=== PATIENT | female | born 1990 | race Two or more races ===

== ENCOUNTER → 2020-08-26 10:11 | Outpatient (BNVA) | payer OTHER, SELFPAY | PROVIDERS: PCP Internal Medicine; Referring Provider Internal Medicine; Visit Provider Advanced Practice Midwife | DX: Z39.2 Encounter for routine postpartum follow-up (principal); Z86.32 Personal history of gestational diabetes; Z72.51 High risk heterosexual behavior; G56.01 Carpal tunnel syndrome, right upper limb; M54.32 Sciatica, left side; Z23 Encounter for immunization | CPT/HCPCS: 99212 ==

== ENCOUNTER 2020-09-15 09:13 | Outpatient (REF) | payer OTHER, SELFPAY | END 2020-09-15 09:14 | disposition home or self-care (01) | LOC: HO.LAB 09:13 | PROVIDERS: PCP Internal Medicine; Visit Provider Internal Medicine | DX: Z20.828 Contact with and (suspected) exposure to other viral communicable diseases (principal) | CPT/HCPCS: U0003 ==

== ENCOUNTER → 2021-05-05 13:05 | Outpatient (BNVA) | payer OTHER, SELFPAY | PROVIDERS: PCP Internal Medicine; Visit Provider Obstetrics & Gynecology | DX: Z32.01 Encounter for pregnancy test, result positive (principal); Z78.9 Other specified health status | CPT/HCPCS: 99212 ==

== ENCOUNTER 2021-05-06 15:24 | Emergency (ER) | payer OTHER, SELFPAY ==
[2021-05-06 15:40] VITALS: BP 133/62; PULSE 91; RESP 16; O2SAT 100; BMI 45.8
[2021-05-06 16:38] LABS: Urine Pregnancy POSITIVE (NEGATIVE)
[2021-05-06 16:38] LABS: Appearance Urine CLEAR; Color Urine YELLOW; Glucose Urine UA NEG (NEG); Leukocyte Esterase Urine NEG (NEG); Nitrite Urine NEG (NEG); Specific Gravity - Urine 1.015 (1.005-1.025); Urine Blood NEG (NEG); Urine Ketones NEG (NEG); Urine Protein NEG (NEG-TRACE)
[2021-05-06 16:39] LABS: UPreg QC Valid YES
--- NOTE | 2021-05-06 16:41 | ED_ITS ---
HPI - Back Pain/Injury General Chief Complaint: Back Pain/Injury Stated Complaint: back pain Time Seen by Provider: 05/06/21 16:11 Source: patient Mode of arrival: ambulatory Limitations: no limitations History of Present Illness HPI Narrative: 30 y/o female with history of obesity, chronic low back pain who is currently ?5-6 weeks presents with acute on chronic non-traumatic lower back pain. She reports the pain is in a band along her lower back. Worse with walking and movement. No radiation of pain. No numbness, weakness or incontinence. She was seen by her [employer] DEVELOPER yesterday, told to take Tylenol for the back pain but she has not taken any today. She comes in today with continued pain. MD elicited complaint: back pain Pertinent past history: prior back pain Onset (ago): week(s) Timing: constant Severity: similar to previous episodes Similar Symptoms Previously: Yes Quality: aching Location: right lower back and left lower back Radiation: none Exacerbating factors: movement Relieving factors: none Context: unknown Associated symptoms: increased urinary frequency Work related injury: No Related Data Previous Rx's Medication Instructions Recorded desogestrel-e.estradiol 0.15 1 tab PO DAILY #84 tab 08/26/20 mg-0.02 mg(21)/e.estrad 0.01 mg(5) tablet vitamin with calcium 1 tab PO daily 30 Days #30 tab 05/05/21 no.72-iron 27 mg-folic acid 1 mg tablet lidocaine [Lidoderm] 1 patch TOPICAL DAILY #15 ea 05/06/21 Allergies Allergy/AdvReac Type Severity Reaction Status Date / Time No Known Allergies Allergy Verified 05/05/21 13:16 [No Known Allergies*] Review of Systems Review of Systems: Constitutional: No Fever, No Chills Cardiovascular: No Chest Pain, No SOB, No Orthopnea, No Edema Respiratory: No Cough, No Sputum Gastrointestinal: No Nausea, No Vomiting, No Diarrhea, No abdominal Pain Genitourinary: No Dysuria, + Urinary Frequency, No Hematuria Musculoskeletal: + joint pain, + Myalgias Skin: No Skin Lesions, No rash Neuro: No Weakness, No Numbness, No Dizziness, No Headache Psych: No Anxiety/Panic, No Depression Heme/Lymph: No Bruising, No Lymphadenopathy PMFSH Past Medical History Attestation statement: The following information was validated with the patient. Medical History Gestational diabetes History of chicken pox Miscarriage Obesity Scalp cyst Surgical History History of tonsillectomy Family History Family History Father High cholesterol CVD (cardiovascular disease) Mother HTN (hypertension) Maternal Grandmother Chronic mental illness ETOHism Maternal Aunt Asthma Paternal Aunt Diabetes mellitus Social History Social History Alcohol intake: never Advance Directives: No Advance Directives Information Provided: Yes Patient : Yes Sexual orientation: Straight/Heterosexual Gender identity: female Physical Exam Vital Signs: Vital Signs: Last Vital Signs Pulse 91 05/06/21 15:40 Resp 16 05/06/21 15:40 BP 133/62 05/06/21 15:40 Pulse Ox 100 05/06/21 15:40 Body Mass Index 45.8 Appearance: Alert. Oriented X3. No acute distress. HEENT: normal inspection CVS: Normal heart rate and rhythm. Pulses normal. Respiratory: No respiratory distress. Skin: Skin warm and dry. Normal skin color. Normal skin turgor. No rashes. Back: soft tissue tenderness of low lumbar area bilaterally with palpable spasm. no spinal tenderness Extremities: atraumatic, no edema Neuro: Oriented X 3. No motor deficit. No sensory deficit. Course Course Course Narrative: 30 y/o female presenting with acute on chronic low back pain. No injury. Urinary frequency but no dysuria. Will check UA to r/o infection and hematuria. We discussed limited treatment options given she is . Reevaluation(s) Reevaluation #1: UA negative. Stable for d/c with Tylenol and Lidoderm and [employer] follow up. MDM - Back Pain/Injury Lab Data Labs: Lab Results 05/06/21 05/06/21 Range/Units 16:22 16:24 Urine Color YELLOW Urine Appearance CLEAR Urine pH 7.0 (5.0-8.0) Ur Specific [place] 1.015 (1.005-1.025) Urine Protein NEG (NEG-TRACE) MG/DL Urine Glucose (UA) NEG (NEG) MG/DL Urine Ketones NEG (NEG) MG/DL Urine Blood NEG (NEG) Urine Nitrite NEG (NEG) Ur Leukocyte Esterase NEG (NEG) Urine Test POSITIVE H (NEGATIVE) Critical Care Time Critical Care Time Critical Care Time: No Discharge Plan Discharge Clinical Impression: Strain of lumbar region Qualifiers: Encounter type: initial encounter Qualified Code(s): S39.012A - Strain of muscle, fascia and tendon of lower back, initial encounter Patient Disposition: Home, Self-Care Instructions: Low Back Strain (ED), Lower Back Exercises (ED) Additional Instructions: Your urine test is negative for infection. Unfortunately there are limited treatments for back pain given you are . Recommend Tylenol 650-975 mg every 6 hours for pain. Use prescribed topical pain patches as needed for pain. No bending, lifting or twisting. Use ice several times per day for 20 minutes at a time for the next 48 hours and then change to heat. Follow up with your Primary Care Doctor & [employer] DEVELOPER this week. If your pain worsens, if you develop new numbness, tingling, weakness, loss of function or incontinence call 911 or come back to the ER right away for evaluation. Prescriptions: New lidocaine [Lidoderm] 5 % adhesive patch,medicated 1 patch topical DAILY Qty: 15 RF: 0 No Action desog-e.estradiol/e.estradiol [Mirlibratte (28)] 0.15-0.02 mgx21 /0.01 mg x 5 tablet 1 tab PO DAILY Qty: 84 RF: 3 Vitamin Plus Low Iron 27 mg iron- 1 mg tablet 1 tab PO daily 30 Days Qty: 30 RF: 11
[2021-05-06] MEDS: Lidocaine 4 % Patch ADH..PATCH 2 PATCH TRANSDERMA (16:53)
[2021-05-06] MEDS: Acetaminophen 325 MG TABLET 975 MG PO (16:53)
[2021-05-06] MEDS: Lidocaine 4 % Patch ADH..PATCH 1 PATCH TRANSDERMA (17:01)
--- NOTE | 2021-05-06 17:14 | PC.NURSE ---
RN ONLY APPLIED 2 OF THE 3 PATCHES TO PTS BACK
== END 2021-05-06 17:17 | disposition home or self-care (01) ==
PROVIDERS: Physician Assistant; Emergency Provider Emergency Medicine; PCP Internal Medicine
DX: O9A.211 Injury, poisoning and certain other consequences of external causes complicating pregnancy, first trimester (principal); S39.012A Strain of muscle, fascia and tendon of lower back, initial encounter; Z3A.00 Weeks of gestation of pregnancy not specified; X58.XXXA Exposure to other specified factors, initial encounter; Y93.9 Activity, unspecified; Y92.9 Unspecified place or not applicable; Y99.9 Unspecified external cause status
CPT/HCPCS: 81003; 81025; 99283; 99284

== ENCOUNTER 2021-05-08 14:34 | Outpatient (REF) | payer OTHER, SELFPAY ==
--- NOTE | ~2021-05-08 | US_ITS ---
EXAMINATION: OBSTETRICAL ULTRASOUND, FIRST TRIMESTER HISTORY: 30-year-old with the unknown LMP LMP: Approximately 03/22/2021 COMPARISON: None in this TECHNIQUE: Real time transabdominal imaging with color and M-mode Doppler. FINDINGS: In intrauterine, irregularly shaped gestational sac with a mean sac diameter of the 9.5 mm corresponding to 5 weeks 4 days is noted. No embryonic pole or heart motion was noted. Both maternal ovaries are seen and appear normal. GESTATIONAL AGE: 1. GA from LMP: N/A wks 2. GA from AUA: 5 4 wks ESTIMATED DATE OF DELIVERY: 1. BUDDY from LMP: N/A 2. BUDDY from AUA: 01/04/2022 US/US OB <= 14 weeks fetus IMPRESSION: 1. An empty intrauterine gestational sac 2. No embryonic pole 3. Normal ovaries 4. No free fluid Discussion: I informed the patient that the today's examination can be consistent with very early gestation. She denies vaginal bleeding or pelvic pain. Consider serial beta hCG and/or follow-up ultrasound in approximately one week. Thank you very much for this referral. This note was generated with a voice recognition program. Please excuse any errors which may have been overlooked during my review of this note. Sometimes these errors may affect the content or meaning of a given sentence.
--- NOTE | ~2021-05-08 | US_ITS ---
EXAMINATION: OBSTETRICAL ULTRASOUND, FIRST TRIMESTER HISTORY: 30-year-old with the unknown LMP LMP: Approximately 03/22/2021 COMPARISON: None in this TECHNIQUE: Real time transabdominal imaging with color and M-mode Doppler. FINDINGS: In intrauterine, irregularly shaped gestational sac with a mean sac diameter of the 9.5 mm corresponding to 5 weeks 4 days is noted. No embryonic pole or heart motion was noted. Both maternal ovaries are seen and appear normal. GESTATIONAL AGE: 1. GA from LMP: N/A wks 2. GA from AUA: 5 4 wks ESTIMATED DATE OF DELIVERY: 1. BUDDY from LMP: N/A 2. BUDDY from AUA: 01/04/2022 US/US OB transvaginal IMPRESSION: 1. An empty intrauterine gestational sac 2. No embryonic pole 3. Normal ovaries 4. No free fluid Discussion: I informed the patient that the today's examination can be consistent with very early gestation. She denies vaginal bleeding or pelvic pain. Consider serial beta hCG and/or follow-up ultrasound in approximately one week. Thank you very much for this referral. This note was generated with a voice recognition program. Please excuse any errors which may have been overlooked during my review of this note. Sometimes these errors may affect the content or meaning of a given sentence.
== END 2021-05-08 14:35 | disposition home or self-care (01) ==
LOC: HO.US 14:34
PROVIDERS: Visit Provider Obstetrics & Gynecology
DX: Z36.87 Encounter for antenatal screening for uncertain dates (principal); Z78.9 Other specified health status
CPT/HCPCS: 76801; 76817

== ENCOUNTER 2021-05-29 14:05 | Outpatient (REF) | payer OTHER, SELFPAY ==
--- NOTE | ~2021-05-29 | US_ITS ---
EXAMINATION: OBSTETRICAL ULTRASOUND, FIRST TRIMESTER HISTORY: 30-year-old at the 8.4 weeks of gestation Viability LMP: N/A COMPARISON: 05/08/2021 TECHNIQUE: Real time transabdominal imaging with color and M-mode Doppler. FINDINGS: A single, live IUP CRL of 19.2 mm c/w 8.4wks is noted. Heart Rate: 172 beats per minute. Both maternal ovaries are seen and appear normal. GESTATIONAL AGE: 1. GA from LMP: 8.4 wks 2. GA from AUA: 8.4 wks ESTIMATED DATE OF DELIVERY: 1. BUDDY from LMP: 01/04/2022 2. BUDDY from AUA: 01/04/2022 US/US OB <= 14 weeks fetus IMPRESSION: 1. A single live IUP 2. Normal ovaries 3. Best BUDDY 01/04/2022 Thank you very much for this referral. This note was generated with a voice recognition program. Please excuse any errors which may have been overlooked during my review of this note. Sometimes these errors may affect the content or meaning of a given sentence.
== END 2021-05-29 14:06 | disposition home or self-care (01) ==
LOC: HO.US 14:05
PROVIDERS: Visit Provider Obstetrics & Gynecology
DX: O36.80X0 Pregnancy with inconclusive fetal viability, not applicable or unspecified (principal)
CPT/HCPCS: 76801

== ENCOUNTER → 2021-06-10 09:51 | Outpatient (BNVA) | payer OTHER, SELFPAY | PROVIDERS: PCP Internal Medicine; Visit Provider Obstetrics & Gynecology | DX: Z34.91 Encounter for supervision of normal pregnancy, unspecified, first trimester (principal); Z3A.10 10 weeks gestation of pregnancy | CPT/HCPCS: 99212 ==

== ENCOUNTER 2021-06-19 10:35 | Outpatient (REF) | payer OTHER, SELFPAY ==
--- NOTE | ~2021-06-19 | US_ITS ---
EXAMINATION: OBSTETRICAL ULTRASOUND, FIRST TRIMESTER HISTORY: 30-year-old at 11.4 weeks of gestation NT screening COMPARISON: 05/29/2021 TECHNIQUE: Real time transabdominal imaging with color and M-mode Doppler. FINDINGS: A single, live IUP CRL of 52.8 mm c/w 12.0wks is noted. Heart Rate: 144 beats per minute. Normal yolk sac seen. NT was 1.2.mm. NB Present The embryo appears sonographically wnl for this GA. Both maternal ovaries are seen and appear normal. GESTATIONAL AGE: 1. Established GA: 11.4 wks 2. GA from AUA: 12.0 wks ESTIMATED DATE OF DELIVERY: 1. Established BUDDY: 01/04/2022 2. BUDDY from AUA: 01/01/2022 US/US OB 1T nuc measure IMPRESSION: 1. A single live IUP 2. Size equals dates 3. NT of 1.2 mm MFM Consultation: I reviewed the ultrasound findings along with significance of NT measurement. The NT of less than 3mm is generally reassuring. However, the sensitivity for T21 detection is only 60%. I reviewed the availability of serum aneuploidy screening which includes cell-free DNA and placental protein based tests. I discussed the sensitivity, false-positive rate, and other limitations associated with each test. I also reviewed the availability of invasive diagnostic tests that are associated small but definite risk of miscarriage. We also reviewed the differences between screening tests and diagnostic tests. After our discussion, she opted for the First trimester screening that is based on cell-free DNA or non-invasive testing (NIPT). The result will be faxed to your office in approximately 7 days. A follow up at 18 weeks for survey has been scheduled. Thank you very much for this referral. Total time 30 minutes. The time spent was devoted to counseling the patient about the disease and diagnosis, coordinating care including reviewing her records, pertinent lab data and studies, as well as discussing diagnostic evaluation and workup, plan therapeutic interventions and future disposition of care. This includes any additional research needed to obtain further information in formulating the plan of care of this patient. This note was generated with a voice recognition program. Please excuse any errors which may have been overlooked during my review of this note. Sometimes these errors may affect the content or meaning of a given sentence.
== END 2021-06-19 10:36 | disposition home or self-care (01) ==
LOC: HO.US 10:35
PROVIDERS: Visit Provider Obstetrics & Gynecology
DX: Z36.82 Encounter for antenatal screening for nuchal translucency (principal)
CPT/HCPCS: 76813

== ENCOUNTER 2021-06-25 11:25 | Outpatient (REF) | payer OTHER, SELFPAY ==
[2021-06-25 13:14] LABS: Hematocrit 34.6 % (37-47); Hemoglobin 10.9 g/dl (12.0-16.0); Mean Corpuscular HGB Conc 31.5 g/dl (31.0-35.0); Mean Corpuscular Hemoglobin 24.3 pg (27.0-33.0); Mean Corpuscular Volume 77.2 fL (80-98); Mean Platelet Volume 11.1 fL (9.4-12.3); Platelet Count 226 X10*3/uL (160-400); Red Blood Count 4.48 X10*6/uL (4.20-5.50); Red Cell Distribution Width 16.2 % (11.0-16.0); White Blood Count 7.6 X10*3/uL (4.8-10.8)
[2021-06-25 13:28] LABS: Glucose 1 Hour PP 50gm Dose 148 mg/dL (60-140)
[2021-06-25 14:06] LABS: Fentanyl, urine Not Detected (Not Detect)
[2021-06-25 14:25] LABS: Amphetamine Screen Urine Not Detected (Not Detect); Barbiturates, Urine Not Detected (Not Detect); Benzodiazepines Screen Urine Not Detected (Not Detect); Cannabinoid Screen Urine Not Detected (Not Detect); Cocaine Screen Urine Not Detected (Not Detect); Opiate Screen Urine Not Detected (Not Detect); Phencyclidine Screen Urine Not Detected (Not Detect)
[2021-06-26 04:31] LABS: HBsAGNum1 0.19 S/CO (0.00-0.99); HIV AB/AG Nonreactive (Nonreactive); HIV Num 1 0.05 S/CO (0.00-0.99); Hepatitis B Surface Antigen Negative (Negative); ~HepC Num1 0.15 S/CO (0.00-0.79); ~Hepatitis C Antibody Nonreactive (Nonreactive)
[2021-06-27 01:22] LABS: Rubella IgG Antibody 1.17 Index
[2021-06-27 08:29] LABS: Syphilis Screen Nonreactive (Nonreactive)
== END 2021-06-25 11:26 | disposition home or self-care (01) ==
LOC: HO.LAB 11:25
PROVIDERS: PCP Internal Medicine; Visit Provider Obstetrics & Gynecology
DX: Z34.90 Encounter for supervision of normal pregnancy, unspecified, unspecified trimester (principal)
CPT/HCPCS: 80307; 85027; 86762; 86780; 86787; 86803; 86850; 86900; 86901; 87086; 87340; 87389

== ENCOUNTER 2021-07-23 10:50 | Outpatient (REF) | payer OTHER, SELFPAY ==
[2021-07-24 02:56] LABS: CT PCR NOT DETECTED (Not Detect.); NG PCR NOT DETECTED (Not Detect.)
[2021-07-24 11:29] LABS: BV Int Neg Control Negative (Negative); BV Int Pos Control Positive (Positive)
== END 2021-07-23 10:51 | disposition home or self-care (01) ==
LOC: HO.LAB 10:50
PROVIDERS: PCP Internal Medicine; Visit Provider Advanced Practice Midwife
DX: O09.299 Supervision of pregnancy with other poor reproductive or obstetric history, unspecified trimester (principal); O99.810 Abnormal glucose complicating pregnancy; O99.212 Obesity complicating pregnancy, second trimester; E66.01 Morbid (severe) obesity due to excess calories; Z3A.16 16 weeks gestation of pregnancy; Z68.41 Body mass index [BMI] 40.0-44.9, adult; Z86.32 Personal history of gestational diabetes
CPT/HCPCS: 81003; 87480; 87491; 87510; 87591; 87660; 99212

== ENCOUNTER 2021-08-14 13:28 | Outpatient (REF) | payer OTHER, SELFPAY ==
--- NOTE | ~2021-08-14 | US_ITS ---
EXAMINATION: US OBSTETRICAL CLINICAL INFORMATION: A 31-year-old at the 19.4 weeks of gestation Suspected anomaly High BMI COMPARISON: 06/19/2021 TECHNIQUE: Real-time transabdominal ultrasound was performed using C1-5 megahertz transducer. FINDINGS: A single, active, fetus is seen in vertex presentation. The placenta is anterior without previa, and the amniotic fluid volume is wnl. MEASUREMENTS: 1. Biparietal Diameter: 4.6 cm; 19.6 wks 2. Occipital Frontal Diameter: 5.9 cm 3. Head Circumference: 16.95 cm; 19.5 wks 4. Abdominal Circumference: 15.1 cm; 20.3 wks 5. Femur Length: 3.23 cm; 20.1 wks 6. Humerus Length: 3.2 cm; 20.5 wks 7. Tibia Length: 2.6 cm; 19.3 wks 8. Ulna Length: 2.9 cm; 20.6 wks 9. Lateral ventricle: 0.8 cm 10. Cerebellum: 1.91 cm; 19.5 wks 11. Cisterna Magna: 0.4 cm 12. Nuchal Fold: 3.83 mm 13. Heart Rate: 143 beats per minute Rt ovary: normal Lt ovary: normal Cervical length 4.6 cm on T/A. GESTATIONAL AGE: 1. Established GA: 19.4 wks 2. GA from [facility]: 20.1 wks ESTIMATED DATE OF DELIVERY: 1. Established BUDDY: The 01/04/2022 2. BUDDY from [facility]: 12/31/2021 ANATOMY: The view of RVOT was suboptimal due to position and maternal body habitus. The visualized anatomy includes but not limited to: 1. Cranium: Normal 2. Intracranial anatomy: cavum septum pellucidi, lateral ventricles, choroid plexus, cerebellum, posterior fossa, third and fourth ventricles. 3. face: orbits, lip/palate, profile, nasal bone 4. Heart: four-chamber view of the heart, ventricular septum, foramen ovale, pulmonary vein, left and right outflow tracts, three-vessel view, 3 vessel trachea view, aortic and ductal arches, situs.. 5. Diaphragm: Normal 6. Abdominal wall: Normal 7. Cord Insertion: Normal 8. Spine: Cervical, thoracic, lumbar, sacral. 9. Stomach: Normal size and shape 10. Right Kidney: Normal 11. Left Kidney: Normal 12. 3 vessel cord: Normal 13. Upper extremity: Open hands, fifth digit. 14. Lower extremity: Tibia, fibula, bilateral feet. 15. Bladder: Normal 16. Genitalia: Female, patient aware US/US OB /maternal detail IMPRESSION: 1. Single, living, intrauterine with appropriate biometry. 2. Suboptimal views of RVOT. Remainder of the survey was within normal limits. DISCUSSION: I reviewed today's ultrasound findings. We discussed the limitations of ultrasound in diagnosing aneuploidy and other congenital abnormalities. I reviewed the differences between screening test and diagnostic test. Amniocentesis was discussed and declined. She was informed that the baseline incidence of congenital abnormalities is approximately 3-5%. Not all these conditions are diagnosable in utero. RECOMMENDATIONS: 1. A follow-up has been scheduled in 3 weeks. Thank you for allowing me to participate in her care. Total time 30 minutes. The time spent was devoted to counseling the patient about the disease and diagnosis, coordinating care including reviewing her records, pertinent lab data and studies, as well as discussing diagnostic evaluation and workup, plan therapeutic interventions and future disposition of care. This includes any additional research needed to obtain further information in formulating the plan of care of this patient. This note was generated with a voice recognition program. Please excuse any errors which may have been overlooked during my review of this note. Sometimes these errors may affect the content or meaning of a given sentence.
== END 2021-08-14 13:29 | disposition home or self-care (01) ==
LOC: HO.US 13:28
PROVIDERS: PCP Internal Medicine; Visit Provider Advanced Practice Midwife
DX: Z36.3 Encounter for antenatal screening for malformations (principal)
CPT/HCPCS: 76811

== ENCOUNTER → 2021-08-20 10:53 | Outpatient (BNVA) | payer OTHER, SELFPAY | PROVIDERS: PCP Internal Medicine; Visit Provider Advanced Practice Midwife | DX: O24.419 Gestational diabetes mellitus in pregnancy, unspecified control (principal); O99.212 Obesity complicating pregnancy, second trimester; E66.01 Morbid (severe) obesity due to excess calories; Z3A.20 20 weeks gestation of pregnancy; Z86.32 Personal history of gestational diabetes | CPT/HCPCS: 81003; 99212 ==

== ENCOUNTER 2021-09-04 13:54 | Outpatient (REF) | payer OTHER, SELFPAY ==
--- NOTE | ~2021-09-04 | US_ITS ---
EXAMINATION: OBSTETRICAL ULTRASOUND, Follow up HISTORY: 31-year-old at the 22.4 weeks of gestation High BMI GDM Complete the survey COMPARISON: 08/14/2021 TECHNIQUE: Real time transabdominal imaging with color and M-mode Doppler. PRESENTATION: Vertex PLACENTA LOCATION: Anterior without previa AMNIOTIC FLUID: Normal MEASUREMENTS: 1. Biparietal Diameter: 5.7 cm; 23.3 wks 2. Head Circumference: 20.4 cm; 22.4 wks 3. Abdominal Circumference: 18.7 cm; 23.4 wks 4. Femur Length: 4.0 cm; 22.6 wks 5. Heart Rate: 146 beats per minute WEIGHT: Estimated weight is 568 grams (1 lbs 4 oz) -- 72 %. Normal views of lateral cerebral ventricle, profile, nose/lips, 4ch view, LVOT, RVOT, gender. GESTATIONAL AGE: 1. Established GA: 22.4 wks 2. GA from AUA: 23.1 wks ESTIMATED DATE OF DELIVERY: 1. Established BUDDY: 01/04/2022 2. BUDDY from AUA: 12/31/2021 US/US OB follow up IMPRESSION: 1. A single fetus with appropriate interval growth. 2. Previously limited views of the anatomy were seen as listed above. No abnormalities were noted in visualized anatomy. 3. This completes the survey. She is currently on GDM diet. Reports that her fasting values range from 101-105. Has not been keeping track of her postprandial glucose values. We discussed the clinical consequences of suboptimally controlled maternal blood sugar. These include the macrosomia as well as hypoglycemia. Suggest a follow-up in 4 weeks (not scheduled). I reviewed the limitations of ultrasound in diagnosing aneuploidy and other congenital abnormalities. She was informed that the baseline instance of congenital abnormalities and defects in the general population is approximately 3-5%. Not all these conditions are diagnosable in utero. Thank you very much for this referral. Total time 30 minutes. The time spent was devoted to counseling the patient about the disease and diagnosis, coordinating care including reviewing her records, pertinent lab data and studies, as well as discussing diagnostic evaluation and workup, plan therapeutic interventions and future disposition of care. This includes any additional research needed to obtain further information in formulating the plan of care of this patient. This note was generated with a voice recognition program. Please excuse any errors which may have been overlooked during my review of this note. Sometimes these errors may affect the content or meaning of a given sentence.
== END 2021-09-04 13:55 | disposition home or self-care (01) ==
LOC: HO.US 13:54
PROVIDERS: Visit Provider Advanced Practice Midwife
DX: O24.419 Gestational diabetes mellitus in pregnancy, unspecified control (principal)
CPT/HCPCS: 76816

== ENCOUNTER → 2021-09-08 12:36 | Outpatient (BNVA) | payer OTHER, SELFPAY | PROVIDERS: PCP Internal Medicine; Visit Provider Obstetrics & Gynecology | DX: O24.415 Gestational diabetes mellitus in pregnancy, controlled by oral hypoglycemic drugs (principal); O40.2XX0 Polyhydramnios, second trimester, not applicable or unspecified; O09.292 Supervision of pregnancy with other poor reproductive or obstetric history, second trimester; Z3A.23 23 weeks gestation of pregnancy; Z79.84 Long term (current) use of oral hypoglycemic drugs | CPT/HCPCS: 99212 ==

== ENCOUNTER 2021-09-10 09:41 | Outpatient (REF) | payer OTHER, SELFPAY ==
--- NOTE | 2021-09-10 09:44 | EMG_ITS ---
Right median and ulnar motor and sensory studies were performed. Right radial sensory studies were performed and paraspinal muscles were tested. IMPRESSION: [id number] right median neuropathy across carpal tunnel. MD JAYLEEN Mullins/GIOVANNI / [id number]
== END 2021-09-10 09:42 | disposition home or self-care (01) ==
LOC: HO.NEURO 09:41
PROVIDERS: Visit Provider Internal Medicine
DX: R20.0 Anesthesia of skin (principal); R20.2 Paresthesia of skin
CPT/HCPCS: 95886; 95909

== ENCOUNTER → 2021-09-16 13:08 | Outpatient (BNVA) | payer OTHER, SELFPAY | PROVIDERS: Visit Provider Obstetrics & Gynecology | DX: O24.415 Gestational diabetes mellitus in pregnancy, controlled by oral hypoglycemic drugs (principal); Z3A.24 24 weeks gestation of pregnancy | CPT/HCPCS: 99212 ==

== ENCOUNTER → 2021-10-01 12:43 | Outpatient (BNVA) | payer OTHER, SELFPAY | PROVIDERS: Visit Provider Obstetrics & Gynecology | DX: O24.415 Gestational diabetes mellitus in pregnancy, controlled by oral hypoglycemic drugs (principal); Z3A.26 26 weeks gestation of pregnancy | CPT/HCPCS: 99212 ==

== ENCOUNTER 2022-01-28 17:49 | Emergency (ER) | payer OTHER, SELFPAY ==
--- NOTE | ~2022-01-28 | US_ITS ---
EXAMINATION: US ABDOMEN LIMITED CLINICAL INFORMATION: Question gallstones with nausea vomiting and right upper quadrant pain. COMPARISON: None TECHNIQUE: Real-time imaging of the gallbladder only was performed. FINDINGS: GALLBLADDER: Numerous gallstones are present in the gallbladder. The patient was tender over the gallbladder (positive Khan's sign). The gallbladder wall measured 3 mm in thickness. No pericholecystic fluid was seen. No fluid was noted in the gallbladder wall. COMMON BILE DUCT: Normal in caliber measuring 0.4 cm in diameter. US/US abdomen limited IMPRESSION: Cholelithiasis with a positive Khan's sign. No pericholecystic fluid collections or grossly abnormal wall thickening. The common bile duct was normal in caliber.
[2022-01-28 17:52] VITALS: BP 134/112; PULSE 115; RESP 19; TEMP 36.9; O2SAT 98; BMI 42.5
--- NOTE | 2022-01-28 18:17 | ECG_ITS ---
Test Reason : ABD PAIN Blood Pressure : / mmHG Vent. Rate : 083 BPM Atrial Rate : 083 BPM P-R Int : 172 ms QRS Dur : 102 ms QT Int : 366 ms P-R-T Axes : 043 050 030 degrees QTc Int : 430 ms Sinus rhythm with marked sinus arrhythmia Incomplete right bundle branch block Borderline ECG No previous ECGs available Referred By: Es Powell Electronically Signed By:PRASHANT THOMASON
--- NOTE | 2022-01-28 18:19 | ED_ITS ---
HPI - Abdominal Pain General Chief Complaint: Abdominal Pain Stated Complaint: severe abd pain, difficulty breathing Time Seen by Provider: 01/28/22 18:12 Source: patient Mode of arrival: ambulatory Limitations: no limitations History of Present Illness HPI narrative: 31yo female with pmh of obesity here with complaints of upper abdominal pain, nausea and vomiting for the last 1 hour. Patient had intermittent episodes the last few weeks. Patient reports pain radiates up the chest. There is no shortness of breath, cough, fever, urinary symptoms, diarrhea or constipation. Related Data Previous Rx's Medication Instructions Recorded ferrous sulfate 324 mg (65 mg 324 mg PO BID #60 tab 07/23/21 iron) tablet,delayed release vitamin with calcium 1 tab PO DAILY #90 tab 07/23/21 no.72-iron 27 mg-folic acid 1 mg tablet ( Vitamins Plus Low Iron) blood sugar diagnostic (FreeStyle #150 ea 08/20/21 Lite Strips) blood-glucose meter (FreeStyle #1 ea 08/20/21 [place] Lite) lancets 28 gauge (FreeStyle #100 ea 08/20/21 Lancets) metformin 500 mg tablet 500 mg PO DAILY #60 tab 09/08/21 Allergies Allergy/AdvReac Type Severity Reaction Status Date / Time No Known Allergies Allergy Verified 08/20/21 11:00 [No Known Allergies*] Review of Systems Review of Systems Yes all other systems are reviewed and are negative Constitutional: Reports no additional constitutional complaints, Denies body ache(s), Denies chills, Denies fever(s), Denies headache(s) and Denies weakness Eyes: Reports no additional eye complaints and Denies change in vision Reports system reviewed and no additional complaints, except as documented, Denies dizziness, Denies headache(s), Denies nasal congestion, Denies nasal discharge and Denies neck pain Cardiovascular: Reports no additional cardiovascular complaints, Reports chest pain, Denies leg edema and Denies dyspnea Respiratory: Reports no additional respiratory complaints, Denies cough and Denies dyspnea Gastrointestinal: Reports no additional gastrointestinal complaints, Reports abdominal pain, Denies diarrhea, Reports nausea and Reports vomiting Genitourinary: Reports no additional female genitourinary complaints and Denies urinary incontinence Musculoskeletal: Reports no additional musculoskeletal complaints, Denies back pain, Denies arthralgias, Denies joint swelling, Denies neck pain, Denies numbness and Denies tingling Skin/Breast: Reports system reviewed and no additional complaints, except as docu and Denies rash Reports system reviewed and no additional complaints, except as documented, Denies dizziness, Denies headache(s), Denies numbness, Denies tingling and Denies weakness PMFSH Past Medical History Attestation statement: The following information was validated with the patient. Source: old records reviewed and nursing notes reviewed Medical History Gestational diabetes History of chicken pox Miscarriage Numbness and tingling in right hand Obesity Scalp cyst Surgical History History of tonsillectomy Family History Family History Father High cholesterol CVD (cardiovascular disease) Mother HTN (hypertension) Maternal Grandmother Chronic mental illness ETOHism Maternal Aunt Asthma Paternal Aunt Diabetes mellitus Social History Social History Household Members: Children Housing: Apartment Alcohol intake: former Patient Tobacco Use Status: Never used Tobacco e-Cigarette/Vaping Use: Never Used Second Hand Smoke Exposure: No Special jony needs: No Agree to transfusion: Yes Advance Directives: No Advance Directives Information Provided: No Patient : No service: No Current occupational status: employed Sexual orientation: Straight/Heterosexual Gender identity: Female Physical Exam ED Vital Signs: Vital Signs - 24 hr 01/28/22 17:52 Temperature 98.5 F Pulse Rate 115 H Respiratory Rate 19 Blood Pressure 134/112 H Pulse Oximetry 98 BMI result Body Mass Index 42.5 Const Other: +in pain, crying General: alert Orientation/consciousness: patient oriented x3 Limitations: no limitations HENMT Head: Yes normal to inspection Ears: hearing grossly normal bilaterally General nose exam: Normal external nose present Face and sinus: Yes normal facial exam Mouth: Normal oral and palatal mucosa present Throat: Yes posterior oropharynx normal, Yes tonsils normal and Yes uvula midline Eyes General: appearance normal, both eyes and all related structures Pupils: Equal, round and reactive pupils present Neck Neck: Yes normal visual inspection, Yes full ROM, Yes no lymphadenopathy and Yes no meningeal signs Chest Chest palpation & inspection: normal inspection of the chest Resp Effort & Inspection: normal respiratory effort Auscultation: clear to auscultation bilaterally Cardio Rate: regular rate Rhythm: regular rhythm Peripheral pulses: Peripheral pulses 2+ throughout GI Inspection: Yes normal to inspection Palpation (GI): Soft to palpation and Tenderness to palpation present (GI) (epigastric ) General: Yes no CVA tenderness Back/Spine/Pelvis Back: no CVA tenderness Skin General skin exam: no rashes or lesions noted Neuro General: patient oriented x3, moves all extremities and no meningeal signs Cranial nerves: Yes Equal, round and reactive pupils present Extrem General: Yes normal to inspection, Yes no pedal edema and Yes no calf tenderness Course Course Course Narrative: 31 yo female here with upper AP, vomiting. Will check labs, EKG, UA, abdominal US 1999-ultrasound shows gallstones with no evidence of acute cholecystitis. Patient is feeling improved after receiving 1 dose of morphine. Her labs are unremarkable. Her LFTs are all normal. Her repeat abdominal exam shows no pain. She is tolerating liquids with no additional vomiting episodes. I discussed with her that we can discharge her home. She should follow a low-fat diet and follow-up with surgery for elective cholecystectomy if she wishes. Reviewed worrisome signs and symptoms of when to return to the emergency depar tment. Comfortable discharge home. MDM - Abdominal Pain MDM Narrative Medical decision making narrative: Gastritis, GERD, ACS, cholecystitis Medical Records Attestation: I reviewed the patient's medical records. Lab Data Attestation: I reviewed the patient's lab results. Result diagrams: 01/28/22 18:44 01/28/22 18:44 Labs: Lab Results 01/28/22 01/28/22 01/28/22 Range/Units 18:44 18:44 18:44 WBC 9.0 (4.8-10.8) X10*3/uL RBC 4.87 (4.20-5.50) X10*6/uL Hgb 10.9 L (12.0-16.0) g/dl Hct 36.0 L (37.0-47.0) % MCV 73.9 L (80.0-98.0) fL MCH 22.4 L (27.0-33.0) pg MCHC 30.3 L (31.0-35.0) g/dl RDW 18.0 H (11.0-16.0) % Plt Count 308 (160-400) X10*3/uL MPV 10.2 (9.4-12.3) fL Immature Gran % (Auto) 0.7 H (0.0-0.4) % Neut % (Auto) 52.0 (45-73) % Lymph % (Auto) 37.0 (20-40) % [place] % (Auto) 7.8 (2-11) % Eos % (Auto) 2.2 (0-4) % Baso % (Auto) 0.3 (0-2) % Lymph # (Auto) 3.3 (1.2-4.9) X10*3/uL [place] # (Auto) 0.7 (0.1-1.2) X10*3/uL Eos # (Auto) 0.2 (0.0-0.4) X10*3/uL Baso # (Auto) 0.0 (0.0-0.2) X10*3/uL Abs Immat Gran (auto) 0.06 H (0.00-0.03) X10*3/uL Absolute Neuts (auto) 4.7 (2.0-8.3) x10*3/uL Absolute Nucleated RBC 0.000 (0.0-0.012) X10*3/uL Nucleated RBC % (auto) 0.0 (0.0-0.2) /100WBC Sodium 141 (135-145) mmol/L Potassium 3.8 (3.3-5.1) mmol/L Chloride 107 (96-108) mmol/L Carbon Dioxide 24 (22-29) mmol/L Anion Gap 14 (12-20) BUN 10 (9-16) mg/dL Creatinine 0.67 (0.5-1.4) mg/dL Estim Creat Clear Calc 146.6 Estimated GFR > 60 Random Glucose 91 (60-115) mg/dL Calcium 9.4 (8.4-10.2) mg/dL Total Bilirubin 0.6 (0.0-1.0) mg/dL Direct Bilirubin 0.3 (0.0-0.5) mg/dL AST 24 (5-31) U/L ALT 26 (0-31) U/L Alkaline Phosphatase 109 (39-117) U/L Troponin I High Sens < 3.5 (<3.5-17.0) ng/L Total Protein 7.3 (6.5-8.0) g/dL Albumin 4.2 (3.5-5.0) g/dL Urine Color Urine Appearance Urine pH (5.0-8.0) Ur Specific [place] (1.005-1.025) Urine Protein (NEG-TRACE) MG/DL Urine Glucose (UA) (NEG) MG/DL Urine Ketones (NEG) MG/DL Urine Blood (NEG) Urine Nitrite (NEG) Ur Leukocyte Esterase (NEG) Urine RBC (0) /HPF Urine WBC (0-4) /HPF Ur Squamous Epith Cells /LPF Urine Bacteria /LPF Urine Test (NEGATIVE) 01/28/22 01/28/22 Range/Units 20:21 20:21 WBC (4.8-10.8) X10*3/uL RBC (4.20-5.50) X10*6/uL Hgb (12.0-16.0) g/dl Hct (37.0-47.0) % MCV (80.0-98.0) fL MCH (27.0-33.0) pg MCHC (31.0-35.0) g/dl RDW (11.0-16.0) % Plt Count (160-400) X10*3/uL MPV (9.4-12.3) fL Immature Gran % (Auto) (0.0-0.4) % Neut % (Auto) (45-73) % Lymph % (Auto) (20-40) % [place] % (Auto) (2-11) % Eos % (Auto) (0-4) % Baso % (Auto) (0-2) % Lymph # (Auto) (1.2-4.9) X10*3/uL [place] # (Auto) (0.1-1.2) X10*3/uL Eos # (Auto) (0.0-0.4) X10*3/uL Baso # (Auto) (0.0-0.2) X10*3/uL Abs Immat Gran (auto) (0.00-0.03) X10*3/uL Absolute Neuts (auto) (2.0-8.3) x10*3/uL Absolute Nucleated RBC (0.0-0.012) X10*3/uL Nucleated RBC % (auto) (0.0-0.2) /100WBC Sodium (135-145) mmol/L Potassium (3.3-5.1) mmol/L Chloride (96-108) mmol/L Carbon Dioxide (22-29) mmol/L Anion Gap (12-20) BUN (9-16) mg/dL Creatinine (0.5-1.4) mg/dL Estim Creat Clear Calc Estimated GFR Random Glucose (60-115) mg/dL Calcium (8.4-10.2) mg/dL Total Bilirubin (0.0-1.0) mg/dL Direct Bilirubin (0.0-0.5) mg/dL AST (5-31) U/L ALT (0-31) U/L Alkaline Phosphatase (39-117) U/L Troponin I High Sens (<3.5-17.0) ng/L Total Protein (6.5-8.0) g/dL Albumin (3.5-5.0) g/dL Urine Color YELLOW Urine Appearance CLEAR Urine pH 6.5 (5.0-8.0) Ur Specific [place] <= 1.005 (1.005-1.025) Urine Protein NEG (NEG-TRACE) MG/DL Urine Glucose (UA) NEG (NEG) MG/DL Urine Ketones NEG (NEG) MG/DL Urine Blood NEG (NEG) Urine Nitrite NEG (NEG) Ur Leukocyte Esterase TRACE H (NEG) Urine RBC 0-2 (0) /HPF Urine WBC 0-2 (0-4) /HPF Ur Squamous Epith Cells TRACE /LPF Urine Bacteria TRACE /LPF Urine Test NEGATIVE (NEGATIVE) Imaging Data US - abdomen: Attestation: I personally reviewed and interpreted this imaging study as follows: Radiologist's impression: [address] [address] Ultrasound Report Signed Patient: Cynthia Mac MR#: [id number] : 1990 Acct:[id number] Age/Sex: 31 / F ADM Date: 01/28/22 Loc: .ED Attending Dr: Ordering Physician: Es Powell NP Date of Service: 01/28/22 Procedure(s): US abdomen limited Accession Number(s): [id number] cc: Es Powell NP~ EXAMINATION: US ABDOMEN LIMITED CLINICAL INFORMATION: Question gallstones with nausea vomiting and right upper quadrant pain. COMPARISON: None TECHNIQUE: Real-time imaging of the gallbladder only was performed. FINDINGS: GALLBLADDER: Numerous gallstones are present in the gallbladder. The patient was tender over the gallbladder (positive Khan's sign). The gallbladder wall measured 3 mm in thickness. No pericholecystic fluid was seen. No fluid was noted in the gallbladder wall. COMMON BILE DUCT: Normal in caliber measuring 0.4 cm in diameter. US/US abdomen limited IMPRESSION: Cholelithiasis with a positive Khan's sign. No pericholecystic fluid collections or grossly abnormal wall thickening. The common bile duct was normal in caliber. ECG Data Attestation: I personally reviewed and interpreted this ECG as follows: ECG interpretation date: 01/28/22 ECG interpretation time: 18:24 Interpretation: Sinus rhythm with sinus arrhythmia, rate of 83, normal [place], normal QRS Discharge Plan Discharge Clinical Impression: Gallstones Patient Disposition: Home, Self-Care Instructions: Gallstones (ED) Additional Instructions: Very low-fat diet Prescriptions: No Action Vitamin Plus Low Iron 27 mg iron- 1 mg tablet 1 tab PO DAILY Qty: 90 5RF ferrous sulfate 324 mg (65 mg iron) tablet,delayed release (DR/EC) 324 mg PO BID Qty: 60 5RF (DME) FreeStyle Lite Strips Strip See Rx Instructions .ROUTE .MEDSUPPLY Qty: 150 6RF Rx Instructions: four times a day (DME) lancets [FreeStyle Lancets] 28 gauge misc See Rx Instructions .ROUTE .MEDSUPPLY Qty: 100 6RF Rx Instructions: four times as day (DME) blood-glucose meter [FreeStyle [place] Lite] Kit See Rx Instructions .ROUTE .MEDSUPPLY Qty: 1 0RF Rx Instructions: four times a day metformin 500 mg tablet 500 mg PO DAILY Qty: 60 0RF Rx Instructions: Take 1 tablet daily at bedtime after dinner Referrals: Rigo Varela MD [Physician] - 2 days Interventions: ED Discharge Assessment Last Done: 01/28/22 20:50 Discharge Date/Time: 01/28/22 20:51
[2022-01-28] MEDS: Morphine Sulfate 4 MG/ML CARTRIDGE IVPUSH (18:48)
[2022-01-28] MEDS: ondansetron HCL 4 MG/2 ML VIAL IVPUSH (18:48)
[2022-01-28] MEDS: 0.9 % Sodium Chloride 1,000 ML 999 ML IV (18:48)
[2022-01-28 18:49] LABS: MANUAL DIFF FLAG NO
[2022-01-28 18:50] LABS: Basophils Percent Auto 0.3 % (0-2); Eosinophils Absolute Auto 0.2 X10*3/uL (0.0-0.4); Eosinophils Percent Auto 2.2 % (0-4); Hemoglobin 10.9 g/dl (12.0-16.0); Imm Gran Abs Auto 0.06 X10*3/uL (0.00-0.03); Imm Gran Pct Auto 0.7 % (0.0-0.4); Lymphocytes Absolute Auto 3.3 X10*3/uL (1.2-4.9); Mean Corpuscular HGB Conc 30.3 g/dl (31.0-35.0); Mean Corpuscular Hemoglobin 22.4 pg (27.0-33.0); Mean Corpuscular Volume 73.9 fL (80.0-98.0); Mean Platelet Volume 10.2 fL (9.4-12.3); Monocytes Absolute Auto 0.7 X10*3/uL (0.1-1.2); Monocytes Percent Auto 7.8 % (2-11); Neutrophils Absolute Auto 4.7 x10*3/uL (2.0-8.3); Platelet Count 308 X10*3/uL (160-400); Red Blood Count 4.87 X10*6/uL (4.20-5.50)
[2022-01-28 19:04] LABS: Alanine Aminotransferase 26 U/L (0-31); Albumin Level 4.2 g/dL (3.5-5.0); Alkaline Phosphatase 109 U/L (39-117); Anion Gap 14 (12-20); Aspartate Amino Transferase 24 U/L (5-31); Bilirubin Direct 0.3 mg/dL (0.0-0.5); Bilirubin Total 0.6 mg/dL (0.0-1.0); Blood Urea Nitrogen 10 mg/dL (9-16); Calcium 9.4 mg/dL (8.4-10.2); Carbon Dioxide 24 mmol/L (22-29); Chloride 107 mmol/L (96-108); Creatinine Clr Calc Pharmacy 146.6; Estimated Glomerular Filt Rate > 60; Glucose Random 91 mg/dL (60-115); Potassium 3.8 mmol/L (3.3-5.1); Sodium 141 mmol/L (135-145); Total Protein 7.3 g/dL (6.5-8.0)
[2022-01-28 19:10] LABS: Troponin-I High Sensitivity < 3.5 ng/L (<3.5-17.0)
[2022-01-28 20:29] LABS: Appearance Urine CLEAR; Color Urine YELLOW; Glucose Urine UA NEG (NEG); Leukocyte Esterase Urine TRACE (NEG); Nitrite Urine NEG (NEG); PH 6.5 (5.0-8.0); Specific Gravity - Urine <= 1.005 (1.005-1.025); UACC Culture Trigger YES; Urine Blood NEG (NEG); Urine Ketones NEG (NEG); Urine Protein NEG (NEG-TRACE)
[2022-01-28 20:30] LABS: UPreg QC Valid YES; Urine Pregnancy NEGATIVE (NEGATIVE)
[2022-01-28 20:39] LABS: Bacteria Urine TRACE /LPF; RBC Urine 0-2 /HPF (0); Squamous Epithelial Cell Urine TRACE /LPF; WBC Urine 0-2 /HPF (0-4)
--- NOTE | 2022-01-28 20:51 | PC.NURSE ---
I assumed nursing care of this pt at 1900. Since that time she has been resting in bed comfortably, states she is pain free. She has had U/s, labs and urine provided and is D/C'd at this time. We reviewed DC instructions and she verbalized an understanding of all DC orders and she ambulated out of the ED independently and with steady gait.
== END 2022-01-28 20:51 | disposition home or self-care (01) ==
PROVIDERS: Nurse Practitioner Family; Emergency Provider Emergency Medicine
DX: K80.20 Calculus of gallbladder without cholecystitis without obstruction (principal); R10.10 Upper abdominal pain, unspecified
CPT/HCPCS: 36415; 76705; 80048; 80076; 81001; 81025; 84484; 85025; 87086; 93005; 96361; 96374; 96375; 99283; 99284; J2270; J2405

== ENCOUNTER 2022-02-06 05:24 | Emergency (ER) | payer OTHER, SELFPAY ==
--- NOTE | ~2022-02-06 | US_ITS ---
EXAMINATION: US ABDOMEN LIMITED CLINICAL INFORMATION: Known gallstones. Rule out acute cholecystitis.. COMPARISON: Previous abdominal ultrasound 01/28/2022 TECHNIQUE: Real-time imaging of the right upper quadrant abdominal viscera. FINDINGS: PANCREAS: Normal. LIVER: Normal. The liver is normal in size. The liver contour is normal. Parenchymal echogenicity is normal. No focal hepatic lesion. There is no intrahepatic biliary duct dilatation seen. GALLBLADDER: There are gallstones in the gallbladder. The gallbladder wall is normal in thickness. There is no gallbladder wall edema or pericholecystic fluid. The histology technologist does not report that the patient is tender the gallbladder. COMMON BILE DUCT: Normal in caliber measuring 0.3 cm in diameter. RIGHT KIDNEY: Normal. No hydronephrosis. No renal calculi or focal parenchymal lesions. The kidney measures 12 cm in maximum dimension. FREE FLUID: None. US/US abdomen limited IMPRESSION: Gallstones. No evidence of acute cholecystitis.
[2022-02-06 05:34] VITALS: BP 126/48; PULSE 90; RESP 18; TEMP 37; O2SAT 100; BMI 42.5
[2022-02-06] MEDS: 0.9 % Sodium Chloride 1,000 ML 999 ML IVCONT (06:22)
--- NOTE | 2022-02-06 06:23 | ED.ABDPAIN ---
HPI - Abdominal Pain General Chief Complaint: Abdominal Pain Stated Complaint: gallstone pain Time Seen by Provider: 02/06/22 05:49 Source: patient Mode of arrival: ambulatory Limitations: no limitations History of Present Illness HPI narrative: Comes to the emergency room complaining of epigastric and right upper quadrant pain. Patient was evaluated on January 28, diagnosed with cholelithiasis, patient has an appointment with Dr. Varela on February 10 for cholecystectomy. Patient states that she can no longer tolerate the pain. Patient denies vomiting or diarrhea. Related Data Previous Rx's Medication Instructions Recorded ferrous sulfate 324 mg (65 mg 324 mg PO BID #60 tab 07/23/21 iron) tablet,delayed release vitamin with calcium 1 tab PO DAILY #90 tab 07/23/21 no.72-iron 27 mg-folic acid 1 mg tablet ( Vitamins Plus Low Iron) blood sugar diagnostic (FreeStyle #150 ea 08/20/21 Lite Strips) blood-glucose meter (FreeStyle #1 ea 08/20/21 [place] Lite) lancets 28 gauge (FreeStyle #100 ea 08/20/21 Lancets) metformin 500 mg tablet 500 mg PO DAILY #60 tab 09/08/21 Allergies Allergy/AdvReac Type Severity Reaction Status Date / Time No Known Allergies Allergy Verified 02/06/22 05:40 [No Known Allergies*] Review of Systems Review of Systems Constitutional : No Weight loss, No Fever, No Chills, No Night Sweats, No Fatigue, No Malaise ENT/Mouth : No Hearing loss, No Ear Pain, No Nasal Congestion, No Sinus Pain, No Hoarseness, No sore throat, No Rhinorrhea, No Swallowing Difficulty Eyes: No Eye Pain, No Swelling, No Redness, No Foreign Body, No Discharge, No Vision Changes Cardiovascular : No Chest Pain, No SOB, No Dyspnea on Exertion, No Orthopnea, No Edema, No Palpitations Respiratory : No Cough, No Sputum, No Wheezing, No Smoke Exposure, No Dyspnea Gastrointestinal : No Nausea, No Vomiting, No Diarrhea, No Constipation, complaining of epigastric pain, No Hematochezia, No Melena Genitourinary : no irregular bleeding, No Dysuria, No Urinary Frequency, No Hematuria, No Urinary Incontinence, No Urgency, No Flank Pain, No Urinary Flow Changes, No Hesitancy Musculoskeletal : No joint pain, No Myalgias, No Joint Swelling Skin : No Skin Lesions, No rash Neuro : No Weakness, No Numbness, No Paresthesias, No Loss of Consciousness, No Dizziness, No Headache Psych : No Anxiety/Panic, No Depression, No SI/HI/AH/VH, No Social Issues, Heme/Lymph: No Bruising, No Bleeding,No Lymphadenopathy Endocrine : No Polyuria, No Polydipsia, No Temperature Intolerance [facility] Past Medical History Medical History Gestational diabetes History of chicken pox Miscarriage Numbness and tingling in right hand Obesity Scalp cyst Surgical History History of tonsillectomy Family History Family History Father High cholesterol CVD (cardiovascular disease) Mother HTN (hypertension) Maternal Grandmother Chronic mental illness ETOHism Maternal Aunt Asthma Paternal Aunt Diabetes mellitus Social History Social History Household Members: Children Housing: Apartment Alcohol intake: former Patient Tobacco Use Status: Never used Tobacco e-Cigarette/Vaping Use: Never Used Second Hand Smoke Exposure: No Special jony needs: No Agree to transfusion: Yes Advance Directives: No Advance Directives Information Provided: No Patient : No service: No Current occupational status: employed Sexual orientation: Straight/Heterosexual Gender identity: Female Physical Exam ED Vital Signs: Vital Signs - 24 hr 02/06/22 05:34 Temperature 98.6 F Pulse Rate 90 Respiratory Rate 18 Blood Pressure 126/48 L Pulse Oximetry 100 BMI result Body Mass Index 42.5 Const Other: Appearance: Alert. Oriented X3. No acute distress. Eyes: Pupils equal, round and reactive to light. ENT: Pharynx normal. Neck: Normal inspection. Neck supple. No lymph nodes noted. No crepitus CVS: Normal heart rate and rhythm. Pulses normal. Normal S1 and S2 Respiratory: No respiratory distress. Breath sounds normal. No Wheezing. No rales Abdomen: Soft and nontender. No rigidity. No distention. Skin: Skin warm and dry. Normal skin color. Normal skin turgor. Extremities: No lower extremity edema. No Lacerations. No Rash Neuro: Oriented X 3. No motor deficit. No sensory deficit. Moving all extremities. No slurred speech. CN 2 through 12 grossly intact Psych: calm, cooperative, normal affect MDM - Abdominal Pain Lab Data Result diagrams: 02/06/22 06:20 02/06/22 06:20 Labs: Lab Results 02/06/22 02/06/22 Range/Units 06:20 06:20 WBC 10.1 (4.8-10.8) X10*3/uL RBC 5.06 (4.20-5.50) X10*6/uL Hgb 11.4 L (12.0-16.0) g/dl Hct 37.5 (37.0-47.0) % MCV 74.1 L (80.0-98.0) fL MCH 22.5 L (27.0-33.0) pg MCHC 30.4 L (31.0-35.0) g/dl RDW 18.6 H (11.0-16.0) % Plt Count 250 (160-400) X10*3/uL MPV 10.7 (9.4-12.3) fL Immature Gran % (Auto) 0.5 H (0.0-0.4) % Neut % (Auto) 63.2 (45-73) % Lymph % (Auto) 28.1 (20-40) % [place] % (Auto) 5.9 (2-11) % Eos % (Auto) 1.9 (0-4) % Baso % (Auto) 0.4 (0-2) % Lymph # (Auto) 2.8 (1.2-4.9) X10*3/uL [place] # (Auto) 0.6 (0.1-1.2) X10*3/uL Eos # (Auto) 0.2 (0.0-0.4) X10*3/uL Baso # (Auto) 0.0 (0.0-0.2) X10*3/uL Abs Immat Gran (auto) 0.05 H (0.00-0.03) X10*3/uL Absolute Neuts (auto) 6.4 (2.0-8.3) x10*3/uL Absolute Nucleated RBC 0.000 (0.0-0.012) X10*3/uL Nucleated RBC % (auto) 0.0 (0.0-0.2) /100WBC Sodium 140 (135-145) mmol/L Potassium 4.4 (3.3-5.1) mmol/L Chloride 106 (96-108) mmol/L Carbon Dioxide 22 (22-29) mmol/L Anion Gap 16 (12-20) BUN 12 (9-16) mg/dL Creatinine 0.60 (0.5-1.4) mg/dL Estim Creat Clear Calc 163.7 Estimated GFR > 60 Random Glucose 109 (60-115) mg/dL Calcium 9.4 (8.4-10.2) mg/dL Total Bilirubin 0.7 (0.0-1.0) mg/dL Direct Bilirubin 0.2 (0.0-0.5) mg/dL AST 25 (5-31) U/L ALT 30 (0-31) U/L Alkaline Phosphatase 95 (39-117) U/L Total Protein 7.5 (6.5-8.0) g/dL Albumin 4.2 (3.5-5.0) g/dL Lipase 29 (8-78) U/L Discharge Plan Discharge Clinical Impression: Cholecystitis Patient Disposition: Still a Patient Prescriptions: No Action Vitamin Plus Low Iron 27 mg iron- 1 mg tablet 1 tab PO DAILY Qty: 90 5RF ferrous sulfate 324 mg (65 mg iron) tablet,delayed release (DR/EC) 324 mg PO BID Qty: 60 5RF (DME) FreeStyle Lite Strips Strip See Rx Instructions .ROUTE .MEDSUPPLY Qty: 150 6RF Rx Instructions: four times a day (DME) lancets [FreeStyle Lancets] 28 gauge misc See Rx Instructions .ROUTE .MEDSUPPLY Qty: 100 6RF Rx Instructions: four times as day (DME) blood-glucose meter [FreeStyle [place] Lite] Kit See Rx Instructions .ROUTE .MEDSUPPLY Qty: 1 0RF Rx Instructions: four times a day metformin 500 mg tablet 500 mg PO DAILY Qty: 60 0RF Rx Instructions: Take 1 tablet daily at bedtime after dinner
[2022-02-06 06:28] LABS: MANUAL DIFF FLAG NO
[2022-02-06 06:32] LABS: Basophils Percent Auto 0.4 % (0-2); Eosinophils Absolute Auto 0.2 X10*3/uL (0.0-0.4); Eosinophils Percent Auto 1.9 % (0-4); Hematocrit 37.5 % (37.0-47.0); Hemoglobin 11.4 g/dl (12.0-16.0); Imm Gran Abs Auto 0.05 X10*3/uL (0.00-0.03); Imm Gran Pct Auto 0.5 % (0.0-0.4); Lymphocytes Absolute Auto 2.8 X10*3/uL (1.2-4.9); Lymphocytes Percent Auto 28.1 % (20-40); Mean Corpuscular HGB Conc 30.4 g/dl (31.0-35.0); Mean Corpuscular Hemoglobin 22.5 pg (27.0-33.0); Mean Corpuscular Volume 74.1 fL (80.0-98.0); Mean Platelet Volume 10.7 fL (9.4-12.3); Monocytes Absolute Auto 0.6 X10*3/uL (0.1-1.2); Monocytes Percent Auto 5.9 % (2-11); Neutrophils Absolute Auto 6.4 x10*3/uL (2.0-8.3); Neutrophils Percent Auto 63.2 % (45-73); Platelet Count 250 X10*3/uL (160-400); Red Blood Count 5.06 X10*6/uL (4.20-5.50); Red Cell Distribution Width 18.6 % (11.0-16.0); White Blood Count 10.1 X10*3/uL (4.8-10.8)
[2022-02-06] MEDS: Ketorolac Tromethamine 15 MG/ML VIAL IVPUSH (06:33)
[2022-02-06 06:50] LABS: Alanine Aminotransferase 30 U/L (0-31); Albumin Level 4.2 g/dL (3.5-5.0); Alkaline Phosphatase 95 U/L (39-117); Anion Gap 16 (12-20); Aspartate Amino Transferase 25 U/L (5-31); Bilirubin Direct 0.2 mg/dL (0.0-0.5); Bilirubin Total 0.7 mg/dL (0.0-1.0); Blood Urea Nitrogen 12 mg/dL (9-16); Calcium 9.4 mg/dL (8.4-10.2); Carbon Dioxide 22 mmol/L (22-29); Chloride 106 mmol/L (96-108); Creatinine Clr Calc Pharmacy 163.7; Estimated Glomerular Filt Rate > 60; Glucose Random 109 mg/dL (60-115); Lipase 29 U/L (8-78); Potassium 4.4 mmol/L (3.3-5.1); Sodium 140 mmol/L (135-145); Total Protein 7.5 g/dL (6.5-8.0)
--- NOTE | 2022-02-06 08:13 | PC.NURSE ---
the surgeon at bedside elevating pt
[2022-02-06 08:29] VITALS: BP 118/46; PULSE 88; RESP 20; O2SAT 100
--- NOTE | 2022-02-06 09:40 | P.CONGS_ITS ---
History of Present Illness Consult details Consult date: 02/06/22 Narrative: 31-year-old female patient presenting with complaints of abdominal pain in the right upper quadrant. She has had several episodes of abdominal pain similar to this beginning during her . She is now proximally 1 month . She did report gestational diabetes but now no longer requires diabetic medications. The pain has become more severe and more frequent but does seem to be related to dietary intake. She reports eating a cheeseburger, [employer], and chips prior to the onset of pain. Her pain was initially 10/10 currently is much improved. Workup in the emergency department revealed a normal WBC, normal liver function tests, and ultrasound which revealed gallstones within the gallb ladder but without wall thickening or pericholecystic fluid. The common bile duct was normal. Review of Systems Constitutional: Constitutional: Denies chills, Denies fever(s), Denies headache(s) and Denies poor appetite ENT: Denies dizziness and Denies headache(s) Cardiovascular: Cardiovascular: Denies chest pain, Denies rapid heart rate, Denies palpitations and Denies slow heart rate Respiratory: Respiratory: Denies chest congestion, Denies cough, Denies pain on inspiration and Denies wheezing Gastrointestinal: Gastrointestinal: Reports as per HPI, Reports abdominal pain, Denies bloating, Denies change in stool character, Denies constipation, Denies diarrhea, Denies nausea, Denies vomiting and Denies hematemesis Musculoskeletal: Musculoskeletal: Denies back pain, Denies arthralgias, Denies joint swelling and Denies numbness Integumentary/Breasts: Skin/Breast: Denies change in pigmentation, Denies erythema and Denies rash Neurologic: Denies dizziness, Denies headache(s) and Denies numbness Psychiatric: Psychiatric: Denies anxiety and Denies depression Endocrine: Endocrine: Denies palpitations Hematologic/Lymphatic: Hematologic/Lymphatic: Denies easy bleeding, Denies easy bruising and Denies lymphadenopathy Allergic/Immunologic: Allergic/Immunologic: Denies wheezing PMFSH Past Medical History Medical History Gestational diabetes History of chicken pox Miscarriage Numbness and tingling in right hand Obesity Scalp cyst Family History Family History Father High cholesterol CVD (cardiovascular disease) Mother HTN (hypertension) Maternal Grandmother Chronic mental illness ETOHism Maternal Aunt Asthma Paternal Aunt Diabetes mellitus Surgical History Surgical History History of tonsillectomy Social History Social History Household Members: Children Housing: Apartment Alcohol intake: former Patient Tobacco Use Status: Never used Tobacco e-Cigarette/Vaping Use: Never Used Second Hand Smoke Exposure: No Use of substances other than those prescribed or required for medical reasons: No Special jony needs: No Agree to transfusion: Yes Advance Directives: No Advance Directives Information Provided: No Patient : No service: No Current occupational status: employed Sexual orientation: Straight/Heterosexual Gender identity: Female Meds Allergies Allergy/AdvReac Type Severity Reaction Status Date / Time No Known Allergies Allergy Verified 02/06/22 05:40 [No Known Allergies*] Physical Exam Vital Signs: Vital Signs: Last Vital Signs Temp 98.6 F 02/06/22 05:34 Pulse 88 02/06/22 08:29 Resp 20 02/06/22 08:29 BP 118/46 L 02/06/22 08:29 Pulse Ox 100 02/06/22 08:29 BMI result Body Mass Index 42.5 Const: General: cooperative, comfortable and well developed Nutritional Appearance: well nourished Orientation/consciousness: patient oriented x3 Eyes: Sclerae: sclerae normal EOM: EOMs intact bilaterally Neck: Neck: Yes normal visual inspection Resp: Effort & Inspection: normal respiratory effort, no cough, no respiratory distress and no stridor Cardio: Jugular venous distension: no JVD GI: Inspection: Yes normal to inspection Palpation (GI): Soft to palpation, nontender (Negative Khan sign), no guarding and not rigid Skin: General skin exam: dry skin Rashes: no rashes Neuro: General: patient oriented x3 and no focal motor deficits Extrem: General: Yes full ROM and Yes no clubbing, cyanosis or edema Psych: Appearance: grossly normal Results Labs Result diagrams: 02/06/22 06:20 02/06/22 06:20 Labs: Abnormal lab results 02/06/22 Range/Units 06:20 Hgb 11.4 L (12.0-16.0) g/dl MCV 74.1 L (80.0-98.0) fL MCH 22.5 L (27.0-33.0) pg MCHC 30.4 L (31.0-35.0) g/dl RDW 18.6 H (11.0-16.0) % Immature Gran % (Auto) 0.5 H (0.0-0.4) % Abs Immat Gran (auto) 0.05 H (0.00-0.03) X10*3/uL Short CBC 02/06/22 Range/Units 06:20 WBC 10.1 (4.8-10.8) X10*3/uL Hgb 11.4 L (12.0-16.0) g/dl Hct 37.5 (37.0-47.0) % Plt Count 250 (160-400) X10*3/uL BMP 02/06/22 06:20 Sodium 140 Potassium 4.4 Chloride 106 Carbon Dioxide 22 BUN 12 Creatinine 0.60 Calcium 9.4 Liver Function 02/06/22 Range/Units 06:20 Total Bilirubin 0.7 (0.0-1.0) mg/dL Direct Bilirubin 0.2 (0.0-0.5) mg/dL AST 25 (5-31) U/L ALT 30 (0-31) U/L Alkaline Phosphatase 95 (39-117) U/L Albumin 4.2 (3.5-5.0) g/dL All other labs normal. Imaging Abdominal ultrasound report/results: image reviewed Assessment and Plan (1) Biliary colic: Status: Acute Plan 31-year-old female patient presenting with complaints of abdominal pain in the right upper quadrant which seems to be associated with fatty food intake. Pain is now much improved and her laboratories are normal. I recommended she stay on a low-fat diet including no fried/greasy foods. She is scheduled to see Dr. Varela on 02/10/2022 for an evaluation for possible laparoscopic cholecystectomy. She will be given a prescription for oxycodone p.r.n. pain by the ED physician. Procedures Date of Service Date of Service: 02/06/22
== END 2022-02-06 08:37 | disposition home or self-care (01) ==
PROVIDERS: Emergency Medicine; Emergency Provider Emergency Medicine; PCP Internal Medicine
DX: K80.50 Calculus of bile duct without cholangitis or cholecystitis without obstruction (principal); R10.10 Upper abdominal pain, unspecified
CPT/HCPCS: 36415; 76705; 80048; 80076; 83690; 85025; 96361; 96374; 96375; 99284; J1885

== ENCOUNTER → 2022-02-10 10:01 | Outpatient (BNVA) | payer OTHER, SELFPAY | PROVIDERS: PCP Internal Medicine; Referring Provider Internal Medicine; Visit Provider Surgery | DX: K80.20 Calculus of gallbladder without cholecystitis without obstruction (principal) | CPT/HCPCS: 99202 ==

== ENCOUNTER 2022-02-22 23:51 | Emergency (ER) | payer OTHER, SELFPAY ==
[2022-02-23 00:10] LABS: Hematocrit 37.4 % (37.0-47.0); Hemoglobin 11.5 g/dl (12.0-16.0); Mean Corpuscular HGB Conc 30.7 g/dl (31.0-35.0); Mean Corpuscular Hemoglobin 22.8 pg (27.0-33.0); Mean Corpuscular Volume 74.2 fL (80.0-98.0); Mean Platelet Volume 10.8 fL (9.4-12.3); Platelet Count 316 X10*3/uL (160-400); Red Blood Count 5.04 X10*6/uL (4.20-5.50); Red Cell Distribution Width 18.2 % (11.0-16.0); White Blood Count 9.9 X10*3/uL (4.8-10.8)
[2022-02-23 00:32] LABS: Alanine Aminotransferase 23 U/L (0-31); Albumin Level 4.6 g/dL (3.5-5.0); Alkaline Phosphatase 113 U/L (39-117); Anion Gap 12 (12-20); Aspartate Amino Transferase 23 U/L (5-31); Bilirubin Total 0.3 mg/dL (0.0-1.0); Blood Urea Nitrogen 9 mg/dL (9-16); Calcium 9.9 mg/dL (8.4-10.2); Carbon Dioxide 26 mmol/L (22-29); Chloride 108 mmol/L (96-108); Estimated Glomerular Filt Rate > 60; Glucose Random 78 mg/dL (60-115); Potassium 4.2 mmol/L (3.3-5.1); Sodium 142 mmol/L (135-145); Total Protein 7.9 g/dL (6.5-8.0)
[2022-02-23 00:33] VITALS: BP 143/103; PULSE 105; RESP 22; TEMP 37.1; O2SAT 100; BMI 43.4
== END 2022-02-23 02:05 | disposition left against medical advice (07) ==
PROVIDERS: Emergency Provider Emergency Medicine; PCP Internal Medicine
DX: R11.0 Nausea (principal); M54.50 Low back pain, unspecified
CPT/HCPCS: 36415; 80053; 85027; 99282; 99283

== ENCOUNTER 2022-04-05 11:38 | Emergency (ER) | payer OTHER, SELFPAY ==
[2022-04-05 12:12] VITALS: BP 128/68; PULSE 95; RESP 18; TEMP 36.9; O2SAT 98; BMI 44.1
--- NOTE | 2022-04-05 13:57 | ED.ALLEREA ---
HPI - Allergic Reaction General Chief complaint: Allergic Reaction Stated complaint: allergic reaction both legs Time Seen by Provider: 04/05/22 13:52 History of Present Illness HPI narrative: Patient complains of itchy rash on both legs for several days after putting baby oil on them prior to shaving her legs, no difficulty breathing no throat swelling no rash anywhere else Related Data Previous Rx's Medication Instructions Recorded hydrocortisone 2.5 % lotion 1 appl TOPICAL BID PRN #118 ml 02/11/22 albuterol sulfate 90 mcg/actuation 2 inh INHALATION Q6H #6.7 g 03/31/22 aerosol inhaler cetirizine 10 mg tablet 10 mg PO DAILY #30 tab 03/31/22 ferrous sulfate 324 mg (65 mg 324 mg PO DAILY #30 tab 03/31/22 iron) tablet,delayed release cetirizine 10 mg capsule 10 mg PO DAILY PRN #14 cap 04/05/22 diphenhydramine HCl 25 mg capsule 25 mg PO BEDTIME PRN #7 cap 04/05/22 (Benadryl) hydrocortisone 2.5 % topical cream 1 appl TOPICAL TID PRN #30 g 04/05/22 prednisone 20 mg tablet 60 mg PO DAILY 3 Days #9 tab 04/05/22 Allergies Allergy/AdvReac Type Severity Reaction Status Date / Time No Known Allergies Allergy Verified 02/11/22 16:37 [No Known Allergies*] Review of Systems Review of Systems: Positive for rash on both legs Negatives no fever no chills no dizziness no weakness no headache no neck pain no difficulty breathing or swallowing no throat swelling no chest pain no shortness of breath no abdominal pain no vomiting no joint swelling or joint pains Yes all other systems are reviewed and are negative [facility] Past Medical History Source: nursing notes reviewed Medical History (Updated 04/05/22 @ 14:01 by GENESIS Tucker) Gallstones Gestational diabetes History of chicken pox Miscarriage Numbness and tingling in right hand Obesity Scalp cyst Surgical History History of tonsillectomy Family History Family History (Updated 02/11/22 @ 16:31 by MAYCOL Jimenez) Father High cholesterol CVD (cardiovascular disease) Mother HTN (hypertension) Maternal Grandmother Chronic mental illness ETOHism Maternal Aunt Asthma Paternal Aunt Diabetes mellitus Other Mental health disorder Social History Social History Household Members: Children Housing: Apartment Alcohol intake: former Patient Tobacco Use Status: Never used Tobacco e-Cigarette/Vaping Use: Never Used Second Hand Smoke Exposure: No Special jony needs: No Agree to transfusion: Yes Advance Directives: No Advance Directives Information Provided: No service: No Current occupational status: employed Sexual orientation: Straight/Heterosexual Gender identity: Female Cognitive needs: No Hearing needs: No Vision needs: Yes (contacts) Physical Exam ED Vital Signs: Vital Signs - 24 hr 04/05/22 12:12 Temperature 98.4 F Pulse Rate 95 Respiratory Rate 18 Blood Pressure 128/68 Pulse Oximetry 98 BMI result Body Mass Index 44.1 General appearance no distress comfortable relax The eyes no redness or discharge The nose not congested The pharynx no swelling no impairment of breathing or swallowing Neck is supple The chest is clear with full symmetric equal breath sounds Heart no murmur Extremities full range of motion x4 Skin there is a macular papular raised rash, nontender on lower legs below the knee on both legs, there is full range motion in both ankles and knees, there is no open wound Neuro no focal motor sensory deficits Course Course Course Narrative: Exam of both lower legs shows a rash which is likely a contact dermatitis, no evidence of cellulitis or abscess or wound and she is treated with steroids and antihistamines Discharge Plan Discharge Clinical Impression: Rash, skin, Contact dermatitis Patient Disposition: Home, Self-Care Additional Instructions: It looks like the rash on her legs is a contact dermatitis meeting the oil to put on her legs may be something that caused a local allergic reaction We are using antihistamine Zyrtec and prednisone which hopefully will help the symptoms, you could also apply hydrocortisone cream If needed at night if the itches bad you can also take Benadryl in addition, but it does make you sleepy so you need 8 hours before the Benadryl wears off Return any concerns Prescriptions: New cetirizine 10 mg capsule 10 mg PO DAILY PRN (Reason: allergy symptoms) Qty: 14 0RF prednisone 20 mg tablet 60 mg PO DAILY 3 Days Qty: 9 0RF diphenhydramine HCl [Benadryl] 25 mg capsule 25 mg PO BEDTIME PRN (Reason: allergy symptoms) Qty: 7 0RF hydrocortisone 2.5 % cream 1 appl topical TID PRN (Reason: itching) Qty: 30 0RF No Action albuterol sulfate 90 mcg/actuation HFA aerosol inhaler 2 inh inhalation Q6H Qty: 6.7 0RF cetirizine 10 mg tablet 10 mg PO DAILY Qty: 30 0RF ferrous sulfate 324 mg (65 mg iron) tablet,delayed release (DR/EC) 324 mg PO DAILY Qty: 30 0RF hydrocortisone 2.5 % lotion 1 appl topical BID PRN (Reason: allergic reaction) Qty: 118 0RF
[2022-04-05] MEDS: Loratadine 10 MG TABLET PO (14:05)
[2022-04-05] MEDS: predniSONE 20 MG TABLET 60 MG PO (14:05)
== END 2022-04-05 14:13 | disposition home or self-care (01) ==
PROVIDERS: Emergency Provider Emergency Medicine; PCP Internal Medicine
DX: R21 Rash and other nonspecific skin eruption (principal); L25.8 Unspecified contact dermatitis due to other agents
CPT/HCPCS: 99282; 99283

== ENCOUNTER 2022-04-09 08:37 | Day surgery (SDC) | payer OTHER, SELFPAY ==
[2022-04-05 10:49] VITALS: BMI 43.5
[2022-04-06 10:28] VITALS: BMI 43.5
--- NOTE | 2022-04-08 08:49 | P.CONAN_ITS ---
Documented by User: Azul Turpin NP 04/08/22 08:51 HPI - Anesthesia Eval Consult details Narrative: 31yo F for Cholecystectomy Laparoscopic PMFSH Active Problems Active Problems: All Active Problems (Updated 04/06/22 @ 10:30 by Alyssia Carmichael RN) Encounter for assessment (Acute) History of gestational diabetes (Acute) History of unprotected sex (Acute) Carpal tunnel syndrome of right wrist (Acute) Sciatica of left side (Acute) Screening for diabetes mellitus (DM) (Acute) (Acute) Encounter for screening for malformation using ultrasound (Acute) History of gestational diabetes mellitus (GDM) in prior , currently (Acute) Elevated glucose tolerance test (Acute) Obesity, morbid, BMI 40.0-49.9 (Acute) Gestational diabetes mellitus (GDM) affecting , antepartum (Acute) Gestational diabetes mellitus (GDM) affecting , antepartum (Acute) Biliary colic (Acute) Physical exam (Acute) Wheezing (Acute) History of gestational diabetes mellitus (GDM) (Acute) Generalized rash (Acute) Iron deficiency anemia (Acute) Cholelithiasis (Acute) Gallstones (Acute) Numbness and tingling in right hand (Acute) Past Medical History Medical History (Updated 04/06/22 @ 10:30 by Alyssia Carmichael RN) Gallstones Gestational diabetes History of chicken pox Miscarriage Numbness and tingling in right hand Obesity Scalp cyst Wears contact lenses Family History Family History (Updated 02/11/22 @ 16:31 by MAYCOL Jimenez) Father High cholesterol CVD (cardiovascular disease) Mother HTN (hypertension) Maternal Grandmother Chronic mental illness ETOHism Maternal Aunt Asthma Paternal Aunt Diabetes mellitus Other Mental health disorder Surgical History Surgical History (Updated 04/06/22 @ 10:25 by Alyssia Carmichael RN) History of tonsillectomy Hx of removal of cyst Social History Social History Household Members: Children Housing: Apartment 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 If so, by whom?: No Special jony needs: No Agree to transfusion: Yes Are you DNR?: No Advance Directives: No Advance Directives Information Provided: Yes Advance Directives on File: No Recently lost weight without trying: No Patient : No : No Poor oral hygiene: No service: No Current occupational status: employed Sexual orientation: Straight/Heterosexual Gender identity: Female Cognitive needs: No Hearing needs: No Vision needs: Yes (contacts) Meds Allergies Allergy/AdvReac Type Severity Reaction Status Date / Time No Known Allergies Allergy Verified 04/09/22 08:45 [No Known Allergies*] Home Medications Medication Instructions Recorded Confirmed Last Taken Type albuterol sulfate 90 mcg/actuation 2 puff PO Q6H 04/06/22 04/06/22 Unknown History aerosol inhaler (ProAir HFA) Exam Exam Date and Time: April 08, 2022 0849 Height,Weight and Vital Signs: Height 5 ft 3 in Weight 111.584 kg Pertinent Lab Results Pertinent Lab Results: Laboratory Tests 02/23/22 02/23/22 00:06 00:06 WBC 9.9 Hgb 11.5 L Hct 37.4 Plt Count 316 D Sodium 142 Potassium 4.2 Chloride 108 Carbon Dioxide 26 BUN 9 Creatinine 0.68 Narrative Narrative: EKG 01/2022 Vent. Rate : 083 BPM ? ? Atrial Rate : 083 BPM ?? P-R Int : 172 ms? QRS Dur : 102 ms ? ? QT Int : 366 ms ? ? ? P-R-T Axes : 043 050 030 degrees ?? QTc Int : 430 ms ? Sinus rhythm with marked sinus arrhythmia Incomplete right bundle branch block Borderline ECG No previous ECGs available ? Assessment and Plan Assessment Anesthesia Assessment: Chart Reviewed Documented by User: Carlos Foley MD 04/09/22 13:14 HPI - Anesthesia Eval Consult details Narrative: 31yo F for Cholecystectomy Laparoscopic Morbid Obesity [facility] Past Medical History Medical History (Updated 04/06/22 @ 10:30 by Alyssia Carmichael RN) Gallstones Gestational diabetes History of chicken pox Miscarriage Numbness and tingling in right hand Obesity Scalp cyst Wears contact lenses Family History Family History (Updated 02/11/22 @ 16:31 by MAYCOL Jimenez) Father High cholesterol CVD (cardiovascular disease) Mother HTN (hypertension) Maternal Grandmother Chronic mental illness ETOHism Maternal Aunt Asthma Paternal Aunt Diabetes mellitus Other Mental health disorder Family history of problems with anesthesia: No Surgical History Surgical History (Updated 04/06/22 @ 10:25 by Alyssia Carmichael RN) History of tonsillectomy Hx of removal of cyst History of Problems with Anesthesia: No Social History Social History Household Members: Children Housing: Apartment 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 If so, by whom?: No Special jony needs: No Agree to transfusion: Yes Are you DNR?: No Advance Directives: No Advance Directives Information Provided: Yes Advance Directives on File: No Recently lost weight without trying: No Patient : No : No Poor oral hygiene: No service: No Current occupational status: employed Sexual orientation: Straight/Heterosexual Gender identity: Female Cognitive needs: No Hearing needs: No Vision needs: Yes (contacts) Meds Allergies Allergy/AdvReac Type Severity Reaction Status Date / Time No Known Allergies Allergy Verified 04/09/22 08:45 [No Known Allergies*] Home Medications Medication Instructions Recorded Confirmed Last Taken Type albuterol sulfate 90 mcg/actuation 2 puff PO Q6H 04/06/22 04/06/22 Unknown History aerosol inhaler (ProAir HFA) Exam Airway Mallampati Class: II TM Dist: >3cm Neck ROM: Full Loose/Missing/Broken Teeth: Yes Heart: S1 , S2 Lungs: distant breath sounds Assessment and Plan Assessment Anesthesia Assessment: Anesthesia Plan Discussed Final Anesthetic Review Family History of Problems with Anesthesia: No History of Problems with Anesthesia: No NPO: Yes ASA Class: III Final Preanesthetic Review: Meds/Allgs Chart Reviewed, Consent Obtained/Reviewed and Anes Risks/Benef Reviewed Patient Risk: High Procedure Risk: Intermediate Anesthetic Plan Anesthetic Plan: GA Disposition: Standard PACU
[2022-04-09] VITALS (19 sets, daily range): BP systolic 120–160; BP diastolic 71–95; PULSE 66–99; RESP 12–20; TEMP 36.3–36.6; O2SAT 96–100
--- NOTE | 2022-04-09 08:27 | MHC.SHP ---
Pre-Procedural Eval Section A Date of Service: 04/09/22 Section B Chief Complaint: gall stones Details of Present Illness: has had symptomatic gallstones with right upper quadrant pain periodically Relevant Family History (Specify if Yes): No Relevant Social History: None Present Medications: see Short Stay Collaborative assessment Medical History: Significant History ( morbid obesity) History of Previous Operations: Relevant previous surgery/procedure and date(s) Allergies: Allergies Allergy/AdvReac Type Severity Reaction Status Date / Time No Known Allergies Allergy Verified 04/06/22 10:25 [No Known Allergies*] Review of Systems Sugical H&P ROS: Negative: Constitution, Cardiovascular, Respiratory, Neurological, Psychiatric, Hem-Onc, Allergic/Immunologic, Gastrointestinal, Genitourinary, Musculoskeletal, Integumentary, Endocrine and Eyes/Ears/Nose/Throat Exam Surgical H&P Exam: Normal: HEENT, Normal: Heart, Normal: Lungs, Normal: Extremities, Normal: Abdomen, Normal: Skin and Normal: Neurological Exam Comment: morbidly obese Plan Diagnosis/Plan: Unchanged I have reviewed the history and physical and performed a pertinent physical examination on my patient. No changes have occurred unless specified.
[2022-04-09] MEDS: Acetaminophen 325 MG TABLET 650 MG PO (08:56)
[2022-04-09] MEDS: Lactated Ringers 1,000 ML 50 ML IVCONT (09:06)
[2022-04-09 09:08] LABS: UPreg QC Valid YES; Urine Pregnancy NEGATIVE (NEGATIVE)
--- NOTE | 2022-04-09 10:51 | P.OP_ITS ---
Operative Note Operative Note Date of Service: 04/09/22 Narrative: Preop diagnosis: Symptomatic gallstones Postop diagnosis: Symptomatic gallstone Procedure: Laparoscopic cholecystectomy Surgeon: Rigo Varela The patient is a 31 year female, morbidly obese, who had gallstones on ultrasound. She describes periodic right upper quadrant pain and therefore wanted to proceed with cholecystectomy. She understood the technique of laparoscopic cholecystectomy. Was aware of the risks, benefits, and alternatives. She understood that her perioperative risks were higher in view of her morbid obesity. She was brought to the operating room. She was placed supine on the table under general anesthesia via endotracheal tube. The abdomen is prepped and draped in the usual sterile fashion. Surgical time-out was done. The patient received Cefotan 2 g IV preoperatively I made a short incision on the skin above the umbilicus using blade 15. And this carried down through the full-thickness skin subcutaneous fat. The patient was centrally obese so we had to go through a thick amount of subcutaneous fat before able to feel for the fascia. I had to use appendiceal retractors because of the very deep subcutaneous fat to allow me visualization of the fascia.I was able to eventually visualize the fascia and made an incision here to enter the peritoneal cavity. This was achieved with significant difficulty in view of her centrol obesity with a very thick subcutaneous fat I inserted the Dorene port. This had to be hubbed all the way in view of the thickness of the abdominal wall. I used a flat mm scope. With laparoscopic visualization inserted a 5/12 mm port in the epigastric area below the subcostal margin. Two 5 mm ports introduced small incisions below the subcostal margin along the anterior axillary line and the midclavicular line. Graspers were placed through these working ports. The patient was placed in head-up and [id number] position. I was able to visualize the gallbladder. This was supple and not inflamed cared a grasper at the fundus. This was used to retract the gallbladder cephalad. Cephalad retraction was limited in view of the bending of the grasper due to the angulation required because of her very thick abdominal wall I applied another grasper towards the pouch of the gallbladder and this was used to retract the gallbladder laterally. At this point the gallbladder was being retracted in a cephalad and lateral fashion. I carefully dissected the neck of the gallbladder using the [place] dissector to carefully tease off the peritoneum and Rambo tissue until I was able to visualize the cystic duct. With careful dissection, I was able to define the cystic duct along with its confluence with the neck of the gallbladder. By doing so was able to achieve a critical view of the hepato cystic triangle. The cystic artery was also seen but there were no other tubular structures visualized. I therefore applied clips on the cystic duct with 2 clips being applied distally. The cystic duct was transected between clips with Endo scissors. I applied clips on the cystic artery and this was transected between clips with Endo scissors as well. With traction on the gallbladder away from the liver bed I proceeded to then divide across the hilum using the electrocautery spatula. I reached the interface of the gallbladder wall the liver bed. I then incised the peritoneum of the gallbladder using the electrocautery spatula and define a plane of dissection between the gallbladder wall and the liver bed with ambulation of blood dissection with the tip as well as with electrocautery itself. I separat ed the gallbladder along this plane of dissection although there were parts wherein the superficial layer of the gallbladder was coming off with the gallbladder wall. I cauterized this to achieve hemostasis I continued to separate the gallbladder off of the liver bed all the way to the fundus anterior the entire gallbladder was completely . The gallbladder was retrieved through an endobag through the umbilical incision. I reinserted all ports and re-insufflated. I examined the dissection. There was Good hemostasis. However in view of some bare areas on the bed of the liver, I positioned Surgicel packings on to this. I then copiously irrigated. I suctioned out the irrigant fluid. I observed all 4 quadrants laparoscopically and there was no other pathology nor any evidence of any bowel injury. Once hemostasis was ensured, I proceeded to then desufflate through the port sites. I closed the fascia of the umbilical incision with [id number] Dexon 0 stitch. Again this was achieved with difficulty in view of the very of deep nature of the subcutaneous fat. The incisions were infiltrated with Marcaine 0.5% for postop analgesia. Steri- Strips and dressings were applied. The procedure was then completed . The patient tolerated procedure well. There were no immediate complications. Estimated blood loss was about 30 cc. The patient was extubated without difficulty and transferred to the recovery room with stable vital signs.
[2022-04-09] MEDS: fentaNYL citrate/PF 100 MCG/2 ML VIAL 25 MCG IVPUSH ×4 (11:14→11:40)
[2022-04-09] MEDS: HYDROmorphone HCl 0.5 MG/0.5 ML SYRINGE 0.25 MG IVPUSH ×3 (11:45→13:37)
[2022-04-09] MEDS: oxyCODONE HCl Immed Release 5 MG TABLET PO (13:32)
--- NOTE | 2022-04-09 14:24 | HO.POSTANES ---
Post Anesthesia Evaluation Post Anesthesia Evaluation Vital Signs: Vital Signs Temp Pulse Resp BP Pulse Ox 04/09/22 13:57 97.9 F 84 17 131/74 100 04/09/22 13:42 86 17 141/82 H 100 04/09/22 13:40 86 17 120/71 100 04/09/22 12:40 70 12 133/75 100 04/09/22 12:25 69 12 127/72 99 04/09/22 12:10 66 12 126/71 99 04/09/22 11:55 75 18 130/72 99 04/09/22 11:50 85 16 147/95 H 99 04/09/22 11:45 95 16 155/80 H 98 04/09/22 11:41 96 18 147/73 H 99 04/09/22 11:40 97 17 147/73 H 99 04/09/22 11:26 81 18 149/87 H 96 04/09/22 11:25 87 18 146/79 H 99 04/09/22 11:21 94 18 146/82 H 96 04/09/22 11:19 96 18 146/82 H 97 04/09/22 11:16 99 18 160/91 H 97 04/09/22 11:14 20 04/09/22 11:11 97.4 F 99 20 154/91 H 100 04/09/22 08:51 97.7 F 86 16 142/77 H 100 Anesthesia: General Mental Status: Awake Pain Control: Satisfactory Nausea/Vomiting: Mild (Pt vomited x 1 in DC, liquid. Offered po zofran, but pt declined because ride was waiting and she just wanted to go home and sleep . Instructed to return if intractable N/V.) Hydration: Adequate Anesthesia-Related Issues: No Anes. Related Issues
== END 2022-04-09 14:24 | disposition home or self-care (01) ==
LOC: HO.SSS 08:38
PROVIDERS: Nurse Practitioner; PCP Internal Medicine; Visit Provider Surgery
PROC: 0FT44ZZ Resection of Gallbladder, Percutaneous Endoscopic Approach (ICD-10-PCS; CPT 47562; principal; 2022-04-09 12:40)
DX: K80.10 Calculus of gallbladder with chronic cholecystitis without obstruction (principal); E66.01 Morbid (severe) obesity due to excess calories; Z68.41 Body mass index [BMI] 40.0-44.9, adult; Z79.899 Other long term (current) drug therapy
CPT/HCPCS: 47562; 81025; 88304; J1100; J1170; J2250; J2405; J2550; J3010

== ENCOUNTER 2022-04-14 20:57 | Emergency (ER) | payer OTHER, SELFPAY ==
[2022-04-14 21:32] VITALS: BP 147/71; PULSE 93; RESP 18; TEMP 37.4; O2SAT 100; BMI 43.4
== END 2022-04-15 00:14 | disposition left against medical advice (07) ==
LOC: HO.ED 04-15 00:08
PROVIDERS: Emergency Provider Emergency Medicine; PCP Internal Medicine
DX: R10.9 Unspecified abdominal pain (principal); Z98.890 Other specified postprocedural states
CPT/HCPCS: 99281

== ENCOUNTER → 2022-04-16 14:09 | Outpatient (BNVA) | payer OTHER, SELFPAY | PROVIDERS: PCP Internal Medicine; Referring Provider Internal Medicine; Visit Provider Surgery | DX: Z13.89 Encounter for screening for other disorder (principal) ==

== ENCOUNTER 2024-02-28 12:44 | Outpatient (AMB) | payer OTHER, SELFPAY ==
[2024-02-28 12:55] VITALS: BP 124/76; BMI 45.9
--- NOTE | 2024-02-28 12:55 | MHC.PC.OV ---
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 by: Self / Same As Patient Allergies No Known Allergies [No Known Allergies*] Allergy (Verified 02/28/24 13:12) Medication List - Last Reconciled 02/28/24 by Gloria Argueta MD albuterol sulfate 90 mcg/actuation 2 inhalations inhalation Q6H cetirizine 10 mg PO DAILY 90 days hydrocortisone 2.5% 1 appl topical TID PRN Tobacco use date assessed: 02/28/24 Dental Screening Dental Screen Date: 02/28/24 Did you have a dental visit in the last 12 months?: Yes Did you have a dental problem in the last 6 months where you did not have access to dental care?: No Was dental information given to patient?: Patient has dentist HPI HPI Comments History of Present Illness Details This is a 33-year-old female with morbid obesity that comes for her physical exam. She was referred to weight management last year but did not contact them. She wants a new referral for weight management. Her last Pap smear was 2018 and was normal and will be referred to OBGYN for another Pap smear. Denies any chest pain or shortness of breath. [facility] Medical History (Updated 02/28/24 @ 13:16 by Gloria Argueta MD) Wears contact lenses Gallstones Numbness and tingling in right hand Gestational diabetes Scalp cyst Miscarriage History of chicken pox Obesity Surgical History History of cholecystectomy Hx of removal of cyst History of tonsillectomy Family History Father High cholesterol CVD (cardiovascular disease) Mother HTN (hypertension) Maternal Grandmother Chronic mental illness ETOHism Maternal Aunt Asthma Paternal Aunt Diabetes mellitus Other Mental health disorder Social History Household Members: Children Both parents involved: Yes Housing: Apartment Are you a primary health careers instructor to a 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 other at home: Yes (3 month old child) Do you presently have visiting nurse or other home services: No Alcohol intake: former Patient Tobacco Use Status: Never used Tobacco e-Cigarette/Vaping Use: Never Used Second Hand Smoke Exposure: No Special jony needs: No Agree to transfusion: Yes service: No Current occupational status: employed Current occupational exposures/hazards: No Sexual orientation: Straight/Heterosexual Gender identity: Female Cognitive needs: No Hearing needs: No Vision needs: Yes (contacts) Female Reproductive History Menstrual Age of Menarche: 15 Questionnaire PHQ-9 Over the last 2 weeks, how often have you been bothered by any of the following problems? 1. Little interest or pleasure in doing things: not at all 2. Feeling down, depressed, or hopeless: not at all 3. Trouble falling or staying asleep, or sleeping too much: not at all 4. Feeling tired or having little energy: not at all 5. Poor appetite or overeating: not at all 6. Feeling bad about yourself - or that you are a failure or have let yourself or your family down: not at all 7. Trouble concentrating on things, such as reading the newspaper or watching television: not at all 8. Moving or speaking so slowly that other people could have noticed. Or the opposite - being so fidgety or restless that you have been moving around a lot more than usual: not at all 9. Thoughts that you would be better off or of hurting yourself in some way: not at all Total score: 0 Depression Screening Interpretation: Negative Depression Screening Done: Yes 21688 - PHQ-9 Billing: Yes Source: Developed by Drs. Sascha Araujo, Anjali Head, Maynor Malone and colleagues, with an educational letty from [employer]. Thrive Questionnaire Date Thrive assessed: 02/28/24 I am a: Patient What is your living situation today?: I have a steady place to live Within the past 12 months, did the food you bought not last and you didn't have the money to get more?: Never true Within the past 12 months, did you worry whether your food would run out before you got money to buy more?: Never true Do you have trouble paying for medicines?: No Do you have trouble getting transportation to medical appointments?: No Do you have trouble paying your heating and electricity bill?: No Do you have trouble taking care of your child, family member or friend?: No Do you have trouble with day-to-day activities such as bathing, preparing meals, shopping, managing finances, etc.?: No Are you currently unemployed and looking for a job?: No Are you interested in more education?: No Please select the resources that you would like help with: None Currently or been in a relationship where the following occur: no concerns reported THRIVE Score: 0 AUDIT C Alcohol Use Questionnaire (AUDIT-C) 1. How often do you have a drink containing alcohol?: Never Total Score: 0 ROBYN-7 AMB Questionnaire ROBYN-7 Date ROBYN - 7 assessed: 02/28/24 Feeling nervous, anxious, or on edge: 0 = Not at all Not being able to stop or control worryin = Not at all Worrying too much about different things: 0 = Not at all Trouble relaxin = Not at all Being so restless that it is hard to sit still: 0 = Not at all Becoming easily annoyed or irritable: 0 = Not at all Feeling afraid as if something awful might happen: 0 = Not at all Total ROBYN-7 score (0-4 normal; 5-9 mild; 10-14 moderate; 15-21 severe): 0 Source: Developed by Drs. Sascha Araujo, Anjali Head, Maynor Malone and colleagues, with an educational letty from [employer]. ROBYN-7 Assessment Billing ROBYN-7 Assessment Tool: ROBYN-7 Assessment 07278 Review of Systems Const All systems reviewed & are unremarkable except as noted in HPI and below Eyes Reports no additional complaints, Denies change in vision and Denies other visual disturbances Card Denies chest pain at rest, Denies chest pain with activity, Denies edema, Denies irregular heart rhythm, Denies claudication, Denies dyspnea, Denies dyspnea on exertion, Denies orthopnea, Denies paroxysmal nocturnal dyspnea and Denies slow heart rate Resp Denies cough, Denies dyspnea and Denies dyspnea on exertion GI Denies abdominal pain, Denies change in bowel habits, Denies excessive flatus, Denies nausea and Denies vomiting Denies urinary incontinence, Denies urinary hesitancy and Denies urinary urgency Physical exam (Primary Care) Vital Signs: Last Vital Signs BP 124/76 02/28/24 12:55 BMI result Body Mass Index 45.9 BMI Assessment/Plan discussion: High BMI High, discussed plan: lifestyle, weight reduction, dietary and physical activity Tobacco/Smoking Status: Tobacco use Status Tobacco use date assessed 02/28/24 02/28/24 12:58 Patient Tobacco Use Status Never used Tobacco 02/28/24 12:58 e-Cigarette/Vaping Use Never Used 02/28/24 12:58 PHQ-9: PHQ-9 Score PHQ-9: Total score 0 02/28/24 13:02 Depression Screening Interpretation: Negative Thrive Assessment: Date of Thrive Assessment Date Thrive assessed 02/28/24 02/28/24 13:02 Currently or been in a relationship where the following occur: no concerns reported Const Orientation/consciousness: patient oriented x3 HENMT Head: Yes normal to inspection, Yes normocephalic and Yes atraumatic Ears: external ears normal Eyes General: appearance normal, both eyes and all related structures Eyelids: Yes eyelids normal Conjunctivae: conjunctivae normal Neck Neck: Yes normal visual inspection and Yes supple Resp Effort & Inspection: normal respiratory effort Auscultation: clear to auscultation bilaterally Cardio Jugular venous distension: no JVD Rate: regular rate Rhythm: regular rhythm Heart sounds: S1 normal heart sound present and S2 normal heart sound present GI Inspection: Yes normal to inspection Palpation (GI): Soft to palpation and nontender Auscultation: normal bowel sounds Skin General skin exam: no rashes or lesions noted Neuro General: patient oriented x3 and no focal motor deficits Extrem General: Yes full ROM Psych Appearance: grossly normal Assessment and Plan Assessment & Plan (1) Physical exam: Comment: Needs eye and dental exams COVID JOAO's X 1 with another schedule coming up UTD with papa with [facility]. Has IUD placed 01/2022. Code(s): Z00.00 - Encounter for general adult medical examination without abnormal findings Plan: Repeat in a year. (2) Obesity, morbid, BMI 40.0-49.9: Code(s): E66.01 - Morbid (severe) obesity due to excess calories Plan: Referred to weight management. BMI goal is less than 30. Orders: Orders Thyroid Stimulating Hormone Today E66.01 - Morbid (severe) obesity due to excess calories Lipid Panel Today Z00.00 - Encounter for general adult medical examination without abnormal findings Comprehensive [place]. 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
== END 2024-02-28 13:23 | disposition home or self-care (01) ==
PROVIDERS: Visit Provider Internal Medicine
DX: Z00.00 Encounter for general adult medical examination without abnormal findings (principal); E66.01 Morbid (severe) obesity due to excess calories; Z68.42 Body mass index [BMI] 45.0-49.9, adult
CPT/HCPCS: 99395

== ENCOUNTER 2024-03-06 09:52 | Outpatient (REF) | payer OTHER, SELFPAY ==
[2024-03-06 10:04] LABS: MANUAL DIFF FLAG NO
[2024-03-06 11:14] LABS: Basophils Absolute Auto 0.1 X10*3/uL (0.0-0.2); Basophils Percent Auto 0.6 % (0-2); Eosinophils Absolute Auto 0.1 X10*3/uL (0.0-0.4); Eosinophils Percent Auto 1.6 % (0-4); Hematocrit 33.4 % (37.0-47.0); Hemoglobin 10.1 g/dl (12.0-16.0); Imm Gran Abs Auto 0.03 X10*3/uL (0.00-0.03); Imm Gran Pct Auto 0.4 % (0.0-0.4); Lymphocytes Absolute Auto 2.9 X10*3/uL (1.2-4.9); Lymphocytes Percent Auto 35.4 % (20-40); Mean Corpuscular HGB Conc 30.2 g/dl (31.0-35.0); Mean Corpuscular Hemoglobin 21.6 pg (27.0-33.0); Mean Corpuscular Volume 71.4 fL (80.0-98.0); Monocytes Absolute Auto 0.5 X10*3/uL (0.1-1.2); Monocytes Percent Auto 5.7 % (2-11); Neutrophils Absolute Auto 4.6 x10*3/uL (2.0-8.3); Neutrophils Percent Auto 56.3 % (45-73); Platelet Count 347 X10*3/uL (160-400); Red Blood Count 4.68 X10*6/uL (4.20-5.50); Red Cell Distribution Width 16.6 % (11.0-16.0); White Blood Count 8.1 X10*3/uL (4.8-10.8)
[2024-03-06 11:53] LABS: Alanine Aminotransferase 24 U/L (0-31); Albumin Level 4.1 g/dL (3.5-5.0); Alkaline Phosphatase 80 U/L (39-117); Anion Gap 12 (12-20); Aspartate Amino Transferase 18 U/L (5-31); Bilirubin Total 0.5 mg/dL (0.0-1.0); Blood Urea Nitrogen 7 mg/dL (9-16); Carbon Dioxide 23 mmol/L (22-29); Chloride 109 mmol/L (96-108); Cholesterol 186 mg/dL (<200); Estimated Glomerular Filt Rate > 60; Glucose Fasting 104 mg/dL (60-99); HDL Cholesterol 37 mg/dL (>40); LDL Cholesterol Calculated 126 mg/dL (<100); Potassium 3.8 mmol/L (3.3-5.1); Sodium 140 mmol/L (135-145); Total Protein 7.5 g/dL (6.5-8.0); Triglycerides 116 mg/dL (<150)
[2024-03-06 12:26] LABS: Thyroid Stimulating Hormone 2.38 uIU/mL (0.32-4.0)
== END 2024-03-06 09:53 | disposition home or self-care (01) ==
LOC: HO.LAB 09:52
PROVIDERS: PCP Internal Medicine; Visit Provider Internal Medicine
DX: Z00.00 Encounter for general adult medical examination without abnormal findings (principal); D64.9 Anemia, unspecified; E66.01 Morbid (severe) obesity due to excess calories
CPT/HCPCS: 36415; 80053; 80061; 84443; 85025

== ENCOUNTER 2024-03-28 16:59 | Outpatient (AMB) | payer OTHER, SELFPAY ==
--- NOTE | 2024-03-28 16:59 | A.OFFPC_ITS ---
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 Accompanied by: Self / Same As Patient Allergies No Known Allergies [No Known Allergies*] Allergy (Verified 03/28/24 17:09) Medication List - Last Reconciled 03/28/24 by Gloria Argueta MD albuterol sulfate 90 mcg/actuation 2 inhalations inhalation Q6H cetirizine 10 mg PO DAILY 90 days hydrocortisone 2.5% 1 appl topical TID PRN Tobacco use date assessed: 02/28/24 Dental Screening Dental Screen Date: 02/28/24 HPI HPI Comments History of Present Illness Details This is a 33-year-old female with iron-deficiency anemia morbid obesity that comes today complaining of dizziness without tinnitus and not associated with head position. Romberg sign negative. Will be referred to vestibular therapy and I did order meclizine which she is aware she can not take it with cetirizine. For her low hemoglobin ID 8 sent ferrous sulfate and patient was advised to take it with orange juice or any source of vitamin-C. She is morbidly obese with a BMI of 45.9 and was referred to weight management and is pending to be contact by them. No chest pain or shortness of breath. [facility] Medical History (Updated 03/28/24 @ 17:29 by Gloria Argueta MD) Wears contact lenses Gallstones Numbness and tingling in right hand Gestational diabetes Scalp cyst Miscarriage History of chicken pox Obesity Surgical History History of cholecystectomy Hx of removal of cyst History of tonsillectomy Family History Father High cholesterol CVD (cardiovascular disease) Mother HTN (hypertension) Maternal Grandmother Chronic mental illness ETOHism Maternal Aunt Asthma Paternal Aunt Diabetes mellitus Other Mental health disorder Social History Household Members: Children Both parents involved: Yes Housing: Apartment 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 a significant other at home: Yes (3 month old child) Do you presently have visiting nurse or other home services: No Alcohol intake: former Patient Tobacco Use Status: Never used Tobacco e-Cigarette/Vaping Use: Never Used Second Hand Smoke Exposure: No Special jony needs: No Agree to transfusion: Yes service: No Current occupational status: employed Current occupational exposures/hazards: No Sexual orientation: Straight/Heterosexual Gender identity: Female Cognitive needs: No Hearing needs: No Vision needs: Yes (contacts) Female Reproductive History Menstrual Age of Menarche: 15 Questionnaire Thrive Questionnaire Date Thrive assessed: 02/28/24 ROBYN-7 AMB Questionnaire ROBYN-7 Date ROBYN - 7 assessed: 02/28/24 Source: Developed by Drs. Sascha Araujo, Anjali Head, Maynor Malone and colleagues, with an educational letty from [employer]. Review of Systems Const All systems reviewed & are unremarkable except as noted in HPI and below Eyes Reports no additional complaints, Denies change in vision and Denies other visual disturbances ENT Reports dizziness Card Denies chest pain at rest, Denies chest pain with activity, Denies edema, Denies irregular heart rhythm, Denies claudication, Denies dyspnea, Denies dyspnea on exertion, Denies orthopnea, Denies paroxysmal nocturnal dyspnea and Denies slow heart rate Resp Denies cough, Denies dyspnea and Denies dyspnea on exertion GI Denies abdominal pain, Denies change in bowel habits, Denies excessive flatus, Denies nausea and Denies vomiting Denies urinary incontinence, Denies urinary hesitancy and Denies urinary urgency Neuro Reports dizziness Physical exam (Primary Care) Vital Signs: Last Vital Signs BP 130/64 03/28/24 17:00 BMI result Body Mass Index 45.9 Tobacco/Smoking Status: Tobacco use Status Tobacco use date assessed 02/28/24 03/28/24 17:05 Patient Tobacco Use Status Never used Tobacco 03/28/24 17:05 e-Cigarette/Vaping Use Never Used 03/28/24 17:05 Thrive Assessment: Date of Thrive Assessment Date Thrive assessed 02/28/24 03/28/24 17:05 Resp Effort & Inspection: normal respiratory effort Auscultation: clear to auscultation bilaterally Cardio Jugular venous distension: no JVD Rate: regular rate Rhythm: regular rhythm Heart sounds: S1 normal heart sound present and S2 normal heart sound present Extrem General: Yes full ROM Assessment and Plan Assessment & Plan (1) Iron (Fe) deficiency anemia: Code(s): D50.9 - Iron deficiency anemia, unspecified Qualifiers: Iron deficiency anemia type: chronic blood loss Qualified Code(s): D50.0 - Iron deficiency anemia secondary to blood loss (chronic) Plan: Start ferrous sulfate once a day with vitamin-C. (2) Dizziness: Code(s): R42 - Dizziness and giddiness Plan: Start meclizine as needed. Start vestibular therapy. (3) Obesity, morbid, BMI 40.0-49.9: Code(s): E66.01 - Morbid (severe) obesity due to excess calories Plan: Follow-up with weight management. BMI goal is less than 30. Orders: Orders PT Evaluation and Treatment Today R42 - Dizziness and giddiness Medications: New meclizine 25 mg PO TID PRN 21 tabs 0RF dizziness 7 days ferrous sulfate 325 mg PO DAILY 90 tabs 0RF 90 days D50.9 - Iron deficiency anemia, unspecified Coding Level of Care Code Est Pt Level 3 (09271) Diagnoses Iron deficiency anemia due to chronic blood loss D50.0 Iron deficiency anemia type: chronic blood loss Dizziness R42 Obesity, morbid, BMI 40.0-49.9 E66.01 Time Spent (min) 19
[2024-03-28 17:00] VITALS: BP 130/64; BMI 45.9
== END 2024-03-28 17:17 | disposition home or self-care (01) ==
PROVIDERS: PCP Internal Medicine; Visit Provider Internal Medicine
DX: D50.0 Iron deficiency anemia secondary to blood loss (chronic) (principal); E66.01 Morbid (severe) obesity due to excess calories; Z68.42 Body mass index [BMI] 45.0-49.9, adult; R42 Dizziness and giddiness
CPT/HCPCS: 99213

== ENCOUNTER 2024-05-15 13:10 | Outpatient (AMB) | payer OTHER, SELFPAY ==
--- NOTE | 2024-05-15 13:13 | A.OFFVIS_ITS ---
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 Complaining of heavy menstrual cycles associated with passage of blood clots and Hegar was on her face Last Pap/HPV was negative in 03/2019 [facility] Medical History Wears contact lenses Gallstones Numbness and tingling in right hand Gestational diabetes Scalp cyst Miscarriage History of chicken pox Obesity Surgical History History of cholecystectomy Hx of removal of cyst History of tonsillectomy Family History Father High cholesterol CVD (cardiovascular disease) Mother HTN (hypertension) Maternal Grandmother Chronic mental illness ETOHism Maternal Aunt Asthma Paternal Aunt Diabetes mellitus Other Mental health disorder Social History Household Members: Children Both parents involved: Yes Housing: Apartment Are you a primary care consultant to a significant other at home: Yes (3 month old child) Do you presently have visiting nurse or other home services: No Alcohol intake: former Patient Tobacco Use Status: Never used Tobacco e-Cigarette/Vaping Use: Never Used Second Hand Smoke Exposure: No Special jony needs: No Agree to transfusion: Yes service: No Current occupational status: employed Current occupational exposures/hazards: No Sexual orientation: Straight/Heterosexual Gender identity: Female Cognitive needs: No Hearing needs: No Vision needs: Yes (contacts) Female Reproductive History Menstrual Age of Menarche: 15 Date of last menstrual period: 05/09/24 Review of Systems Const All systems reviewed & are unremarkable except as noted in HPI and below Card Reports as per HPI Resp Reports as per HPI GI Reports as per HPI and Reports no additional complaints Reports as per HPI Physical Exam Vital Signs: Last Vital Signs BP 128/74 05/15/24 13:14 BMI result Body Mass Index 46.0 Const General: cooperative, healthy appearing and comfortable Chest Chest palpation & inspection: normal inspection of the chest and normal palpation of entire chest wall Breast/axilla inspection: normal inspection of the breasts and normal inspection of the axillae Breast/axilla palpation: normal palpation of the breasts, normal palpation of the axillae and no axillary lymphadenopathy Resp Effort & Inspection: normal respiratory effort Auscultation: clear to auscultation bilaterally Percussion: percussion normal Cardio Palpation: normal PMI Rate: regular rate Rhythm: regular rhythm Heart sounds: no murmurs and no rubs Peripheral pulses: Peripheral pulses 2+ throughout GI Inspection: Yes normal to inspection Palpation (GI): Soft to palpation, nontender, no guarding, not rigid and No hepatosplenomegaly present Percussion: Yes normal to percussion Auscultation: normal bowel sounds Rectal Exam - Female: deferred General: Yes bladder normal to palpation External Female Exam: No lesion Speculum Exam - Vagina: normal appearance of the vagina, normal palpation, normal vaginal discharge and not erythematous Speculum Exam - Cervix: normal appearance of the cervix, normal palpation and Other cervical findings present (IUD thread seen) Bimanual exam- vagina & uterus: normal bimanual exam, normal palpation, uterine size normal, bladder normal to palpation, consistency normal and normal palpation Bimanual Exam- Adnexa, other: normal adnexae, no masses and no tenderness Assessment & Plan Assessment & Plan (1) Well woman exam: Code(s): Z01.419 - Encounter for gynecological examination (general) (routine) without abnormal findings Category: Medical Plan: Cotesting done. Counseled the patient about the recommended dietary allowance of 1000 mg of Calcium & 600 IU of vitamin D. The patient was instructed to perform monthly self-breast exams and to schedule an annual exam in a year; All questions answered and the patient verbalized understanding. Instructed the patient to schedule annual exam in a year (2) Abnormal uterine bleeding (AUB): Comment: With hirsutism With copper IUD Code(s): N93.9 - Abnormal uterine and vaginal bleeding, unspecified Category: Medical Plan: Co testing done, CBC, TSH, prolactin, HCG, 17 hydroxyprogesterone, total and free testosterone, and pelvic ultrasound ordered. Discussed with the patient the different causes of abnormal bleeding including thyroid disorders, uterine and ovarian pathology, endometrial hyperplasia, carcinoma and other potential causes. Discussed with the patient the work up including CBC (to r/o anemia), TSH, prolactin, pelvic Ultrasound, endometrial biopsy to r/o endometrial pathology. All questions answered and the patient verbalized understanding. Instructed the patient to schedule an appointment for an endometrial biopsy in 2 weeks. Orders: Orders US pelvic and transvaginal Today N93.9 - Abnormal uterine and vaginal bleeding, unspecified TSH reflex Free T4 Today N93.9 - Abnormal uterine and vaginal bleeding, unspecified HCG Quantitative Today N93.9 - Abnormal uterine and vaginal bleeding, unspecified Testosterone, Free/Total Today L68.0 - Hirsutism Prolactin Today N93.9 - Abnormal uterine and vaginal bleeding, unspecified Complete Blood Count no Diff Today N93.9 - Abnormal uterine and vaginal bleeding, unspecified 17 Hydroxyprogesterone Today L68.0 - Hirsutism Coding Level of Care Code Est Pt Prev Care 18-39y(07854) Diagnoses Well woman exam Z01.419 Abnormal uterine bleeding (AUB) N93.9
[2024-05-15 13:14] VITALS: BP 128/74; BMI 46.0
== END 2024-05-15 14:07 | disposition home or self-care (01) ==
LOC: HO.HWS 13:10
PROVIDERS: PCP Internal Medicine; Visit Provider Obstetrics & Gynecology
DX: Z01.419 Encounter for gynecological examination (general) (routine) without abnormal findings (principal); N93.9 Abnormal uterine and vaginal bleeding, unspecified
CPT/HCPCS: 99395

== ENCOUNTER 2024-05-15 13:10 | Outpatient (REF) | payer OTHER, SELFPAY ==
[2024-05-16 08:50] LABS: Bacterial Vaginosis PCR NEGATIVE (Negative); Candida Group PCR NOT DETECTED (Not Detect); Candida glab krusei PCR NOT DETECTED (Not Detect); Trichomonas vaginalis PCR NOT DETECTED (Not Detect)
[2024-05-31 08:16] LABS: HPV mRNA E6/E7 rflx NOT DETECTED
== END 2024-05-15 13:11 | disposition home or self-care (01) ==
LOC: HO.LNP 13:10
PROVIDERS: PCP Internal Medicine; Visit Provider Obstetrics & Gynecology
DX: Z01.419 Encounter for gynecological examination (general) (routine) without abnormal findings (principal); Z11.51 Encounter for screening for human papillomavirus (HPV); N93.9 Abnormal uterine and vaginal bleeding, unspecified
CPT/HCPCS: 0352U; 87624; 87625; 88175; 99395

== ENCOUNTER 2024-05-15 14:09 | Outpatient (REF) | payer OTHER, SELFPAY ==
[2024-05-15 14:53] LABS: Hematocrit 34.3 % (37.0-47.0); Hemoglobin 10.6 g/dl (12.0-16.0); Mean Corpuscular HGB Conc 30.9 g/dl (31.0-35.0); Mean Corpuscular Hemoglobin 21.8 pg (27.0-33.0); Mean Corpuscular Volume 70.4 fL (80.0-98.0); Mean Platelet Volume 10.8 fL (9.4-12.3); Platelet Count 321 X10*3/uL (160-400); Red Blood Count 4.87 X10*6/uL (4.20-5.50); Red Cell Distribution Width 17.4 % (11.0-16.0); White Blood Count 9.8 X10*3/uL (4.8-10.8)
[2024-05-15 15:37] LABS: HCG Quantitative < 2 mIU/mL
[2024-05-16 02:28] LABS: CT PCR NOT DETECTED (Not Detect.); NG PCR NOT DETECTED (Not Detect.)
[2024-05-16 10:39] LABS: Prolactin 6.8 ng/mL
[2024-05-20 14:39] LABS: Testosterone, Total 17 ng/dL (2-45)
== END 2024-05-15 14:10 | disposition home or self-care (01) ==
LOC: HO.LAB 14:09
PROVIDERS: PCP Internal Medicine; Visit Provider Obstetrics & Gynecology
DX: L68.0 Hirsutism (principal); N93.9 Abnormal uterine and vaginal bleeding, unspecified
CPT/HCPCS: 83498; 84146; 84402; 84403; 84443; 84702; 85027; 87491; 87591

== ENCOUNTER 2024-05-21 14:13 | Outpatient (REF) | payer OTHER, SELFPAY ==
--- NOTE | ~2024-05-21 | US_ITS ---
EXAMINATION: US PELVIS CLINICAL INFORMATION: Abnormal bleeding, last menstrual period 1.5 weeks ago. COMPARISON: None available. TECHNIQUE: Ultrasound of the pelvis is performed using both transabdominal and transvaginal transducers along with Doppler. Transvaginal imaging is performed due to inadequate visualization transabdominally. Limited visualization due to bowel gas and body habitus. FINDINGS: The uterus is anteverted and measures 10.2 x 5.0 x 5.[address] within the endometrial cavity. Endometrium cannot be evaluated as it is obscured by the IUD. No significant free fluid. Right ovary measures 2.4 x 2.7 x 1.7 cm, volume 5.8 mL and left ovary 2.3 x 2.1 x 1.9 cm, volume 4.8 mL. Bilateral ovaries are unremarkable, although visualization is limited due to bowel gas and body habitus. US/US pelvic and transvaginal IMPRESSION: IUD in place within the endometrial cavity. Limited visualization due to bowel gas and body habitus.
== END 2024-05-21 14:14 | disposition home or self-care (01) ==
LOC: HO.US 14:13
PROVIDERS: PCP Internal Medicine; Visit Provider Obstetrics & Gynecology
DX: N93.9 Abnormal uterine and vaginal bleeding, unspecified (principal)
CPT/HCPCS: 76830; 76856

== ENCOUNTER 2024-06-08 12:55 | Outpatient (AMB) | payer OTHER, SELFPAY ==
--- NOTE | 2024-06-08 12:58 | A.OFFVIS_ITS ---
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 She heard about our program from her PCP. Her goal is to lose weight and achieve a healthy lifestyle. She reports first being concerned about her weight for the last 10 years, highest weight to date was 262. Current weight is 258.2 pounds with a BMI of 45.1. She has tried multiple methods of weight loss including fad diets without permanent results. She lives with her kids. 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 She wakes at:?7 am, and goes to bed at?MN. Dinner is at 6 pm. Breakfast: skip AM snack: cake Lunch: sandwich, fast food PM snack: chocolate, candy Dinner: rice beans, chicken, pasta After dinner: snacks, ice cream Other snacks: chips Liquids: 64 oz water, 48-60 oz coke/sprite/pepsi Alcohol/marijuana/tobacco intake: rare etoh, no cannabis, no tobacco Exercise: none, Previously PF, no home equipment GERD score: 4 RAF score: 0 ESS score: 2 QOL score: 42 PFSH Medical History Wears contact lenses Gallstones Numbness and tingling in right hand Gestational diabetes Scalp cyst Miscarriage History of chicken pox Obesity Surgical History History of cholecystectomy Hx of removal of cyst History of tonsillectomy Family History Father High cholesterol CVD (cardiovascular disease) Mother HTN (hypertension) Maternal Grandmother Chronic mental illness ETOHism Maternal Aunt Asthma Paternal Aunt Diabetes mellitus Other Mental health disorder Social History Household Members: Children Both parents involved: Yes Housing: Apartment Are you a primary campground caretaker to a significant other at home: Yes (3 month old child) Do you presently have visiting nurse or other home services: No Alcohol intake: former Patient Tobacco Use Status: Never used Tobacco e-Cigarette/Vaping Use: Never Used Second Hand Smoke Exposure: No Special jony needs: No Agree to transfusion: Yes service: No Current occupational status: employed Current occupational exposures/hazards: No Sexual orientation: Straight/Heterosexual Gender identity: Female Cognitive needs: No Hearing needs: No Vision needs: Yes (contacts) Female Reproductive History Menstrual Age of Menarche: 15 Physical Exam Vital Signs: Last Vital Signs Temp 97.6 F 06/08/24 13:20 Pulse 74 06/08/24 13:20 BP 125/57 L 06/08/24 13:20 Pulse Ox 98 06/08/24 13:20 Oxygen Delivery Method Room Air 06/08/24 13:20 BMI result Body Mass Index 45.0 Const General: cooperative, healthy appearing and no acute distress Orientation/consciousness: patient oriented x3 HEENT Head: Yes normal to inspection Ears: hearing grossly normal bilaterally General nose exam: Normal external nose present Face and sinus: Yes normal facial exam Eyes General: appearance normal, both eyes and all related structures Resp Effort & Inspection: normal respiratory effort Auscultation: clear to auscultation bilaterally Cardio Rate: regular rate Rhythm: regular rhythm Heart sounds: S1 normal heart sound present and S2 normal heart sound present GI Inspection: Yes normal to inspection, No distended and Yes obesity Palpation (GI): Soft to palpation, nontender and no guarding Auscultation: normal bowel sounds Skin General skin exam: no rashes or lesions noted Neuro General: patient oriented x3 Extrem General: No edema Psych Appearance: grossly normal Mental Status: mental status grossly normal Speech and movement: Normal speech and movement present Affect: normal affect Attitude: cooperative Assessment & Plan Assessment & Plan (1) Morbid obesity: Code(s): E66.01 - Morbid (severe) obesity due to excess calories Category: Medical Plan: This is a?33 yo female who will start our SWL program to prepare for bariatric surgery.? Blood work, CXR, ECG, Abd US and UGI have been ordered. She is being scheduled for initial consultations. She will start SWL classes and watch the first three videos before her next appointment. 1. You have been given a paper with a link to our software [employer] ([employer]) to generate an individualized nutritional and exercise plan specific for you. Please send me a screenshot of the plans you will generate Meal to include lean meat (beef, fish, pork, turkey, chicken), or sri lankan yogurt, or egg whites, or beans with a salad with olive oil and fruits (berries, pears, apples, kiwi). Avoid salt, breads, potatoes, rice, pasta, desserts. 2. If you choose shakes, each shake would be drunk slowly, like coffee over a period of 2 hours. 3. If you choose bars, cut each bar in 4 pieces and eat each piece in 30min to make each bar last 2 hours. 4. I emphasized the importance of measuring accurately the food portion and measure it when serving the food on a plate 5. The meal portions include a specific number of forks of meat (protein) and salad. You always eat the meat portion but you can replace up to half of salad/vegetables portion with rice, potatoes or pasta, or a fruit ?if you like. The less you do it the better weight loss will be. 6. One full-size fork is what it can be scooped on the fork without falling aside and not what can be bit with the fork. Use regular forks like those you find in a typical restaurant. 7.? Please send me weight measurements from your body composition scale as soon as possible and then once a week. Always include your diet and exercise plan. The best time to weigh yourself is first thing in the morning after going to the bathroom. 8. The best choice for exercise would be treadmill, stationary bike or elliptical. Please joined [employer] [facility] gym near your home. 9.?Goal is to lose at least 1.5-2lbs per week, and about 10% before surgery, which is about 26 pounds 10. Please follow the diet plan exactly without any change. If you don't like something about the plan or you feel hungry you need to communicate with me so I can help you revise the plan. My cell phone number to communicate with me by text is [phone] Patient is morbidly obese and is not considered stable at this time.?I spent a total of 70 minutes reviewing/updating records, examining the patient and counseling the patient on weight management as detailed above. Orders: Orders Hemoglobin A1c Today D50.0 - Iron deficiency anemia secondary to blood loss (chronic), E66.01 - Morbid (severe) obesity due to excess calories Lipid Panel Today D50.0 - Iron deficiency anemia secondary to blood loss (chronic), E66.01 - Morbid (severe) obesity due to excess calories Comprehensive Met. Panel Today D50.0 - Iron deficiency anemia secondary to blood loss (chronic), E66.01 - Morbid (severe) obesity due to excess calories Vitamin B12 and Folate Today D50.0 - Iron deficiency anemia secondary to blood loss (chronic), E66.01 - Morbid (severe) obesity due to excess calories TSH reflex Free T4 Today D50.0 - Iron deficiency anemia secondary to blood loss (chronic), E66.01 - Morbid (severe) obesity due to excess calories Vitamin D 25-OH Total Today D50.0 - Iron deficiency anemia secondary to blood loss (chronic), E66.01 - Morbid (severe) obesity due to excess calories US abdomen comp w elastography Today D50.0 - Iron deficiency anemia secondary to blood loss (chronic), E66.01 - Morbid (severe) obesity due to excess calories ECG 12 lead EKG Today D50.0 - Iron deficiency anemia secondary to blood loss (chronic), E66.01 - Morbid (severe) obesity due to excess calories FL upper GI w air Today D50.0 - Iron deficiency anemia secondary to blood loss (chronic), E66.01 - Morbid (severe) obesity due to excess calories Insulin Today D50.0 - Iron deficiency anemia secondary to blood loss (chronic), E66.01 - Morbid (severe) obesity due to excess calories Complete Blood Count Auto Diff Today D50.0 - Iron deficiency anemia secondary to blood loss (chronic), E66.01 - Morbid (severe) obesity due to excess calories IRON PROFILE Today D50.0 - Iron deficiency anemia secondary to blood loss (chronic), E66.01 - Morbid (severe) obesity due to excess calories Zinc Today D50.0 - Iron deficiency anemia secondary to blood loss (chronic), E66.01 - Morbid (severe) obesity due to excess calories C Reactive Protein Today D50.0 - Iron deficiency anemia secondary to blood loss (chronic), E66.01 - Morbid (severe) obesity due to excess calories Vitamin B1 Today D50.0 - Iron deficiency anemia secondary to blood loss (chronic), E66.01 - Morbid (severe) obesity due to excess calories Vitamin A Today D50.0 - Iron deficiency anemia secondary to blood loss (chronic), E66.01 - Morbid (severe) obesity due to excess calories Ferritin Today D50.0 - Iron deficiency anemia secondary to blood loss (chronic), E66.01 - Morbid (severe) obesity due to excess calories XR chest 2V Today D50.0 - Iron deficiency anemia secondary to blood loss (chronic), E66.01 - Morbid (severe) obesity due to excess calories Referrals Behavioral Health Referral D50.0 - Iron deficiency anemia secondary to blood loss (chronic), E66.01 - Morbid (severe) obesity due to excess calories
[2024-06-08 13:20] VITALS: BP 125/57; PULSE 74; TEMP 36.4; O2SAT 98; BMI 45.0
== END 2024-06-08 13:50 | disposition home or self-care (01) ==
PROVIDERS: PCP Internal Medicine; Visit Provider Physician Assistant Surgical
DX: E66.01 Morbid (severe) obesity due to excess calories (principal); Z68.42 Body mass index [BMI] 45.0-49.9, adult
CPT/HCPCS: 99205

== ENCOUNTER → 2024-06-08 12:55 | Outpatient (BNVA) | payer OTHER, SELFPAY | PROVIDERS: PCP Internal Medicine; Visit Provider Physician Assistant Surgical | DX: E66.01 Morbid (severe) obesity due to excess calories (principal); Z68.42 Body mass index [BMI] 45.0-49.9, adult | CPT/HCPCS: 99202 ==

== ENCOUNTER 2024-06-18 12:16 | Outpatient (AMB) | payer OTHER, SELFPAY ==
[2024-06-18 12:27] VITALS: BMI 45.0
--- NOTE | 2024-06-18 12:27 | MHC.OFFVIS ---
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: Sound Equipment Mechanic Present (Linh Baker MAYCOL) Accompanied by: Self / Same As Patient Allergies No Known Allergies [No Known Allergies*] Allergy (Verified 06/18/24 12:30) Is last menstrual period known: Yes Last menstrual period: 06/13/24 HPI Comments Details: Presenting for EMB [facility] Medical History Wears contact lenses Gallstones Numbness and tingling in right hand Gestational diabetes Scalp cyst Miscarriage History of chicken pox Obesity Surgical History History of cholecystectomy Hx of removal of cyst History of tonsillectomy Family History Father High cholesterol CVD (cardiovascular disease) Mother HTN (hypertension) Maternal Grandmother Chronic mental illness ETOHism Maternal Aunt Asthma Paternal Aunt Diabetes mellitus Other Mental health disorder Social History Household Members: Children Both parents involved: Yes Housing: Apartment Are you a primary infant caregiver to a significant other at home: Yes (3 month old child) Do you presently have visiting nurse or other home services: No Alcohol intake: former Patient Tobacco Use Status: Never used Tobacco e-Cigarette/Vaping Use: Never Used Second Hand Smoke Exposure: No Special jony needs: No Agree to transfusion: Yes service: No Current occupational status: employed Current occupational exposures/hazards: No Sexual orientation: Straight/Heterosexual Gender identity: Female Cognitive needs: No Hearing needs: No Vision needs: Yes (contacts) Female Reproductive History Menstrual Age of Menarche: 15 Date of last menstrual period: 06/13/24 Physical Exam Vital Signs: BMI result Body Mass Index 45.0 Office Procedures Endometrial Biopsy Details: The patient was counseled regarding the indication and benefits of endometrial sampling to rule out endometrial pathology including not limited to endometrial hyperplasia or endometrial cancer and others; The alternatives (Either do nothing vs. hysteroscopy D&C) & the risks were discussed with the patient including but not limited: pain, uterine perforation, bleeding, infection, possible injury to bladder, bowel, ureter, possible need for blood transfusion with all its possible risks. The patient verbalized understanding all questions answered and signed consent. Urine test done in the office was negative The patient was placed into the dorsal lithotomy position; a speculum was inserted in the vagina. Using aseptic technique for the procedure, the cervix was cleansed with Betadine. The anterior lip of the cervix was grasped with a single tooth tenaculum. The uterus was sounded to 7 cm with a 4 mm Pipelle was used. Tissues samples were obtained and placed in formalin, in a patient labeled container and sent to the pathology department. At the end of the procedure, there was minimal bleeding noted The patient tolerated the procedure well and was discharged in good condition with the following instructions: Nothing in the vagina until the bleeding stops. No sex until the bleeding stops, to call if any of the following occurs: fever (>100.4), flu-like symptoms, abdominal pain, heavy bleeding, four smelling vaginal discharge. The patient was instructed to schedule a Follow up appointment in 2 weeks to discuss pathology results of the biopsy and treatment options. This note was generated with a voice recognition program. Some errors may have been overlooked during the review of this note. Sometimes these errors may affect the content or meaning of a given sentence. [id number] Biopsy Assessment & Plan Assessment & Plan (1) Abnormal uterine bleeding (AUB): Comment: With hirsutism With copper IUD Code(s): N93.9 - Abnormal uterine and vaginal bleeding, unspecified Category: Medical Plan: EMB done, see procedure Orders: Orders AMB Endometrial Biopsy Today N93.9 - Abnormal uterine and vaginal bleeding, unspecified Coding Level of Care Code Procedure Only Diagnoses Abnormal uterine bleeding (AUB) N93.9 CPT Codes Endometrial Biopsy - CPT: 40792-[id number] Biopsy ([id number])
== END 2024-06-18 14:13 | disposition home or self-care (01) ==
LOC: HO.HWS 12:16
PROVIDERS: PCP Internal Medicine; Visit Provider Obstetrics & Gynecology
DX: N93.9 Abnormal uterine and vaginal bleeding, unspecified (principal); Z32.02 Encounter for pregnancy test, result negative
CPT/HCPCS: 58100

== ENCOUNTER 2024-06-18 12:16 | Outpatient (REF) | payer OTHER, SELFPAY | END 2024-06-18 12:17 | disposition home or self-care (01) | LOC: HO.LNP 12:16 | PROVIDERS: PCP Internal Medicine; Visit Provider Obstetrics & Gynecology | DX: N93.9 Abnormal uterine and vaginal bleeding, unspecified (principal) | CPT/HCPCS: 58100; 81025; 88305 ==

== ENCOUNTER 2024-06-19 10:47 | Outpatient (REF) | payer OTHER, SELFPAY ==
--- NOTE | ~2024-06-19 | XR_ITS ---
EXAMINATION: XR CHEST CLINICAL INFORMATION: Obesity due to excess calories. E66.01 COMPARISON: None available. TECHNIQUE: 2 views of the chest were obtained. FINDINGS: No significant abnormality is noted involving the heart, lungs, mediastinum, bony thorax or soft tissues. XR/XR chest 2V IMPRESSION: Unremarkable examination. Electronically signed by: Arvin Lopez MD 07/12/2024 07:46 PM EDT RP
--- NOTE | ~2024-06-19 | US_ITS ---
EXAMINATION: US COMPLETE ABDOMEN WITH LIVER ELASTOGRAPHY CLINICAL INFORMATION: Morbid obesity. COMPARISON: None available. TECHNIQUE: Real-time imaging of the abdominal viscera. Noninvasive ultrasound liver fibrosis assessment is performed using Reyes ElastPQ point quantification shear wave elastography (pSWE) with a C5-2 MHz transducer. Multiple elastography samples are obtained. FINDINGS: PANCREAS: Normal. The visualized pancreatic head and body are normal in appearance. The remainder of the pancreas is obscured from visualization by the overlying bowel gas. ABDOMINAL AORTA: The proximal, middle, and distal aortic segments are normal in caliber. INFERIOR VENA CAVA: Visualized portions are normal. LIVER: The liver demonstrates normal size, contour and increased echogenicity. No focal lesion or intrahepatic biliary duct dilatation. The right lobe measures 14.7 cm in length. The left lobe measures 11.6 cm in length. Portal flow is towards the liver (hepatopetal). Shear wave liver elastography median stiffness is 1.57 m/s (reference: normal median stiffness is 1.3 m/s or less). IQR/median stiffness to assess sampling precision is 0.06 (reference: good quality data set is IQR/median stiffness of 0.15 or less). GALLBLADDER: Normal. The gallbladder is physiologically distended without evidence of stones, sludge, polyps, wall thickening or pericholecystic fluid. COMMON BILE DUCT: Normal in caliber measuring 0.4 cm in diameter. RIGHT KIDNEY: Normal. No hydronephrosis. No renal calculi or focal parenchymal lesions. The kidney measures 11.8 cm in maximum dimension. LEFT KIDNEY: Normal. No hydronephrosis. No renal calculi or focal parenchymal lesions. The kidney measures 11.1 cm in maximum dimension. SPLEEN: Normal. The spleen measures 11.8 cm in maximum dimension. FREE FLUID: None. US/US abdomen comp w elastography IMPRESSION: 1. There is generalized increase in hepatic echotexture, consistent with fatty infiltration or hepatocellular disease. Please correlate clinically. No focal hepatic mass or intrahepatic biliary dilatation is seen. 2. Liver elastography: In the absence of other known clinical signs, measurements rule out compensated advanced chronic liver disease. If there are known clinical signs, further testing may be needed for confirmation. REFERENCE: Society of Radiologists in Ultrasound Liver Stiffness Thresholds (2020): LIVER STIFFNESS THRESHOLDS: *Liver Stiffness equal or less than 1.3 m/s: High probability of being normal. *Liver Stiffness less than 1.7 m/s: In the absence of other known clinical signs, rules out compensated advanced chronic liver disease. *Liver Stiffness 1.7-2.1 m/s: Suggestive of compensated advanced chronic liver disease but need further test for confirmation. *Liver Stiffness over 2.1 m/s: Rules in compensated advanced chronic liver disease. *Liver Stiffness over 2.4 m/s: Suggestive of clinically significant portal hypertension. QUALITY OF DATA SET: *IQR/Median value equal or less than 0.15 implies a quality data set. *IQR/Median value over 0.15 implies a poor quality data set. SIGNIFICANT CHANGE FROM PRIOR EXAM: Significant change if liver stiffness measurement is 10% or greater from prior exam. OTHER CONSIDERATIONS: The stage of liver fibrosis may be overestimated in the setting of acute hepatitis, liver inflammation, elevated liver function tests, hepatic vascular congestion, obstructive cholestasis, non-fasting state, and infiltrative diseases such as amyloidosis and lymphoma. In some patients with NAFLD, the liver stiffness thresholds for compensated advanced chronic liver disease may be lower. In causes other than viral hepatitis and NAFLD, liver stiffness thresholds are not well established. Electronically signed by: Alfonso Gore MD 07/09/2024 01:22 PM EDT
--- NOTE | 2024-06-19 11:28 | ECG_ITS ---
Test Reason : e66.01 Blood Pressure : / mmHG Vent. Rate : 065 BPM Atrial Rate : 065 BPM P-R Int : 172 ms QRS Dur : 106 ms QT Int : 406 ms P-R-T Axes : 030 023 013 degrees QTc Int : 422 ms Normal sinus rhythm Incomplete right bundle branch block Borderline ECG When compared with ECG of 28-JAN-2022 18:24, No significant change was found Referred By: Ankit Meraz Electronically Signed By:MARLYN PARDO MD
[2024-06-19 11:34] LABS: MANUAL DIFF FLAG NO
[2024-06-19 11:42] LABS: Basophils Percent Auto 0.4 % (0-2); Eosinophils Absolute Auto 0.1 X10*3/uL (0.0-0.4); Eosinophils Percent Auto 1.1 % (0-4); Hematocrit 31.2 % (37.0-47.0); Hemoglobin 9.8 g/dl (12.0-16.0); Imm Gran Abs Auto 0.04 X10*3/uL (0.00-0.03); Imm Gran Pct Auto 0.6 % (0.0-0.4); Lymphocytes Absolute Auto 2.7 X10*3/uL (1.2-4.9); Lymphocytes Percent Auto 37.8 % (20-40); Mean Corpuscular HGB Conc 31.4 g/dl (31.0-35.0); Mean Corpuscular Hemoglobin 22.2 pg (27.0-33.0); Mean Corpuscular Volume 70.7 fL (80.0-98.0); Mean Platelet Volume 10.6 fL (9.4-12.3); Monocytes Absolute Auto 0.4 X10*3/uL (0.1-1.2); Monocytes Percent Auto 6.2 % (2-11); Neutrophils Absolute Auto 3.8 x10*3/uL (2.0-8.3); Neutrophils Percent Auto 53.9 % (45-73); Platelet Count 289 X10*3/uL (160-400); Red Blood Count 4.41 X10*6/uL (4.20-5.50); Red Cell Distribution Width 17.8 % (11.0-16.0); White Blood Count 7.1 X10*3/uL (4.8-10.8)
[2024-06-19 11:58] LABS: Estimated Average Glucose 111 mg/dL; Hemoglobin A1c % 5.5 % (<6.0)
[2024-06-19 12:20] LABS: Alanine Aminotransferase 38 U/L (0-31); Albumin Level 4.1 g/dL (3.5-5.0); Alkaline Phosphatase 66 U/L (39-117); Anion Gap 11 (12-20); Aspartate Amino Transferase 27 U/L (5-31); Bilirubin Total 0.5 mg/dL (0.0-1.0); Blood Urea Nitrogen 7 mg/dL (9-16); C Reactive Protein 1.08 mg/dL (< or = 0.50); Calcium 9.1 mg/dL (8.4-10.2); Carbon Dioxide 27 mmol/L (22-29); Chloride 108 mmol/L (96-108); Cholesterol 121 mg/dL (<200); Estimated Glomerular Filt Rate > 60; Glucose Random 93 mg/dL (60-115); HDL Cholesterol 26 mg/dL (>40); Iron 23 mcg/dL (30-160); LDL Cholesterol Calculated 79 mg/dL (<100); Percent Iron Saturation 7 % (15-50); Potassium 3.8 mmol/L (3.3-5.1); Sodium 142 mmol/L (135-145); Total Iron Binding Capacity 323 mcg/dL (228-428); Total Protein 7.4 g/dL (6.5-8.0); Triglycerides 81 mg/dL (<150); Unsaturated Iron Binding 300 ug/dL
[2024-06-19 12:30] LABS: Ferritin 20 ng/mL (10-122); Insulin 15 uU/mL (2-29); TSH reflex Free T4 1.35 uIU/mL (0.32-4.0); Vitamin D 25-OH Total 13.6 ng/mL (>30)
[2024-06-19 12:42] LABS: Folate 10.9 ng/mL (> or = 4.0); Vitamin B12 405 pg/mL (200-900)
[2024-06-22 02:59] LABS: Zinc 76 mcg/dL (60-130)
[2024-06-23 16:29] LABS: Vitamin A 26 mcg/dL (38-98)
[2024-06-25 14:39] LABS: Vitamin B1 32 nmol/L (8-30)
== END 2024-06-19 10:48 | disposition home or self-care (01) ==
LOC: HO.US 10:47
PROVIDERS: PCP Internal Medicine; Visit Provider Physician Assistant Surgical
DX: E66.1 Drug-induced obesity (principal); D50.0 Iron deficiency anemia secondary to blood loss (chronic)
CPT/HCPCS: 36415; 71046; 76700; 76981; 80053; 80061; 82306; 82607; 82728; 82746; 83036; 83525; 83540; 84425; 84443; 84590; 84630; 85025; 86140; 93005

== ENCOUNTER → 2024-06-19 11:28 | Outpatient (BNV) | payer OTHER, SELFPAY | PROVIDERS: PCP Internal Medicine; Visit Provider Internal Medicine Cardiovascular Disease | DX: R94.31 Abnormal electrocardiogram [ECG] [EKG] (principal); E66.01 Morbid (severe) obesity due to excess calories; I45.19 Other right bundle-branch block | CPT/HCPCS: 93010 ==

== ENCOUNTER 2024-06-26 09:49 | Outpatient (RCR) | payer OTHER, SELFPAY ==
[2024-06-26 09:56] VITALS: BP 122/78; PULSE 77; O2SAT 98
--- NOTE | 2024-06-26 10:43 | MHC.PT.EP ---
[facility] [place] [facility] [place] [facility] [place] [facility] [address] Minnie Joseph [address] [phone] F: [phone] F: [phone] F: [phone] F: [phone] Physical Therapy Plan of Care Date of Evaluation: 06/26/24 Date of Surgery: Diagnosis: This is a 33 yo female presenting to skilled PT with a script for dizziness and giddiness. Assessment: This is a 33 yo female presenting to skilled PT with a script for dizziness and giddiness. Patient reporting ongoing dizziness now for a few months. She does not report any new incidents. Patient reports being lightheaded, nauseous at times, GOOD and fatigue. Her symptoms are once in blue mcclain. Her last symptoms were noted about a month ago when she stood up too fast. Her symptoms lasted about 5 mins. Of note, she was also just diagnosed with anemia. Examination shows + oculomotor tests with saccades, (-) VBI B, and normal cervical AROM. She was (-) for BPPV with johanna-hallpike B and roll test B. Balance was normal with DGI and Trisha SOPT. S/S are not consistent with BPPV at this time. I eduacted her that anemia can cause symptoms of dizzness and to continue to follow up with her PCP in regards to this. I also educated her that if her symptoms are to change and she would like to be reassessed she can return to PT 2x/wk for 4wks to address impairments, implement HEP and optimize functional mobility. Frequency and Duration: The patient will be seen NA at this time Short Term Goals: NA at this time Halfway Goals: reassess canals as needed Treatment Plan: Modalities to reduce pain, spasms and effusion. Manual therapy to restore motion and function. Therapeutic exercise to improve strength and flexibility. Neuromuscular re-education for posture and balance. Therapeutic activities to return to functional activities of daily living. Electronically signed by: Abbie Buckley PT Please sign and return to therapist. Thank you for your referral.
--- NOTE | 2024-07-26 08:59 | MHC.PT.DC ---
[facility] [place] Office [place] Office [place] Office [address] Minnie Joseph [address] [phone] F: [phone] F: [phone] F: [phone] F: [phone] Physical Therapy Discharge Report Diagnosis: This is a 33 yo female presenting to skilled PT with a script for dizziness and giddiness. Date of Surgery: Date of Evaluation: 06/26/24 Date of Discharge: 07/26/24 Treatments to Date: 1 Cancellations to Date: 0 No Shows to Date: 0 Discharge Status: Recommend MD Follow-up Discharge Summary: This is a 33 yo female presenting to skilled PT with a script for dizziness and giddiness. Patient reporting ongoing dizziness now for a few months. She does not report any new incidents. Patient reports being lightheaded, nauseous at times, GOOD and fatigue. Her symptoms are once in blue mcclain. Her last symptoms were noted about a month ago when she stood up too fast. Her symptoms lasted about 5 mins. Of note, she was also just diagnosed with anemia. Examination shows + oculomotor tests with saccades, (-) VBI B, and normal cervical AROM. She was (-) for BPPV with johanna-hallpike B and roll test B. Balance was normal with DGI and Trisha SOPT. S/S are not consistent with BPPV at this time. I educated her that anemia can cause symptoms of dizziness and to continue to follow up with her PCP in regards to this. I also educated her that if her symptoms are to change and she would like to be reassessed she can return to PT 2x/wk for 4wks to address impairments, implement HEP and optimize functional mobility. Electronically signed by: Abbie Buckley, PT Please sign and return to therapist. Thank you for your referral.
== END 2024-07-26 09:00 | disposition home or self-care (01) ==
LOC: HO.PTCHIC 09:49
PROVIDERS: PCP Internal Medicine; Visit Provider Internal Medicine
DX: R42 Dizziness and giddiness (principal)
CPT/HCPCS: 97110; 97162

== ENCOUNTER 2024-07-13 12:00 | Outpatient (AMB) | payer OTHER, SELFPAY ==
[2024-07-13 09:03] VITALS: BMI 45.0
--- NOTE | 2024-07-13 09:03 | MHC.OFFVISWM ---
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 She was initially seen in the surgical weight loss clinic on 06/08/2024 with a weight of 258.2 lb and a BMI of 45.1. Weight today is 258.3 with a BMI of 45.1. She has gained 0.1 lb since starting the program. She states the she is using the etouches asuncion, changed weight loss to moderate, stopped using bars meal plan: atkins rtd or premier rtd 1/2 shake, 8-10 another shake, 11-1 shake 2-4 5-7 meal 7 forks protein and 7 forks veg shake 7-9 drinking 160 oz water Exercise plan: walking outside, 4-5 days per week, not tracking calories, 45 min PFSH Medical History Wears contact lenses Gallstones Numbness and tingling in right hand Gestational diabetes Scalp cyst Miscarriage History of chicken pox Obesity Surgical History History of cholecystectomy Hx of removal of cyst History of tonsillectomy Family History Father High cholesterol CVD (cardiovascular disease) Mother HTN (hypertension) Maternal Grandmother Chronic mental illness ETOHism Maternal Aunt Asthma Paternal Aunt Diabetes mellitus Other Mental health disorder Social History Household Members: Children Both parents involved: Yes Housing: Apartment 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: Yes (3 month old child) Do you presently have visiting nurse or other home services: No Alcohol intake: former Patient Tobacco Use Status: Never used Tobacco e-Cigarette/Vaping Use: Never Used Second Hand Smoke Exposure: No Special jony needs: No Agree to transfusion: Yes service: No Current occupational status: employed Current occupational exposures/hazards: No Sexual orientation: Straight/Heterosexual Gender identity: Female Cognitive needs: No Hearing needs: No Vision needs: Yes (contacts) Female Reproductive History Menstrual Age of Menarche: 15 Telehealth Telehealth Telehealth Platform: Telephone Location of provider rendering services: practice address Location of patient: address on file Patient Identification confirmed using: Name, : Yes Telehealth method: voice only Patient verbally consented to treatment: Yes Patient verbally consented to billing insurance company: Yes Patient informed of any privacy concerns related to visit: Yes Minutes spent on Phone/Video with Pt.: 15 Assessment & Plan Assessment & Plan (1) Morbid obesity: Code(s): E66.01 - Morbid (severe) obesity due to excess calories Category: Medical Plan: Patient has not lost any weight. She states that she is following the recommendations in the asuncion however exercising minimally. She is walking outside, she does not have the finances for a gym. We discussed the importance of tracking her calories using the [facility] asuncion. She states that she will begin to do this. Discussed the importance of burning approximately 2000 calories per week. Encouraged to text me weekly with her weight measurements and if any questions or concerns. Return to clinic 3 4 weeks.
== END 2024-07-13 14:33 | disposition home or self-care (01) ==
LOC: HO.HBS 14:31
PROVIDERS: PCP Internal Medicine; Visit Provider Physician Assistant Surgical
DX: E66.01 Morbid (severe) obesity due to excess calories (principal)
CPT/HCPCS: 99213

== ENCOUNTER → 2024-07-13 12:00 | Outpatient (BNVA) | payer OTHER, SELFPAY | PROVIDERS: PCP Internal Medicine; Visit Provider Physician Assistant Surgical | DX: E66.01 Morbid (severe) obesity due to excess calories (principal) ==

== ENCOUNTER → 2024-07-18 12:19 | Outpatient (AMB) | payer OTHER, SELFPAY ==
--- NOTE | 2024-07-18 12:17 | A.OFFWM_ITS ---
Intake Intake Visit Reasons: VIDEO BH Intake Allergies No Known Allergies [No Known Allergies*] Allergy (Verified 06/18/24 12:30) PFSH Medical History Wears contact lenses Gallstones Numbness and tingling in right hand Gestational diabetes Scalp cyst Miscarriage History of chicken pox Obesity Surgical History History of cholecystectomy Hx of removal of cyst History of tonsillectomy Family History Father High cholesterol CVD (cardiovascular disease) Mother HTN (hypertension) Maternal Grandmother Chronic mental illness ETOHism Maternal Aunt Asthma Paternal Aunt Diabetes mellitus Other Mental health disorder Social History Household Members: Children Both parents involved: Yes Housing: Apartment Are you a primary critical care specialist to a significant other at home: Yes (3 month old child) Do you presently have visiting nurse or other home services: No Alcohol intake: former Patient Tobacco Use Status: Never used Tobacco e-Cigarette/Vaping Use: Never Used Second Hand Smoke Exposure: No Special jony needs: No Agree to transfusion: Yes service: No Current occupational status: employed Current occupational exposures/hazards: No Sexual orientation: Straight/Heterosexual Gender identity: Female Cognitive needs: No Hearing needs: No Vision needs: Yes (contacts) Female Reproductive History Menstrual Age of Menarche: 15 Behavioral Health Assessment Weight Management Therapy Therapy Notes Details PT is a 33 year old female, who presents for a visit to complete BH assessment as part of surgical weight loss program. PT denied any history of mental health treatment and or past hospitalization/crisis for behavioral health. Also, denies any history or recent safety concerns around SI/SA and/or self-harm/other-harm, also there is no history of substance use reported. There is also no evidence for stress/emotional-eating, and scores from BES suggest low risk for binge eating behavior. PHQ- scores also showed no active symptoms/concerns with depression. On the other hand, mental status exam is within normal limits, suggesting person's functioning is not impaired. At this time patient is cleared from the behavioral health standpoint. PT has been advised to continue working with providers closely and be consistent with program expectations and with the behavioral changed required for a successful weight loss journey. Presenting Concerns Referral Source WMP provider, Pt sees [facility]. Initial asuncion on 06/08. Initially referred by her PCP. Reason for referral Completion of behavioral health assessment as part of process for weight-loss surgery. Precipitating Event Obesity. Living Situation Current Living Situation Rent At risk of losing current housing? No Satisfied with current living situation? Yes Comments PT lives alone with her 4 children. Food/Weight/Diet Expectations of change The initial goal is to lose at least 1.5-2lbs per week, and about 10% before surgery, which is about 26 pounds. The patient's goals are to lose weight and be healthier. PT is implementing the following: Current meal plan: unable to provide Exercise plan: daily walks 30-40 min, 3-4 days at week. Not tracking calories History/Relationship with food She doesn't have a set schedule for meal. Denies any stress/emotional eating. Example of meals before starting the program: Breakfast: in between 8 and 11am, Eggs with salcedo and a bagel, cereal Lunch: around 12-1pm. Fast food ([employer]) Dinner: @4-6 pm. rice, beans, any type of meat. Snacks: Candy Drinks/Liquids: Soda approx. 3-5 cans at day and water (4 bottles). History/Relationship with weight Pt reports she has always been overweight. As a teenager she was around 180Lbs. In the last 10 years, the patient's Lowest weight was 220- 230Lbs and highest 258 or current weight. With her last 2 pregnancies she gained a lot of weight and has been unable to loss any of these. History/Relationship with dieting Gym membership last year for couple months but loss no more than 5 Lbs. Hasn't tried any diet besides doing some changes for eating healthier. Binge Eating Do you frequently eat large amounts of food in short periods of time, not feeling physically hungry? Yes Do you feel out of control when you eat a large amount of food in a short period of time? No Do you eat large amounts of food rapidly and typically alone? No Night Eating Do you wake up at least once during the night to eat? No If you wake up in the night, do you find that it is necessary to eat something in order to fall back asleep? No Do you have little or no appetite in the morning and feel very hungry in the evening, often overeating between dinner and when you go to bed? Yes Social History Family history and relationship PT is a single mother of 4, never . PT has 2 brothers. Parents are alive. PT reports she has pretty good family relationships, they are very close. 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 9 y/o girl, 8 y/o girl, 4 y/o boy and 2 y/o girl. Developmental history and status None reported. Currently WNL. Social support Parents, brother and boyfriend. Community support None. Mormonism/Spirituality None reported. Cultural/Ethnic information [place], born in [place]. Legal Involvement and History Current or historical involvement with the legal system? None reported. Education Highest grade completed HS. Preferred learning style Visual Currently enrolled in educational program? No Interested in further educational program? 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 No Meaningful activities Family activities. Get her nail and eyebrows done regularly. Reading, listen to music. Financial Situation Describe current financial situation Comfortable Financial assistance? Child Support and Food [employer] Service Service? No Mental Health and Addiction Treatment Current/Past substance abuse? No Comments Alcohol: special occasions or celebrations, maybe 2-3 times at year. 2 drinks each time. Cigarettes/Tobacco: None. Cannabis/Edibles: None. Current/Past addictive behavior concerns? No Psychiatric history No history of ever been in counseling and/or any type of BH treatment. PT denies ever been in crisis or inpatient for mental health. There is no history and/or current concern about SI/Sa and self-harm or other harm. Medical and Physical Health Summary Additional Medical History not covered in history None reported Sexual History concerns None reported Physical exam in the last year? Yes Pain Screening Current pain? Yes Pain in the last few months? Yes Comments Ankle pain, mostly daily. Also back pain. Medications Is the patient compliant with medications? Yes Does the patient have Allison Guardian in place? Not applicable Does the patient use complimentary health approaches? No Trauma/Abuse History History of trauma? No Questionnaires PHQ-9 Over the last 2 weeks, how often have you been bothered by any of the following problems? 1. Little interest or pleasure in doing things: not at all 2. Feeling down, depressed, or hopeless: not at all 3. Trouble falling or staying asleep, or sleeping too much: not at all 4. Feeling tired or having little energy: not at all 5. Poor appetite or overeating: not at all 6. Feeling bad about yourself - or that you are a failure or have let yourself or your family down: not at all 7. Trouble concentrating on things, such as reading the newspaper or watching television: not at all 8. Moving or speaking so slowly that other people could have noticed. Or the opposite - being so fidgety or restless that you have been moving around a lot more than usual: not at all 9. Thoughts that you would be better off or of hurting yourself in some way: not at all Total score: 0 Depression Screening Interpretation: Negative Depression Screening Done: Yes 62258 - PHQ-9 Billing: Yes Source: Developed by Drs. Sascha Araujo, Anjali Head, Maynor Malone and colleagues, with an educational letty from [employer]. Binge Eating Scale Group 1 A. I don't feel self-conscious about my wt. or body size when I'm with others. B. I feel concerned about how I look to others, but it normally does not make me fell disappointed with myself C. I do get self-conscious about my appearance and wt. which makes me feel disappointed in myself. D. I feel very self-conscious about my wt. and frequently I feel intense shame and disgust for myself. I try to avoid social contacts because of my self- consciousness. Response Group 1: B Group 2 A. I don't have any difficulty eating slowly in the proper manner. B. Although I seem to gobble down foods, I don't end up feeling stuffed because of eating to much. C. At times, I tend to eat quickly and then, I feel uncomfortably full afterwards. D. I have the habit of bolting down my food, without really chewing it. When this happens I usually feel uncomfortably stuffed because I've eaten to much. Response Group 2: A Group 3 A. I feel capable to control my eating urges when I want to. B. I feel like I have failed to control my eating more than the average person. C. I feel utterly helpless when it comes to feeling in control of my eating urges. D. Because I feel so helpless about controlling my eating I have become very desperate about trying to get control. Response Group 3: A Group 4 A. I don't have the habit of eating when I'm bored. B. I sometimes eat when I'm bored, but often I'm able to get busy and get my mind off food. C. I have a regular habit of eating when I'm bored, but occasionally, I can use some other activity to get my mind off eating. D. I have a strong habit of eating when I'm bored. Nothing seems to help me breath the habit. Response Group 4: B Group 5 A. I'm usually physically hungry when I eat something. B. Occasionally, I eat something on impulse even though I really am not hungry. C. I have the regular habit of eating foods, that I might not really enjoy, to satisfy a hungry feeling even though physically, I don't need the food. D. Although I'm not physically hungry, I get a hungry feeling in my mouth that only seems to be satisfied when I eat a food, like sandwich, that fills my mouth. Sometimes, when I eat the food to satisfy my mouth hunger, I then spit the food out so I won't gain weight. Response Group 5: A Group 6 A. I don't feel any guilt or self-hate after I overeat. B. After I overeat, occasionally I feel guilt or self-hate. C. Almost all the time I experience strong guilt or self-hate after I overeat. Response Group 6: A Group 7 A. I don't lose total control of my eating when dieting even after periods when I overeat. B. Sometimes when I eat a forbidden food on a diet, I feel like I blew it and eat even more. C. Frequently, I have the habit of saying to myself, I've blown it now, why not go all the way, when I overeat on a diet. When that happens I eat more. D. I have a regular habit of starting a strict diets for myself but I break the diets by going on an eating binge. My life seems to be either a feast or famine. Response Group 7: A Group 8 A. I rarely eat so much food that I feel uncomfortably stuffed afterwards. B. Usually about once a month, I each such a quantity of food, I end up feeling very stuffed. C. I have regular periods during the month when I eat large amounts of food, either at mealtime or at snacks. D. I eat so much food that I regularly feel quite uncomfortable after eating and sometimes a bit nauseous. Response Group 8: A Group 9 A. My level of calorie intake does not go up very high or go down very low on a regular basis. B. Sometimes after I overeat, I will try to reduce my caloric intake to almost nothing to compensate for the excess calories I've eaten. C. I have a regular habit of overeating during the night. It seems that my routine is not to be hungry in the morning but overeat in the evening. D. In my adult years, I have had week-long periods where I practically starve myself. This follows periods when I overeat. It seems I live a life of either feast or famine. Response Group 9: A Group 10 A. I usually am able to stop eating when I want to. I know when enough is enough. B. Every so often, I experience a compulsion to eat which I can't seem to control. C. Frequently, I experience strong urges to eat which I seem unable to control, but at other times I can control my eating urges. D. I feel incapable of controlling urges to eat. I have a fear of not being able to stop eating voluntarily. Response Group 10: A Group 11 A. I don't have any problem stopping eating when I feel full. B. I usually can stop eating when I feel full but occasionally overeat leaving me feeling uncomfortably stuffed. C. I have a problem stopping eating once I start and usually I feel uncomfortably stuffed after I eat a meal. D. Because I have a problem not being able to stop eating when I want, I sometimes have to induce vomiting to relieve my stuffed feeling. Response Group 11: B Group 12 A. I seem to eat just as much when I'm with others, Family social gatherings as when I'm by myself. B. Sometimes, when I'm with other persons, I don't eat as much as I want to eat because I'm self-conscious about my eating. C. Frequently, I eat only a small amount of food when others are present, because I'm very embarrassed about my eating. D. I feel so ashamed about overeating that I pick times to overeat when I know no one will see me. I feel like a closet eater. Response Group 12: A Group 13 A. I eat three meals a day with only an occasional between meal snack. B. I eat 3 meals a day, but I also normally snack between meals. C. When I am snacking heavily, I get in the habit of skipping regular meals. D. There are regular periods when I seem to be continually eating, with no planned meals. Response Group 13: B Group 14 A. I don't think much about trying to control unwanted eating urges. B. At least some of the time, I feel my thoughts are pre-occupied with trying to control my eating urges. C. I feel that frequently I spend much time thinking about how much I ate or about trying not to eat anymore. D. It seems to me that most of my waking hours are pre-occupied by thoughts about eating or not eating. I feel like I'm constantly struggling not to eat. Response Group 14: B Group 15 A. I don't think about food a great deal. B. I have strong craving for food but they last only for brief periods of time. C. I have days when I can't seem to think about anything else but food. D. Most of my days seem to be pre-occupied with thoughts about food. I feel like I live to eat. Response Group 15: B Group 16 A. I usually know whether or not I'm physically hungry. I take the right portion of food to satisfy me. B. Occasionally, I feel uncertain about knowing whether or not I'm physically hungry. A these times it's hard to know how much food I should take to satisfy me. C. Even though I might know how many calories I should eat, I don't have any idea what is a normal amount of food for me. Response Group 16: A Binge Eating Score: 6 Score less than 17 Minimal Risk Score between 18-26 Moderate Risk Score between 27-46 High Risk Assessment & Plan Assessment & Plan (1) Eating disorder, unspecified: Code(s): F50.9 - Eating disorder, unspecified Qualifiers: Eating disorder type: unspecified eating disorder Qualified Code(s): F50.9 - Eating disorder, unspecified Plan: DX: Eating behaviors impacting weight. Plan After completing the assessment, comparing scores from Binge eating scale and PHQ9, with mental status evaluation and patient statements, it is considered that currently, there is no risk and/or concerns to move forward with bariatric surgery. This patient has been cleared from standpoint and there is no need for a follow up pre or post-op unless PT desires. This provider has advised client to utilize available resources such as peer support group, Facebook group and group therapy, also the patient has been informed of support available at anytime while she is part of this program. Next asuncion: None Telehealth Telehealth Telehealth Platform: [facility] [place] Location of provider rendering services: other Location of patient: address on file Patient Identification confirmed using: Name, : Yes Telehealth method: voice only Patient verbally consented to treatment: Yes Patient verbally consented to billing insurance company: Yes Patient informed of any privacy concerns related to visit: No Minutes spent on Phone/Video with Pt.: 60 Coding Level of Care Code New Pt Tele Psy Diag Tristin (26038) Patient Type New Diagnoses Eating disorder, unspecified type F50.9 Eating disorder type: unspecified eating disorder Time Spent (min) 60
== END ==
PROVIDERS: PCP Internal Medicine; Visit Provider Counselor Mental Health
DX: F50.9 Eating disorder, unspecified (principal)
CPT/HCPCS: 90791

== ENCOUNTER → 2024-07-18 12:19 | Outpatient (BNVA) | payer OTHER, SELFPAY | PROVIDERS: PCP Internal Medicine; Visit Provider Counselor Mental Health ==

== ENCOUNTER 2024-08-02 12:22 | Outpatient (AMB) | payer OTHER, SELFPAY ==
--- NOTE | 2024-08-02 12:27 | A.OFFVIS_ITS ---
Vital Signs 08/02/24 12:29 Height 5 ft 3.5 in Weight 257 lb 15.053 oz BMI 45.0 Intake Visit Reasons: EMB results Senior Consulting Manager: Senior Consulting Manager Present Allergies No Known Allergies [No Known Allergies*] Allergy (Verified 06/18/24 12:30) Is last menstrual period known: Yes Last menstrual period: 09/11/20 Post menopausal: No Patient : No Do you need a note to return to daycare/school/sports/work: Yes (for surgery on tuesday) HPI Comments Details: The patient is presenting after endometrial biopsy. The patient has no complaints, no vaginal bleeding, no feverishness chills or abdominal pain. The endometrial biopsy pathology report showed the following: Benign inactive endometrium with extensive breakdown, with some fragments suggestive of benign endometrial polyps, and scant benign endocervical glandular epithelium; no atypia or carcinoma The patient is presenting for follow-up to discuss the results of her abnormal uterine bleeding workup and options of treatment. The following workup was done.: H&H= 9.8/31.2 TSH, hCG, GC and chlamydia were negative. Total and for testosterone, 17 hydroxyprogesterone within normal Co testing was done was negative. Pelvic ultrasound showed the following: The uterus is anteverted and measures 10.2 x 5.0 x 5.[address] within the endometrial cavity. Endometrium cannot be evaluated as it is obscured by the IUD. No significant free fluid. Right ovary measures 2.4 x 2.7 x 1.7 cm, volume 5.8 mL and left ovary 2.3 x 2.1 x 1.9 cm, volume 4.8 mL. Bilateral ovaries are unremarkable, although visualization is limited due to bowel gas and body habitus. [facility] Medical History Wears contact lenses Gallstones Numbness and tingling in right hand Gestational diabetes Scalp cyst Miscarriage History of chicken pox Obesity Surgical History History of cholecystectomy Hx of removal of cyst History of tonsillectomy Family History Father High cholesterol CVD (cardiovascular disease) Mother HTN (hypertension) Maternal Grandmother Chronic mental illness ETOHism Maternal Aunt Asthma Paternal Aunt Diabetes mellitus Other Mental health disorder Social History Household Members: Children Both parents involved: Yes Housing: Apartment Are you a primary school child care attendant to a significant other at home: Yes (3 month old child) Do you presently have visiting nurse or other home services: No Alcohol intake: former Patient Tobacco Use Status: Never used Tobacco e-Cigarette/Vaping Use: Never Used Second Hand Smoke Exposure: No Special jony needs: No Agree to transfusion: Yes service: No Current occupational status: employed Current occupational exposures/hazards: No Sexual orientation: Straight/Heterosexual Gender identity: Female Cognitive needs: No Hearing needs: No Vision needs: Yes (contacts) Female Reproductive History Menstrual Age of Menarche: 15 Date of last menstrual period: 09/11/20 Total pregnancies: 2 Full term: 2 Review of Systems Card Reports as per HPI and Reports no additional complaints Resp Reports as per HPI and Reports no additional complaints GI Reports as per HPI and Reports no additional complaints Reports as per HPI Physical Exam Vital Signs: BMI result Body Mass Index 45.0 Const General: cooperative, healthy appearing and comfortable Resp Effort & Inspection: normal respiratory effort Auscultation: clear to auscultation bilaterally Percussion: percussion normal Cardio Palpation: normal PMI Rate: regular rate Rhythm: regular rhythm Heart sounds: no murmurs and no rubs Peripheral pulses: Peripheral pulses 2+ throughout GI Inspection: Yes normal to inspection Palpation (GI): Soft to palpation, nontender, no guarding, not rigid and No hepatosplenomegaly present Percussion: Yes normal to percussion Auscultation: normal bowel sounds Rectal Exam - Female: deferred Assessment & Plan Assessment & Plan (1) Abnormal uterine bleeding (AUB): Comment: With hirsutism With copper IUD Endometrial polyp on EMB pathology Code(s): N93.9 - Abnormal uterine and vaginal bleeding, unspecified Category: Medical Plan: Discussed with the patient the results the pathology showing fragments of endometrial polyp, recommended hysteroscopy D&C possible polypectomy/myomectomy with Paraguard IUD removal . Discussed with the patient the procedure , all benefits and risks including but not limited to inability to complete the procedure , insufficient endometrial tissue for a complete evaluation of the endometrial cavity , bleeding, infection, possible need for blood transfusion with all its risk ( HIV,syphilis, Hepatitis, anaphylaxis shock, others..), injury to bladder, rectum, possible need for laparoscopy/laparotomy or hysterectomy. The patient verbalized understanding and signed the consent. Instructions given the patient to stay NPO after midnight the day prior to the procedure and to take only the specific medication (s) discussed the morning of the surgical procedure and to schedule a 2 week postoperative appointment (2) PCOS (polycystic ovarian syndrome): Code(s): E28.2 - Polycystic ovarian syndrome Category: Medical Plan: Discussed with the patient the results of her blood work included TSH, prolactin, testosterone, 17 hydroxyprogesterone and DHEA-S. Explained to the patient that she has a diagnosis of PCOS. D/w the patient the association of PCOS with an increase in the risk of diabetes or pre diabetes, heart disease, hypercholesterolemia and metabolic syndrome, endometrial hyperplasia and/or cancer if untreated and an increase in the risk of breast cancer. Recommended for the patient the following: -To call her pcp to screen for cardiovascular risk and diabetes with FBS and 2 hr GTT after 75 g OGTT, in addition to cholesterol, lipids, HDL and LDL. -Instructions given to patient to increase exercise combined with dietary changes reduce the risk of diabetes, explained to the patient that reduction in body weight has been associated with improved rate and decreased hirsutism as well as improvement in glucose tolerance and lipid levels -For her Menstrual cycle control: Discussed with the patient the following options of treatment : Combination low-dose hormonal contraceptives are recommended as the primary treatment for menstrual disorder Or Progestins: Cyclic progesterone versus Mirena IUD No studies have addressed the long-term use of depot medroxyprogesterone acetate and intermittent oral medroxyprogesterone acetate to treat hirsutism. The regimen of cyclic oral progestin therapy or progestin-containing intrauterine devices that most effectively prevent endometrial cancer in women with PCOS is unknown. Progestin-only contraceptives or progestin-containing intrauterine devices are an alternative for endometrial protection, but they are associated with abnormal bleeding patterns in 50?89% of users After discussion all the pros and cons risks benefits of each were discussed with the patient, the patient decided to proceed control pills -Treatment of Hirsutism was discussed with the patient so a more detailed discussion re: control pills including mechanism of action, benefits (regular menses, less dysmenorrhea, less risk of ovarian cancer, ...), risks ( DVT, PE, Strokes, [place], ? increased breast ca, others). Instructions were given to use a back- up method for contraception x 1st 2 weeks, and to schedule a 3 months appointment for blood pressure check -If the patient is interested in will send pt for a consult to reproductive endocrinology. All questions answered. Pt verbalized understanding Medications: New desogestrel-ethinyl estradiol 0.15-0.03 mg (Apri) 1 tab PO DAILY 28 days 28 tabs 2RF Coding Level of Care Code Est Pt Level 3 (57398) Diagnoses Abnormal uterine bleeding (AUB) N93.9 PCOS (polycystic ovarian syndrome) E28.2
[2024-08-02 12:29] VITALS: BMI 45.0
== END 2024-08-02 12:54 | disposition home or self-care (01) ==
PROVIDERS: PCP Internal Medicine; Visit Provider Obstetrics & Gynecology
DX: N93.9 Abnormal uterine and vaginal bleeding, unspecified (principal); E28.2 Polycystic ovarian syndrome
CPT/HCPCS: 99213

== ENCOUNTER → 2024-08-02 12:22 | Outpatient (BNVA) | payer OTHER, SELFPAY | PROVIDERS: PCP Internal Medicine; Visit Provider Obstetrics & Gynecology | DX: N93.9 Abnormal uterine and vaginal bleeding, unspecified (principal); E28.2 Polycystic ovarian syndrome | CPT/HCPCS: 99212 ==

== ENCOUNTER → 2024-08-15 09:36 | Outpatient (REF) | payer OTHER, SELFPAY ==
--- NOTE | 2024-08-15 09:39 | CA_ITS ---
Transthoracic Echocardiogram Patient (Last, First, Middle): Cynthia Mac M Gender: Female Date of : 1990 Age: 34 Procedure Date: 08/15/2024 Procedure Type: Transthoracic Echocardiogram Location: OP Height: 160.02 cm Weight: 116.58 kg BSA: 2.15 m2 Heart Rate: 83 bpm BP: 128 / 60 mmHg Manhole Stripper: REGAN Referring MD: Ankit HURTADO Senior Clinical Sas Programmer: Jean Wills MD Symptoms: R94.31 - Abnormal electrocardiogram [ECG] [EKG] Study Quality: Fair ECG Rhythm: Sinus Conclusions: - Low normal LV ejection fraction of 50-55% with otherwise normal study Findings Procedure Information Contrast agent, definity, is being given per protocol without apparent complications. Left Ventricle Normal left ventricular cavity size. There is normal left ventricular wall thickness. The left ventricular systolic function is low normal. The visually estimated ejection fraction is between 50-55%. Spectral Doppler is indicative of a normal filling pattern. Right Ventricle Normal right ventricular cavity size. Atria The left atrium is normal in size. Interatrial shunt cannot be excluded. The right atrium is normal in size. Aortic Valve The aortic valve structure and function is likely normal. There is no aortic valve stenosis. There is no aortic valve regurgitation. Mitral Valve Likely normal mitral valve structure and function. There is trace mitral valve regurgitation. There is no mitral valve stenosis. Pulmonic Valve The pulmonic valve is likely normal. Tricuspid Valve Likely normal tricuspid valve structure and function. Tricuspid regurgitation envelope is inadequate for calculation of right ventricular systolic pressure. Normal right atrial pressure. Great Vessels All visible segments of the aorta are normal in size. The pulmonary artery was not well visualized. There is no dilatation of the ascending aorta measuring 2.40 cm. Venous The inferior vena cava is normal in size and collapses greater than 50% with inspiration. Pericardium/Pleural There is no evidence of pericardial effusion. Prior Study Comparison No prior study available for comparison. Measurements 2D Linear Measurements IVSd: 1.03 0.6-0.9/0.6-1.0 cm LVIDd: 4.31 3.9-5.3/4.2-5.9 cm LVIDd Index: 2.00 2.4-3.2/2.2-3.1 cm/m2 LVIDs: 3.03 2.0-3.6 cm LVPWd: 0.79 0.7-1.1 cm LA Diam: 3.90 2.7-3.8/3.0-4.0 cm LAIDs Index: 1.81 1.5-2.3 cm/m2 LV Mass: 156.41 67-162/88-224 g LV Mass Index: 72.75 43-95/49-115 g/m2 LVOT Diam: 2.00 3.0+(-)1.3 cm 2D Systolic Function EF 4C: 52.20 >55% EF 2C: 53.90 >55% EF BiP: 52.90 >55% Mitral Valve MV Pk E: 0.77 MV PK A: 0.67 MV Decel Time: 173.00 E/A: 1.10 E'Lateral: 12.50 E'Medial: 9.68 E/E' Med: 8.00 E/E' Lat: 6.20 PHT: 51.00 MVA PHT: 4.31 Decel Blount: 4.46 Aortic Valve AoV Pk Aristides: 1.43 AoV Pk Grad: 8.00 ALEXEI: 2.90 LVOT LVOT Pk Aristides: 1.22 LVOT Mn Aristides: 0.91 LVOT VTI: 0.25 LVOT Pk Grad: 6.00 LVOT Mn Grad: 4.00 LVOT Diam: 2.00 LVOT Area: 3.14 Diastolic Function MV Pk E: 0.77 MV Pk A: 0.67 E/A: 1.10 E'Medial: 9.68 E/E' Med: 8.00 E' Laterial: 12.50 E/E' Lat: 6.20 Right Ventricle TAPSE (mm): 20.30 TVS' Aristides: 15.20 Great Vessels Aorta Sinus of Valsalva: 2.30 2.0-3.5 cm Ao Asc: 2.40 2.1-3.4 cm Ao Arch: 2.10 Ao Desc: 1.40 Pulmonary Veins Pulm Vein S/D 1.00 Pulmonary Valve PV Pk Aristides: 0.85 Peak PV Grad: 3.00 Updated in Other Vendor System with Status of Final Jean Wills MD electronically signed on 08/15/2024 12:58:18 PM with status of Final
== END ==
LOC: HO.CARD 09:36
PROVIDERS: PCP Internal Medicine; Visit Provider Physician Assistant Surgical
DX: R94.31 Abnormal electrocardiogram [ECG] [EKG] (principal)
CPT/HCPCS: 93306; Q9957

== ENCOUNTER → 2024-08-15 09:39 | Outpatient (BNV) | payer OTHER, SELFPAY | PROVIDERS: PCP Internal Medicine; Visit Provider Internal Medicine Cardiovascular Disease | DX: R94.31 Abnormal electrocardiogram [ECG] [EKG] (principal) | CPT/HCPCS: 93306 ==

== ENCOUNTER 2024-08-23 08:28 | Day surgery (SDC) | payer OTHER, SELFPAY ==
--- NOTE | 2024-08-21 14:07 | P.CONAN_ITS ---
HPI - Anesthesia Eval Consult details Narrative: 34yo F for Upper Endoscopy PMF Active Problems Active Problems: All Active Problems PCOS (polycystic ovarian syndrome) (Acute) Abnormal EKG (Acute) BPPV (benign paroxysmal positional vertigo) (Acute) Morbid obesity (Acute) Abnormal uterine bleeding (AUB) (Acute) Well woman exam (Acute) Dizziness (Acute) Iron (Fe) deficiency anemia (Acute) Screening for cervical cancer (Acute) Encounter for assessment (Acute) History of gestational diabetes (Acute) History of unprotected sex (Acute) Carpal tunnel syndrome of right wrist (Acute) Sciatica of left side (Acute) Screening for diabetes mellitus (DM) (Acute) (Acute) Encounter for screening for malformation using ultrasound (Acute) History of gestational diabetes mellitus (GDM) in prior , currently (Acute) Elevated glucose tolerance test (Acute) Obesity, morbid, BMI 40.0-49.9 (Acute) Gestational diabetes mellitus (GDM) affecting , antepartum (Acute) Gestational diabetes mellitus (GDM) affecting , antepartum (Acute) Biliary colic (Acute) Physical exam (Acute) Wheezing (Acute) History of gestational diabetes mellitus (GDM) (Acute) Generalized rash (Acute) Iron deficiency anemia (Acute) Cholelithiasis (Acute) Gallstones (Acute) Numbness and tingling in right hand (Acute) Past Medical History Medical History Wears contact lenses Gallstones Numbness and tingling in right hand Gestational diabetes Scalp cyst Miscarriage History of chicken pox Obesity Family History Family History Father High cholesterol CVD (cardiovascular disease) Mother HTN (hypertension) Maternal Grandmother Chronic mental illness ETOHism Maternal Aunt Asthma Paternal Aunt Diabetes mellitus Other Mental health disorder Family history of problems with anesthesia: No Surgical History Surgical History History of cholecystectomy Hx of removal of cyst History of tonsillectomy History of Problems with Anesthesia: No Social History Social History Household Members: Children Both parents involved: Yes Housing: Apartment Are you a primary director career services to a significant other at home: No Do you presently have visiting nurse or other home services: No Alcohol intake: former Patient Tobacco Use Status: Never used Tobacco e-Cigarette/Vaping Use: Never Used Second Hand Smoke Exposure: No Special jony needs: No Agree to transfusion: Yes service: No Current occupational status: employed Current occupational exposures/hazards: No Sexual orientation: Straight/Heterosexual Gender identity: Female Cognitive needs: No Hearing needs: No Vision needs: Yes (contacts) Meds Allergies Allergy/AdvReac Type Severity Reaction Status Date / Time No Known Allergies Allergy Verified 08/23/24 11:28 [No Known Allergies*] Assessment and Plan Assessment Anesthesia Assessment: Chart Reviewed Final Anesthetic Review Family History of Problems with Anesthesia: No History of Problems with Anesthesia: No
--- OUTSIDE RECORDS SUMMARY | 2024-08-23 08:30 | XMS_ITS | Continuity of Care Document ---
Author Organization [facility] Address [address], [address] [place] [address]- Care Team Providers Care Supervisor Painting Department Name Role Phone Joey Argueta MD, Gloria Chavez Primary Care Physician [phone] [id number] Date[facility]s): 12/03/21 - 12/10/21 [facility] [address] [place] [address]- Attending Physician: Aaron Ortega MD Referring Physician: Rocky HARRIS [OB], Tracy Giraldo Allergies, Adverse Reactions, Alerts No Known Allergies Immunizations Given and Recorded Vaccine Date Status Refusal Reason tetanus/diphtheria/pertussis, acel(Tdap) 12/03/21 Given influenza virus vaccine, inactivated 12/03/21 Give n Medications metFORMIN 500 mg oral tablet 1 tablet = 500 mg, By Mouth, Daily at bedtime, with meals, # 30 tablet, 0 Refills, Maintenance, 10/01/21 11:49:00 EST, Tablet, Partial fill upon patient request if the prescription is for a schedule II opioid drug. Start Date: 10/01/21 Status: Ordered Multivitamins By Mouth, Daily, 0 Refills, Maintenance, 05/21/20 16:37:00 EDT Start Date: 05/21/20 Status: Ordered triamcinolone 0.1% topical cream 1 application, Topically, 3 times a day, # 30 Gm, 2 Refills, Acute 11/16/22 16:49:00 EST, 11/16/21 16:49:00 EST, Cream, [id number], Partial fill upon patient request if the prescription is for a schedule II opioid drug., 1 application Topicall... Start Date: 11/16/21 Stop Date: 11/16/22 Status: Ordered Problem List Condition Effective Dates Status Health Status Inform ant Anemia in mother complicatin g , childbirth AND/OR puerperium(Confirmed) 1 05/21/20 Active Gestational diabetes mellitu s, class A2(Confirmed) Active Elevated LFTs(Confirmed) Active Morbid obesity(Confirmed) Active Obesity in (Confirmed) Active Numbness and tingling in rig ht hand(Confirmed) Active PUPP (pruritic urticarial pa pules and plaques of )(Confirmed) Active Severe obesity(Confirmed) Active 1Problem added by Discern Expert Vital Signs Most recent to oldest [Reference Range]: 1 Height 160 cm (12/03/21 1:26 PM) Weight 116.23 kg (12/03/21 1:26 PM) Body Mass Index [18.5-24.99] 45.4 *>HHI* (12/03/21 1:26 PM) Blood Pressure [90-138/55-84 mm Hg] 134/ 54mm Hg (12/03/21 1:26 PM) Blood pressure sites Arm, right (12/03/21 1:26 PM) Weight Obtained Via Standing scale (12/03/21 1:26 PM) Social History Social History Type Response Smoking Status Never (less than 100 in lifetime) entered on: 10/01/21 Sex
--- OUTSIDE RECORDS SUMMARY | 2024-08-23 08:30 | XMS_ITS | Continuity of Care Document ---
Author Organization [facility] ter Address [address] [place] [address]- Care Team Providers Care Packing Line Worker Name Role Phone Joey Argueta MD, Gloria Chavez Primary [id number] - 07/23/[address] [address]- Discharge Disposition: A-D/C Walkout Attending Physician: Not on Staff, Attending MD Admitting Physician: Not on Staff, Admitting MD Referring Physician: Not on Staff, Referring MD Allergies, Adverse Reactions, Alerts No Known Allergies Immunizations Given and Recorded Vaccine Date Status Refusal Reason tetanus/diphtheria/pertussis, acel(Tdap) 12/03/21 Given influenza virus vaccine, inactivated 12/03/21 Give n Medications acetaminophen 325 mg oral tablet 650 mg, By Mouth, Every 4 hours, PRN, (1-3), may give 325mg per patient preference and re-dose [id number] within 4 hours, if needed. Patient should only receive a total of 650mg of Acetaminophen every 4 hours., Refills 0, Maintenance, Pain , Mild, 0... Start Date: 12/28/21 Status: Ordered ibuprofen 800 mg oral tablet 800 mg, 1, tablet, By Mouth, Every 8 hours, PRN, (4-6), may give 400mg per patient preference and re-dose with 400mg within 8 hours if needed. Patient should only receive a total of 800mg of Ibuprofen every 8 hours., Refills 0, Maintenance, Pain , M... Start Date: 12/28/21 Status: Ordered Paragard IUD See Instructions, # 1 kit, Maintenance, insert intrauterine device, 12/14/21 11:23:00 EST, Supply, 160, cm, 12/14/21 10:48:00 EST, Height, 115, kg, 11/16/21 16:55:00 EST, Dry Weight Start Date: 12/14/21 Status: Ordered Plan B One-Step 1.5 mg oral tablet 1.5 mg, 1, tablet, By Mouth, Once, # 1 tablet, Refills 0, Tot. Refills 0, Soft Stop, 01/11/22 13:25:00 EST, Route to Pharmacy Electronically, [facility]/pharmacy #[id number], Partial fill upon patient request if the prescription is for a schedule II opioid drug.,... Start Date: 01/11/22 Status: Ordered Multivitamins By Mouth, Daily, 0 Refills, Maintenance, 05/21/20 16:37:00 EDT Start Date: 05/21/20 Status: Ordered Problem List Condition Confirmation Course Effective Dates Status Health St atus Informant Anemia in mother complicating , childbirth AND/OR puerperium 1 Confirmed 05/21/20 Active Size > dates. Growth ultrasound 12/10/21 42% 2 Confirmed Active Gestational diabetes mellitus, class A2 Confirmed Active Elevated LFTs Confirmed Active Morbid obesity Confirmed Active Obesity in Confirmed Active Numbness and tingling in right hand Confirmed Active PUPP (pruritic urticarial papules and plaques of ) Confirmed Active Severe obesity Confirmed Active 1Problem added by Discern Expert 2Est. FW: 2864 gm 6 lb 5 oz 42 % Vital Signs Most recent to oldest [Reference Range]: 1 2 Height 160 cm (07/23/24 5:58 PM) 160 cm (07/23/24 5:54 PM) Weight 118 kg (07/23/24 5:58 PM) 118 kg (07/23/24 5:54 PM) Oxygen Saturation [94-100 %] 100 % (07/23/24 5:54 PM) 100 % (07/23/24 5:54 PM) Pulse Rate [55-90 bpm] 105 bpm *H* (07/23/24 5:54 PM) 85 bpm (07/23/24 5:54 PM) Body Mass Index [18.5-24.99 kg/m2] 46.09 kg/m2 *>HHI* (07/23/24 5:54 PM) Blood Pressure [90-138/55-84 mm Hg] 139/ 69mm Hg *H* (07/23/24 5:54 PM) Respiratory Rate [16-30 br/min] 18 br/mi n (07/23/24 5:54 PM) 18 br/min (07/23/24 5:54 PM) Temperature [96.8-100.4 DegF] 98.3 DegF (07/23/24 5:54 PM) Mode of Delivery (Oxygen) Room air (07/23/24 5:54 PM) Room air (07/23/24 5:54 PM) Blood pressure sites Arm, right (07/23/24 5:54 PM) Temperature Route Oral (07/23/24 5:54 PM) Dry Weight 118 kg (07/23/24 5:58 PM) 118 kg (07/23/24 5:54 PM) Weight Obtained Via Patient/family state d (07/23/24 5:54 PM) Dry Weight Obtained Via Patient/family s tated (07/23/24 5:54 PM) Social History Social History Type Response Smoking Status Never (less than 100 in lifetime) entered on: 10/01/21 Sex Patient Care team information Care Team Personnel Name: Joey Argueta MD , Gloria Chavez Position: Reference Physician Member Role: PCP Address: Address: [address] [place] [address]- Care Team Related Persons Name: BEATRICE DOMINGUEZ Address: Address: home [address] [place] [address] [place] Name: GLORIA LENNON Address: home [address] [place] [address]
--- OUTSIDE RECORDS SUMMARY | 2024-08-23 08:31 | XMS_ITS | Continuity of Care Document ---
Author Organization [facility] [employer] Address [address], 4t [place] [address]- Care Team Providers Care Fireworks Display Specialist Name Role Phone Joey Argueta MD, Gloria Chavez Primary Care Physician [id number] Date[facility]s): 12/03/21 - 12/10/21 [facility] [address], 4th [place] [address]- Attending Physician: Rocky HARRIS [OB], Tracy Giraldo Allergies, [...] 16:49:00 EST, 11/16/21 16:49:00 EST, Cream, [id number], Partial fill upon patient request if the [...] obesity(Confirmed) Active 1Problem added by Discern Expert Social History Social History Type Response Smoking Status Never (less than 100 in lifetime) entered on: 10/01/21 Sex
--- OUTSIDE RECORDS SUMMARY | 2024-08-23 08:31 | XMS_ITS | Continuity of Care Document ---
Author Organization [facility] [employer] Address [address] [place] [address], [address] [place] [address]- Care Team Providers Care Marketing Strategy Lead Name Role Phone Joey Argueta MD, Gloria Chavez Primary Care Physician [phone] Encounter [facility] [place] Date(s): 11/17/21 - 01/16/22 [facility] [facility] [address] [facility], [address] [place] [address]- Attending Physician: Rocky HARRIS [OB], Tracy Giraldo Allergies, Adverse Reactions, Alerts No Known Allergies Immunizations Given and Recorded Vaccine Date Status Refusal Reason tetanus/diphtheria/pertussis, acel(Tdap) 12/03/21 Given influenza virus vaccine, inactivated 12/03/21 Give n Medications acetaminophen 325 mg oral tablet 650 mg, By Mouth, Every 4 hours, PRN, (1-3), may give 325mg per patient preference and re-dose [id number] within 4 hours, if needed. Patient should [...] 01/11/22 13:25:00 EST, Route to Pharmacy Electronically, [facility]/pharmacy #[id number], Partial fill upon patient request if the prescription is for a schedule II opioid drug.,... Start Date: 01/11/22 Status: Ordered Multivitamins By Mouth, Daily, 0 Refills, Maintenance, 05/21/20 16:37:00 EDT Start Date: 05/21/20 Status: Ordered triamcinolone 0.1% topical cream 1 application, Topically, 3 times a day, # 30 Gm, 2 Refills, Acute 11/16/22 16:49:00 EST, 11/16/21 16:49:00 EST, Cream, [facility]/pharmacy #[id number], Partial fill upon patient request if the prescription is for a schedule II opioid drug., 1 application Topicall... Start Date: 11/16/21 Stop Date: 11/16/22 Status: Ordered Problem List Condition Effective Dates Status Health Status Inform ant Anemia in mother complicatin g , childbirth AND/OR puerperium(Confirmed) 1 05/21/20 Active Size > dates. Growth ultraso und 12/10/21 42%(Confirmed) 2 Active Gestational diabetes mellitu s, class A2(Confirmed) Active Elevated LFTs(Confirmed) Active Morbid obesity(Confirmed) Active Obesity in (Confirmed) Active Numbness and tingling in rig ht hand(Confirmed) Active PUPP (pruritic urticarial pa pules and plaques of )(Confirmed) Active Severe obesity(Confirmed) Active 1Problem added by Discern Expert 2Est. FW: 2864 gm 6 lb 5 oz 42 % Social History Social History Type Response Smoking Status Never (less than 100 in lifetime) entered on: 10/01/21 Sex
--- OUTSIDE RECORDS SUMMARY | 2024-08-23 08:31 | XMS_ITS | Continuity of Care Document ---
Author Organization [facility] [employer] [employer] Address [address], 4t [place] [address]- Care Team Providers Care Solar Project Manager Name Role Phone Joey Argueta MD, Margaret Chavez Primary Care Physician [place] [facility] [place] - 07/12/20 [facility] [address], [address]th [place] [address]- [facility] Attending Physician: Shannon HARRIS, Aaron Sanchez Allergies, Adverse Reactions, Alerts Substance Reaction Severity Status NKA Active Medications Ferrous Sulfate-Folic Acid 0 Refills, Maintenance, 05/21/20 16:37:00 EDT Start Date: 05/21/20 Status: Ordered Multivitamins By Mouth, Daily, 0 Refills, Maintenance, 05/21/20 16:37:00 EDT Start Date: 05/21/20 Status: Ordered Zofran ODT 4 mg oral tablet, disintegrating 1 tablet = 4 mg, By Mouth, 3 times a day, # 12 tablet, 0 Refills, Maintenance, 10/20/16 16:42:22 Start Date: 10/20/16 Status: Ordered Problem List Condition Effective Dates Status Health Status Inform ant Anemia in mother complicatin g , childbirth AND/OR puerperium(Confirmed) 1 05/21/20 Active Gestational diabetes mellitu s, class A>1<(Confirmed) 2 05/21/20 Active Elevated LFTs(Confirmed) Active Morbid obesity(Confirmed) Active Polyhydramnios(Confirmed) Active 1Problem added by Discern Expert 2Problem added by Discern Expert Social History Social History Type Response Smoking Status Never (less than 100 in lifetime) entered on: 05/21/20 Sex
--- OUTSIDE RECORDS SUMMARY | 2024-08-23 08:31 | XMS_ITS | Continuity of Care Document ---
Author Organization [facility] [employer] Address [address] [address] [facility], 4t [place] [address]- Care Team Providers Care Wood Caulker Name Role Phone Joey Argueta MD, Gloria Chavez Primary Care Physician [place] [facility] [place] Date(s[place] 09/23/21 - 11/04/21 [facility] [address] [facility], 4th [place] [address]- Attending Physician: Rocky HARRIS [OB], Tracy Giraldo Allergies, Adverse Reactions, Alerts Substance Reaction Severity Status NKA Active Medications metFORMIN 500 mg oral tablet 1 [...] Date: 05/21/20 Status: Ordered Problem List Condition Effective Dates Status Health Status Inform ant Anemia in mother complicatin g , childbirth AND/OR puerperium(Confirmed) 1 05/21/20 Active Gestational diabetes mellitu s, class A2(Confirmed) Active Elevated LFTs(Confirmed) Active Morbid obesity(Confirmed) Active Obesity in (Confirmed) Active Numbness and tingling in rig ht hand(Confirmed) Active PUPP (pruritic urticarial pa pules and plaques of )(Confirmed) Active 1Problem added by Discern Expert Social History Social History Type Response Smoking Status Never (less than 100 in lifetime) entered on: 10/01/21 Sex
--- OUTSIDE RECORDS SUMMARY | 2024-08-23 08:31 | XMS_ITS | Continuity of Care Document ---
Author Organization [facility] [employer] [employer] Address [address] [facility] [address] [facility], 4t [place] [address]- Care Team Providers Care Respiratory Care Program Director Name Role Phone Joey Argueta MD, Margaret Chavez Primary Care Physician [place] [facility] [place] - 07/02/20 [facility] [address] [facility], [address]th [place] [address]- [facility] Allergies, Adverse Reactions, Alerts Substance Reaction Severity [...]
--- OUTSIDE RECORDS SUMMARY | 2024-08-23 08:31 | XMS_ITS | Continuity of Care Document ---
Author Organization [facility] [employer] Address [address] [place] [address], [address]t [place] [address]- Care Team Providers Care Felt Tipping Machine Tender Name Role Phone Joey Argueta MD, Gloria Chavez Primary Care Physician [place] [facility] [place](s): 12/10/21 - 12/17/21 [facility] [address] [facility], [address] [place] [address]- Attending Physician: Rocky HARRIS [OB], Tracy Giraldo [...] opioid drug. Start Date: 10/01/21 Status: Ordered Paragard IUD See Instructions, # 1 kit, Maintenance, insert intrauterine device, 12/14/21 11:23:00 EST, Supply, 160, cm, 12/14/21 10:48:00 EST, Height, 115, kg, 11/16/21 16:55:00 EST, Dry Weight Start Date: 12/14/21 Status: Ordered Multivitamins By Mouth, Daily, 0 Refills, Maintenance, 05/21/20 16:37:00 EDT Start Date: 05/21/20 Status: Ordered triamcinolone 0.1% topical cream 1 application, Topically, 3 times a day, # 30 Gm, 2 Refills, Acute 11/16/22 16:49:00 EST, 11/16/21 16:49:00 EST, [id number], Partial fill upon patient request if the [...]
--- OUTSIDE RECORDS SUMMARY | 2024-08-23 08:31 | XMS_ITS | Continuity of Care Document ---
Author Organization [facility] [employer] Address [address] [facility], 4t [place] [address]- Care Team Providers Care Dynamics Ax Technical Architect Name Role Phone Joey Argueta MD, Gloria Chavez Primary Care Physician [phone] [id number] Date(s): 09/23/21 - 10/23/21 [facility] [facility] [address] [facility] [facility], [address]th [address] [place], [place] [address] Allergies, Adverse Reactions, Alerts Substance Reaction Severity Status NKA Active Medications Ferrous Sulfate-Folic Acid 0 Refills, Maintenance, 05/21/20 16:37:00 EDT Start Date: 05/21/20 Status: Ordered metFORMIN 500 mg oral tablet 1 tablet [...] , childbirth AND/OR puerperium(Confirmed) 1 05/21/20 Active Scalp cyst(Confirmed) Active Gestational diabetes mellitu s, class A>1<(Confirmed) 2 05/21/20 Active Gestational diabetes mellitu s, class A2(Confirmed) Active History of chicken pox(Confirmed) Active History of gonorrhea(Confirmed) Active Elevated LFTs(Confirmed) Active Migraines(Confirmed) Active Miscarriage(Confirmed) Active Morbid obesity(Confirmed) Active Numbness and tingling in rig ht hand(Confirmed) Active Polyhydramnios(Confirmed) Active 1Problem added by Discern Expert 2Problem added by Discern Expert Social History Social History Type Response Smoking Status Never (less than 100 in lifetime) entered on: 10/01/21 Sex
--- OUTSIDE RECORDS SUMMARY | 2024-08-23 08:31 | XMS_ITS | Continuity of Care Document ---
Author Organization [facility] [employer] Address [address] [facility], 4t [place] [address]- Care Team Providers Care Assistant Director Of Public Works Name Role Phone Joey Argueta MD, Gloria Chavez Primary Care Physician [phone] [id number] Date(s): 11/17/21 - 01/30/22 [facility] [employer] [facility] [address] [facility], [address]th [place] [address]- Attending Physician: Aaron Ortega MD Referring Physician: Rocky HARRIS [OB], Tracy Giraldo Allergies, Adverse Reactions, Alerts No Known Allergies Immunizations Given and Recorded Vaccine Date Status Refusal Reason tetanus/diphtheria/pertussis, acel(Tdap) 12/03/21 Given influenza virus vaccine, inactivated 12/03/21 Give n Medications acetaminophen 325 mg oral tablet 650 mg, By Mouth, Every 4 hours, PRN, (1-3), may give 325mg per patient preference and re-dose [id number] within 4 hours, if needed. Patient should [...] 01/11/22 13:25:00 EST, Route to Pharmacy Electronically, [facility]/pharmacy #[id number], Partial fill upon patient request if the prescription is for a schedule II opioid drug.,... Start Date: 01/11/22 Status: Ordered Multivitamins By Mouth, Daily, 0 Refills, Maintenance, 05/21/20 16:37:00 EDT Start Date: 05/21/20 Status: Ordered triamcinolone 0.1% topical cream 1 application, Topically, 3 times a day, # 30 Gm, 2 Refills, Acute 11/16/22 16:49:00 EST, 11/16/21 16:49:00 EST, Cream, [facility]/pharmacy #[id number], Partial fill upon patient request [...]
--- OUTSIDE RECORDS SUMMARY | 2024-08-23 08:31 | XMS_ITS | Continuity of Care Document ---
Author Organization [facility] [employer] Address [address] [facility] [address] [facility], 4t [place] [address]- Care Team Providers Care Solvent Mixer Name Role Phone Joey Argueta MD, Gloria Chavez Primary Care Physician [id number] Date(s): 10/30/21 - 11/06/21 [facility] [address] [facility], [address]th [place] [address]- Attending Physician: Hermelinda HARRIS, Kaylah Sanchez Referring Physician: Not on Staff, Referring MD Allergies, Adverse Reactions, Alerts Substance Reaction Severity [...] )(Confirmed) Active 1Problem added by Discern Expert Vital Signs Most recent to oldest [Reference Range]: 1 Height 160 cm (10/30/21 9:13 AM) Weight 115.4 kg (10/30/21 9:13 AM) Body Mass Index [18.5-24.99] 45.08 *>HHI* (10/30/21 9:13 AM) Blood Pressure [90-138/55-84 mm Hg] 124/ 72mm Hg (10/30/21 9:13 AM) Blood pressure sites Arm, right (10/30/21 9:13 AM) Weight Obtained Via Standing scale (10/30/21 9:13 AM) Social History Social History Type Response Smoking Status Never (less than 100 in lifetime) entered on: 10/01/21 Sex
--- OUTSIDE RECORDS SUMMARY | 2024-08-23 08:31 | XMS_ITS | Continuity of Care Document ---
Author Organization [facility] n[facility] Group Address [address] [facility], [address]t [place] [address]- Care Team Providers Care Table Saw Operator Name Role Phone Joey Argueta MD, Gloria Chavez Primary Care Physician [id number] Date(s): 03/24/22 - 04/23/22 [facility] [employer] [facility] [address] [facility], [address] [place], [place] [address] Attending Physician: Sergey Huang Admitting Physician: Sergey Huang Referring Physician: [id number] Allergies, Adverse Reactions, Alerts No Known Allergies Immunizations Given and Recorded Vaccine Date Status Refusal Reason tetanus/diphtheria/pertussis, acel(Tdap) 12/03/21 Given influenza virus vaccine, inactivated 12/03/21 Give n Medications acetaminophen 325 mg oral tablet 650 mg, By Mouth, Every 4 hours, PRN, (1-3), may give 325mg per patient preference and re-dose [id number] within 4 hours, if needed. Patient should [...] 01/11/22 13:25:00 EST, Route to Pharmacy Electronically, [facility]/pharmacy #[id number], Partial fill upon patient request if the prescription is for a schedule II opioid drug.,... Start Date: 01/11/22 Status: Ordered Multivitamins By Mouth, Daily, 0 Refills, Maintenance, 05/21/20 16:37:00 EDT Start Date: 05/21/20 Status: Ordered triamcinolone 0.1% topical cream 1 application, Topically, 3 times a day, # 30 Gm, 2 Refills, Acute 11/16/22 16:49:00 EST, 11/16/21 16:49:00 EST, Cream, [facility]/pharmacy #[id number], Partial fill upon patient request if [...]
--- OUTSIDE RECORDS SUMMARY | 2024-08-23 08:31 | XMS_ITS | Continuity of Care Document ---
Author Organization [facility] [employer] Address [address] [facility], 4t [place] [address]- Care Team Providers Care Rn Stars Name Role Phone Joey Argueta MD, Margaret Chavez Primary Care Physician [phone] En[facility] [place] Date(s): 06/09/20 - 07/09/20 [facility] [address] [facility], 4th [place] [address]- [facility] Allergies, Adverse Reactions, Alerts Substance Reaction Severity [...]
--- OUTSIDE RECORDS SUMMARY | 2024-08-23 08:31 | XMS_ITS | Continuity of Care Document ---
Author Organization [facility] ter Address [address] [place] [address]- Care Team Providers Care Editor & Co Founder Name Role Phone Joey Argueta MD, Margaret Chavez Primary Care Physician [place] [facility] [place] Date(s): 05/21/20 - 05/21/[address] [address]- [facility] Discharge Disposition: A-D/C Home Attending Physician: Madison Adhikari MD Admitting Physician: Madison Adhikari MD Referring Physician: Madison Adhikari MD Allergies, Adverse Reactions, Alerts Substance Reaction [...] , childbirth AND/OR puerperium(Confirmed) 1 05/21/20 Active Body mass index 30+ - obesity(Confirmed) 2 05/21/20 Active Gestational diabetes mellitu s, class A>1<(Confirmed) 3 05/21/20 Active 1Problem added by Discern Expert 2Problem added by Discern Expert 3Problem added by Discern Expert Procedures Procedure Date Related Diagnosis Body Site Status Tonsil Completed Vital Signs Most recent to oldest [Reference Range]: 1 2 Height 160 cm (05/21/20 4:35 PM) Weight 116.8 kg (05/21/20 4:35 PM) 116.8 kg (05/21/20 4:27 PM) Body Mass Index [18.5-24.99] 45.63 *>HHI* (05/21/20 4:35 PM) Blood Pressure [90-138/55-84 mm Hg] 97/7 7mm Hg (05/21/20 4:46 PM) Respiratory Rate [16-30 br/min] 16 br/mi n (05/21/20 4:46 PM) Temperature [96.8-100.4 DegF] 98.3 DegF (05/21/20 4:27 PM) Blood pressure sites Arm, left (05/21/20 4:46 PM) Temperature Route Oral (05/21/20 4:27 PM) Dry Weight 116.8 kg (05/21/20 4:27 PM) Weight Obtained Via Standing scale (05/21/20 4:27 PM) Dry Weight Obtained Via Standing scale (05/21/20 4:27 PM) Social History Social History Type Response Smoking Status Never (less than 100 in lifetime) entered on: 05/21/20 Sex
--- OUTSIDE RECORDS SUMMARY | 2024-08-23 08:31 | XMS_ITS | Continuity of Care Document ---
Author Organization [facility] [employer] Address [address] [place] [address], [address] [place] [address]- Care Team Providers Care Assembler Fluorescent Lights Name Role Phone Joey Argueta MD, Gloria Chavez Primary Care Physician [phone] [id number] Date(s): 11/17/21 - 01/23/22 [facility] [address] [facility], [address]th [place] [address]- Attending Physician: Aaron Ortega MD Referring Physician: Rocky HARRIS [OB], Tracy Giraldo Allergies, Adverse Reactions, Alerts No Known Allergies Immunizations Given and Recorded Vaccine Date Status Refusal Reason tetanus/diphtheria/pertussis, acel(Tdap) 12/03/21 Given influenza virus vaccine, inactivated 12/03/21 Give n Medications acetaminophen 325 mg oral tablet 650 mg, By Mouth, Every 4 hours, PRN, (1-3), may give 325mg per patient preference and re-dose [id number] within 4 hours, if needed. Patient should [...] to Pharmacy Electronically, [facility]/pharmacy #[id number], Partial fill upon patient request if the prescription is for a schedule II opioid drug.,... Start Date: 01/11/22 Status: Ordered Multivitamins By Mouth, Daily, 0 Refills, Maintenance, 05/21/20 16:37:00 EDT Start Date: 05/21/20 Status: Ordered triamcinolone 0.1% topical cream 1 application, Topically, 3 times a day, # 30 Gm, 2 Refills, Acute 11/16/22 16:49:00 EST, 11/16/21 16:49:00 EST, Cream, [facility]/pharmacy #[id number], Partial fill upon patient request [...]
--- OUTSIDE RECORDS SUMMARY | 2024-08-23 08:31 | XMS_ITS | Continuity of Care Document ---
Author Organization [facility] ter Address [address] [place] [address]- Care Team Providers Care Engineering Agent Name Role Phone Joey Argueta MD, Gloria Chavez Primary Care Physician [phone] Encounter [facility] Date(s): 12/27/21 - 12/28/[address] [address] Discharge Disposition: A-D/C Home Attending Physician: Navya Moura MD Admitting Physician: Navya Moura MD Referring Physician: Navya Moura MD Allergies, Adverse Reactions, Alerts No Known Allergies Immunizations Given and Recorded Vaccine Date Status Refusal Reason tetanus/diphtheria/pertussis, acel(Tdap) 12/03/21 Given influenza virus vaccine, inactivated 12/03/21 Give n Medications acetaminophen 325 mg oral tablet 650 mg, By Mouth, Every 4 hours, PRN, (1-3), may give 325mg per patient preference and re-dose [id number] within 4 hours, if needed. Patient should [...] 16:49:00 EST, 11/16/21 16:49:00 EST, Cream, [id number], Partial fill upon patient request if [...] recent to oldest [Reference Range]: 1 2 3 Height 160 cm (12/28/21 8:20 AM) 160 cm (12/28/21 12:06 AM) 160 cm (12/27/21 8:30 PM) Weight 113.6 kg (12/27/21 12:50 PM) 114.6 kg (12/27/21 10:19 AM) Oxygen Saturation [94-100 %] 100 % (12/27/21 4:38 PM) 100 % (12/27/21 1:51 PM) 100 % (12/27/21 12:50 PM) Pulse Rate [55-90 bpm] 66 bpm (12/28/21 8:20 AM) 58 bpm (12/28/21 12:06 AM) 70 bpm (12/27/21 8:30 PM) Body Mass Index [18.5-24.99] 44.38 *>HHI* (12/27/21 12:50 PM) Blood Pressure [90-138/55-84 mm Hg] 123/55mm Hg (12/28/21 8:20 AM) 103/49mm Hg (12/28/21 12:06 AM) 109/55mm Hg (12/27/21 8:30 PM) Respiratory Rate [16-30 br/min] 18 br/min (12/28/21 8:20 AM) 18 br/min (12/28/21 12:06 AM) 18 br/min (12/27/21 8:30 PM) Temperature [96.8-100.4 DegF] 97.5 DegF (12/28/21 8:20 AM) 98.3 DegF (12/28/21 12:06 AM) 98.7 DegF (12/27/21 8:30 PM) Mode of Delivery (Oxygen) Room air (12/27/21 4:38 PM) Room air (12/27/21 1:51 PM) Room air (12/27/21 12:50 PM) Blood pressure sites Arm, right (12/27/21 4:38 PM) Arm, right (12/27/21 1:51 PM) Arm, right (12/27/21 12:50 PM) Temperature Route Oral (12/28/21 8:20 AM) Oral (12/28/21 12:06 AM) Oral (12/27/21 8:30 PM) Dry Weight 113.6 kg (12/27/21 12:50 PM) Weight Obtained Via Patient/family state d (12/27/21 12:50 PM) Dry Weight Obtained Via Patient/family s tated (12/27/21 12:50 PM) Social History Social History Type Response Smoking Status Never (less than 100 in lifetime) entered on: 10/01/21 Sex
--- OUTSIDE RECORDS SUMMARY | 2024-08-23 08:31 | XMS_ITS | Continuity of Care Document ---
Author Organization [facility] [employer] Address [address] [place] [address], [address] [place] [address]- Care Team Providers Care Cross Country Truck Driver Name Role Phone Joey Argueta MD, Gloria Chavez Primary Care Physician Encounter [facility] [place] [facility] Date(s): 11/17/21 - 01/16/22 [facility] [employer] [facility] [address] [facility], 4th [place] [address]- Attending Physician: Aaron Ortega MD Referring Physician: Rocky HARRIS [OB], Tracy Giraldo Allergies, Adverse Reactions, Alerts No Known Allergies Immunizations Given and Recorded Vaccine Date Status Refusal Reason tetanus/diphtheria/pertussis, acel(Tdap) 12/03/21 Given influenza virus vaccine, inactivated 12/03/21 Give n Medications acetaminophen 325 mg oral tablet 650 mg, By Mouth, Every 4 hours, PRN, (1-3), may give 325mg per patient preference and re-dose [id number] within 4 hours, if needed. Patient should [...] 01/11/22 13:25:00 EST, Route to Pharmacy Electronically, [facility]/pharmacy #[id number], Partial fill upon patient request if the prescription is for a schedule II opioid drug.,... Start Date: 01/11/22 Status: Ordered Multivitamins By Mouth, Daily, 0 Refills, Maintenance, 05/21/20 16:37:00 EDT Start Date: 05/21/20 Status: Ordered triamcinolone 0.1% topical cream 1 application, Topically, 3 times a day, # 30 Gm, 2 Refills, Acute 11/16/22 16:49:00 EST, 11/16/21 16:49:00 EST, Cream, [facility]/pharmacy #[id number], Partial fill upon patient request if [...]
--- OUTSIDE RECORDS SUMMARY | 2024-08-23 08:31 | XMS_ITS | Continuity of Care Document ---
Author Organization [facility] [employer] Address [address] [facility], [address]t [place] [address]- Care Team Providers Care Loop Tacker Name Role Phone Joey Argueta MD, Gloria Chavez Primary Care Physician [id number] Date(s): 02/08/22 - 04/23/22 [facility] [employer] [facility] [facility] [address], [address] [place] [address]- Attending Physician: Hermelinda HARRIS, Kaylah Sanchez Allergies, Adverse Reactions, Alerts No Known Allergies Immunizations Given and Recorded Vaccine Date Status Refusal Reason tetanus/diphtheria/pertussis, acel(Tdap) 12/03/21 Given influenza virus vaccine, inactivated 12/03/21 Give n Medications acetaminophen 325 mg oral tablet 650 mg, By Mouth, Every 4 hours, PRN, (1-3), may give 325mg per patient preference and re-dose [id number] within 4 hours, if needed. Patient should [...] 01/11/22 13:25:00 EST, Route to Pharmacy Electronically, [facility]/pharmacy #[id number], Partial fill upon patient request if the prescription is for a schedule II opioid drug.,... Start Date: 01/11/22 Status: Ordered Multivitamins By Mouth, Daily, 0 Refills, Maintenance, 05/21/20 16:37:00 EDT Start Date: 05/21/20 Status: Ordered triamcinolone 0.1% topical cream 1 application, Topically, 3 times a day, # 30 Gm, 2 Refills, Acute 11/16/22 16:49:00 EST, 11/16/21 16:49:00 EST, Cream, [facility]/pharmacy #[id number], Partial fill upon patient request if [...]
--- OUTSIDE RECORDS SUMMARY | 2024-08-23 08:31 | XMS_ITS | Continuity of Care Document ---
Author Organization [facility] [employer] Address [address] [place] [address], [address] [address]- Care Team Providers Care Medical Review Coordinator Name Role Phone Joey Argueta MD, Gloria Chavez Primary Care Physician Encounter [facility] [place] [facility] Date(s): 11/17/21 - 01/23/22 [facility] [employer] [facility] [facility] [address] [facility], 4th [place] [address]- Attending Physician: Rocky HARRIS [OB], Tracy Giraldo Allergies, Adverse Reactions, Alerts No Known Allergies Immunizations Given and Recorded Vaccine Date Status Refusal Reason tetanus/diphtheria/pertussis, acel(Tdap) 12/03/21 Given influenza virus vaccine, inactivated 12/03/21 Give n Medications acetaminophen 325 mg oral tablet 650 mg, By Mouth, Every 4 hours, PRN, (1-3), may give 325mg per patient preference and re-dose [id number] within 4 hours, if needed. Patient should [...] 01/11/22 13:25:00 EST, Route to Pharmacy Electronically, [facility]/pharmacy #[id number], Partial fill upon patient request if the prescription is for a schedule II opioid drug.,... Start Date: 01/11/22 Status: Ordered Multivitamins By Mouth, Daily, 0 Refills, Maintenance, 05/21/20 16:37:00 EDT Start Date: 05/21/20 Status: Ordered triamcinolone 0.1% topical cream 1 application, Topically, 3 times a day, # 30 Gm, 2 Refills, Acute 11/16/22 16:49:00 EST, 11/16/21 16:49:00 EST, Cream, [facility]/pharmacy #[id number], Partial fill upon patient request [...]
--- OUTSIDE RECORDS SUMMARY | 2024-08-23 08:31 | XMS_ITS | Continuity of Care Document ---
Author Organization [facility] ter Address [address] [place] [address]- Care Team Providers Care Senior Support Engineer Name Role Phone Joey Argueta MD, Gloria Chavez Primary Care Physician [phone] [place] [facility](s[place] 12/01/21 - 01/06/[address] [address] Attending Physician: Rocky HARRIS [OB], Tracy Giraldo Admitting Physician: Rocky HARRIS [OB]Tracy Referring Physician: Rocky HARRIS [OB], Tracy Giraldo Allergies, Adverse Reactions, Alerts No Known Allergies Immunizations Given and Recorded Vaccine Date Status Refusal Reason tetanus/diphtheria/pertussis, acel(Tdap) 12/03/21 Given influenza virus vaccine, inactivated 12/03/21 Give n Medications acetaminophen 325 mg oral tablet 650 mg, By Mouth, Every 4 hours, PRN, (1-3), may give 325mg per patient preference and re-dose [id number] within 4 hours, if needed. Patient should [...] 16:49:00 EST, 11/16/21 16:49:00 EST, Cream, [facility]/pharmacy #[id number], Partial fill upon patient request [...]
--- OUTSIDE RECORDS SUMMARY | 2024-08-23 08:31 | XMS_ITS | Continuity of Care Document ---
Demographics Address [address] [facility] [address] [place] [address] Phone Unavailable Preferred Language so Marital Status Single Mandaen Affiliation None Race Unknown Ethnic Group or Author Organization [facility] [employer] [facility] Address [address] [facility], 4t [place] [address]- Care Team Providers Care Hide Cooking Operator Name Role Phone Joey Argueta MD, Margaret Chavez Primary Care Physician Encounter [facility] [place] Date(s): 05/22/20 - 07/02/20 [facility] [address] [facility], 4th [place] [address]- [facility] Attending Physician: Rocky HARRIS, Tracy Giraldo Allergies, Adverse Reactions, Alerts Substance [...]
--- OUTSIDE RECORDS SUMMARY | 2024-08-23 08:31 | XMS_ITS | Continuity of Care Document ---
Author Organization [facility] [employer] Address [address] [facility], 4t [place] [address]- Care Team Providers Care Invasive Cardiologist Name Role Phone Joey Argueta MD, Gloria Chavez Primary Care Physician [id number] Date(s): 09/17/21 - 10/17/21 [facility] [facility] [address] [facility], 4th Floor [place], [place] [address] Allergies, Adverse Reactions, Alerts Substance Reaction Severity [...]
--- OUTSIDE RECORDS SUMMARY | 2024-08-23 08:31 | XMS_ITS | Continuity of Care Document ---
Author Organization [facility] [employer] [facility] Address [address] [place] [address], [address] [place] [address]- Care Team Providers Care Mailing Jogger Name Role Phone Joey Argueta MD, Gloria Chavez Primary Care Physician Encounter [facility] [place] Date(s): 02/08/22 - 02/15/22 [facility] [employer] [facility] [address] [facility], [address] [place] [address]- Attending Physician: Hermelinda HARRIS, Kaylah Sanchez Referring Physician: Francisco Brock MD Allergies, Adverse Reactions, Alerts No Known Allergies Immunizations Given and Recorded Vaccine Date Status Refusal Reason tetanus/diphtheria/pertussis, acel(Tdap) 12/03/21 Given influenza virus vaccine, inactivated 12/03/21 Give n Medications acetaminophen 325 mg oral tablet 650 mg, By Mouth, Every 4 hours, PRN, (1-3), may give 325mg per patient preference and re-dose [id number] within 4 hours, if needed. Patient should [...] 01/11/22 13:25:00 EST, Route to Pharmacy Electronically, [facility]/pharmacy #[id number], Partial fill upon patient request if the prescription is for a schedule II opioid drug.,... Start Date: 01/11/22 Status: Ordered Multivitamins By Mouth, Daily, 0 Refills, Maintenance, 05/21/20 16:37:00 EDT Start Date: 05/21/20 Status: Ordered triamcinolone 0.1% topical cream 1 application, Topically, 3 times a day, # 30 Gm, 2 Refills, Acute 11/16/22 16:49:00 EST, 11/16/21 16:49:00 EST, Cream, [facility]/pharmacy #[id number], Partial fill upon patient [...] oldest [Reference Range]: 1 Height 160 cm (02/08/22 10:42 AM) Weight 113.63 kg (02/08/22 10:42 AM) Body Mass Index [18.5-24.99] 44.39 *>HHI* (02/08/22 10:42 AM) Blood Pressure [90-138/55-84 mm Hg] 124/ 56mm Hg (02/08/22 10:42 AM) Blood pressure sites Arm, left (02/08/22 10:42 AM) Weight Obtained Via Standing scale (02/08/22 10:42 AM) Social History Social History Type Response Smoking Status Never (less than 100 in lifetime) entered on: 10/01/21 Sex
--- OUTSIDE RECORDS SUMMARY | 2024-08-23 08:31 | XMS_ITS | Continuity of Care Document ---
Author Organization [facility] [employer] Address [address] [facility], 4t [place] [address]- Care Team Providers Care Manager Ambulatory Name Role Phone Joey Argueta MD, Gloria Chavez Primary Care Physician [id number] Date(s): 11/11/21 - 11/18/[address] [facility] [employer] [facility] [address] [facility], 4th [place] [address]- Attending Physician: Kimberly Rincon MD Referring Physician: Kaylah Shen MD Allergies, Adverse Reactions, Alerts Substance Reaction [...] EST, 11/16/21 16:49:00 EST, Cream, [facility]/pharmacy #[id number], Partial fill upon patient request if the [...]
--- OUTSIDE RECORDS SUMMARY | 2024-08-23 08:31 | XMS_ITS | Continuity of Care Document ---
Author Organization [facility] [employer] Address [address] [place] [address], 4t [place] [address]- Care Team Providers Care Contract Designer Name Role Phone Joey Argueta MD, Gloria Chavez Primary Care Physician [place] [facility] Date(s): 12/14/21 - 12/21/21 [facility] [address] [facility], 4th [place] [address]- Attending Physician: Nikki HARRIS, Alyssia Sanchez Referring Physician: Moises Myers MD Allergies, Adverse Reactions, Alerts No Known [...] oldest [Reference Range]: 1 Height 160 cm (12/14/21 10:48 AM) Weight 115.00 kg (12/14/21 10:48 AM) Body Mass Index [18.5-24.99] 44.92 *>HHI* (12/14/21 10:48 AM) Blood Pressure [90-138/55-84 mm Hg] 128/ 52mm Hg (12/14/21 10:48 AM) Blood pressure sites Arm, left (12/14/21 10:48 AM) Weight Obtained Via Standing scale (12/14/21 10:48 AM) Social History Social History Type Response Smoking Status Never (less than 100 in lifetime) entered on: 10/01/21 Sex
--- OUTSIDE RECORDS SUMMARY | 2024-08-23 08:31 | XMS_ITS | Continuity of Care Document ---
Author Organization [facility] Address [address] [place] [address]- Care Team Providers Care Ladle Repairman Name Role Phone Joey Argueta MD, Gloria Chavez Primary Care Physician En[facility] [id number] Date(s): 11/02/21 - 12/02/21 [facility] [address] [place] [address] Attending Physician: Sergey Huang Admitting Physician: Admtr, Sergey Referring Physician: Admtr, Ar8 Allergies, Adverse Reactions, Alerts No Known Allergies Medications metFORMIN 500 mg oral tablet 1 [...] 16:49:00 EST, 11/16/21 16:49:00 EST, [facility], [id number], Partial fill upon patient request if the [...]
--- OUTSIDE RECORDS SUMMARY | 2024-08-23 08:32 | XMS_ITS | Continuity of Care Document ---
Author Organization [facility] [employer] Address [address] [place] [address], 4[place] [address]- Care Team Providers Care Food Quality Technician Name Role Phone Joey Argueta MD, Gloria Chavez Primary Care Physician [id number] Date(s): 09/28/21 - 11/28/21 [facility] [employer] [facility] [address] [facility], 4th [place] [address]- Attending Physician: Shannon HARRIS, Aaron Sanchez Allergies, Adverse Reactions, Alerts No Known [...] 16:49:00 EST, 11/16/21 16:49:00 EST, Cream, [facility]/pharmacy #[id number], Partial fill upon patient request if the [...]
--- OUTSIDE RECORDS SUMMARY | 2024-08-23 08:32 | XMS_ITS | Continuity of Care Document ---
Author Organization [facility] [employer] Address [address] [facility], 4[address] [place] [address]- Care Team Providers Care Chemical Packager Name Role Phone Joey Argueta MD, Gloria Chavez Primary Care Physician [id number] Date(s): 11/17/21 - 01/30/22 [facility] [employer] [facility] [address] [facility], [address] [place] [address]- Attending Physician: Rocky HARRIS [OB], Tracy Giraldo Allergies, Adverse Reactions, Alerts No Known Allergies Immunizations Given and Recorded Vaccine Date Status Refusal Reason tetanus/diphtheria/pertussis, acel(Tdap) 12/03/21 Given influenza virus vaccine, inactivated 12/03/21 Give n Medications acetaminophen 325 mg oral tablet 650 mg, By Mouth, Every 4 hours, PRN, (1-3), may give 325mg per patient preference and re-dose [id number] within 4 hours, if needed. Patient should [...] device, 12/14/21 11:23:00 EST, Supply, 160, cm, 01/31/22 10:48:00 EST, Height, 115, kg, 11/16/21 16:55:00 EST, Dry Weight Start Date: 12/14/21 Status: Ordered Plan B One-Step 1.5 mg oral tablet 1.5 mg, 1, tablet, By Mouth, Once, # 1 tablet, Refills 0, Tot. Refills 0, Soft Stop, 01/11/22 13:25:00 EST, Route to Pharmacy Electronically, [facility]/pharmacy #[id number], Partial fill upon patient request if the prescription is for a schedule II opioid drug.,... Start Date: 01/11/22 Status: Ordered Multivitamins By Mouth, Daily, 0 Refills, Maintenance, 05/21/20 16:37:00 EDT Start Date: 05/21/20 Status: Ordered triamcinolone 0.1% topical cream 1 application, Topically, 3 times a day, # 30 Gm, 2 Refills, Acute 11/16/22 16:49:00 EST, 11/16/21 16:49:00 EST, Cream, [facility]/pharmacy #[id number], Partial fill upon patient request if [...]
--- OUTSIDE RECORDS SUMMARY | 2024-08-23 08:32 | XMS_ITS | Continuity of Care Document ---
Author Organization [facility] ter Address [address] [place] [address]- Care Team Providers Care Ink Printer Name Role Phone Joey Argueta MD, Gloria Chavez Primary Care Physician [place] [facility] [place] Date(s): 11/26/21 - 01/27/[address] [address] Attending Physician: Francisco Brock MD Referring Physician: Rocky HARRIS [OB], Tracy Giraldo Allergies, Adverse Reactions, Alerts No Known Allergies Immunizations Given and Recorded Vaccine Date Status Refusal Reason tetanus/diphtheria/pertussis, acel(Tdap) 12/03/21 Given influenza virus vaccine, inactivated 12/03/21 Give n Medications acetaminophen 325 mg oral tablet 650 mg, By Mouth, Every 4 hours, PRN, (1-3), may give 325mg per patient preference and re-dose [id number] within 4 hours, if needed. Patient should [...]
--- OUTSIDE RECORDS SUMMARY | 2024-08-23 08:32 | XMS_ITS | Continuity of Care Document ---
Author Organization [facility] [employer] Address [address] [place] [address], [address] [address]- Care Team Providers Care Hat Binder Name Role Phone Joey Argueta MD, Gloria Chavez Primary Care Physician [phone] Encounter [facility] Date(s): 12/24/21 - 12/31/21 [facility] [employer] [facility] [address] [facility], [address] [place] [address]- Attending Physician: Louis HARRIS, Moises Issa Referring Physician: Nikki HARRIS, Alyssia Sanchez Allergies, Adverse Reactions, Alerts No Known Allergies Immunizations Given and Recorded Vaccine Date Status Refusal Reason tetanus/diphtheria/pertussis, acel(Tdap) 12/03/21 Given influenza virus vaccine, inactivated 12/03/21 Give n Medications acetaminophen 325 mg oral tablet 650 mg, By Mouth, Every 4 hours, PRN, (1-3), may give 325mg per patient preference and re-dose [id number] within 4 hours, if needed. Patient should [...] oldest [Reference Range]: 1 Height 160 cm (12/24/21 1:19 PM) Weight 115.00 kg (12/24/21 1:19 PM) Body Mass Index [18.5-24.99] 44.92 *>HHI* (12/24/21 1:19 PM) Blood Pressure [90-138/55-84 mm Hg] 122/ 68mm Hg (12/24/21 1:19 PM) Blood pressure sites Arm, left (12/24/21 1:19 PM) Weight Obtained Via Standing scale (12/24/21 1:19 PM) Social History Social History Type Response Smoking Status Never (less than 100 in lifetime) entered on: 10/01/21 Sex
--- OUTSIDE RECORDS SUMMARY | 2024-08-23 08:32 | XMS_ITS | Continuity of Care Document ---
Author Organization [facility] [employer] Address [address] [facility], 4t [place] [address]- Care Team Providers Care Spring Assembler Supervisor Name Role Phone Joey Argueta MD, Margaret Chaevz Primary Care Physician [place] [facility] Date(s): 06/09/20 - 07/09/20 [facility] [address] [facility], [address]th [place] [address]- [facility] Allergies, Adverse Reactions, Alerts Substance Reaction Severity [...]
--- OUTSIDE RECORDS SUMMARY | 2024-08-23 08:32 | XMS_ITS | Continuity of Care Document ---
Author Organization [facility] [employer] Address [address] [facility], 4t [place] [address]- Care Team Providers Care Tenoner Operator Name Role Phone Joey Argueta MD, Gloria Chavez Primary Care Physician [phone] [id number] Date(s): 11/26/21 - 12/03/21 [facility] [employer] [facility] [address] [facility], 4th [place] [address]- Attending Physician: Rocky HARRIS [OB], Tracy Giraldo [...] 16:49:00 EST, 11/16/21 16:49:00 EST, Cream, [id number], Partial fill upon patient request if the [...]
--- OUTSIDE RECORDS SUMMARY | 2024-08-23 08:32 | XMS_ITS | Continuity of Care Document ---
Author Organization [facility] [employer] Address [address] [place] [address], 4[address] [place] [address]- Care Team Providers Care Circular Head Saw Operator Name Role Phone Joey Argueta MD, Gloria Chavez Primary Care Physician [place] [facility] [place] Date(s): 11/17/21 - 01/09/22 [facility] [address] [facility], [address] [place] [address]- Attending Physician: Moises Myers MD Referring Physician: Rocky HARRIS [OB], Tracy Giraldo Allergies, Adverse Reactions, Alerts No Known Allergies Immunizations Given and Recorded Vaccine Date Status Refusal Reason tetanus/diphtheria/pertussis, acel(Tdap) 12/03/21 Given influenza virus vaccine, inactivated 12/03/21 Give n Medications acetaminophen 325 mg oral tablet 650 mg, By Mouth, Every 4 hours, PRN, (1-3), may give 325mg per patient preference and re-dose [id number] within 4 hours, if needed. Patient should [...] 11/16/22 16:49:00 EST, 11/16/21 16:49:00 EST, Cream, [facility]/pharmacy #[id number], Partial fill upon patient request [...]
--- OUTSIDE RECORDS SUMMARY | 2024-08-23 08:32 | XMS_ITS | Continuity of Care Document ---
Author Organization [facility] [employer] Address [address], [address] [place] [address]- Care Team Providers Care Racing Board Marker Name Role Phone Joey Argueta MD, Gloria Chavez Primary Care Physician [phone] [place] [facility] [place] 12/14/21 - 01/13/22 [facility] [address], [address]th [place] [address]- Allergies, Adverse Reactions, Alerts No Known Allergies Immunizations Given and Recorded Vaccine Date Status Refusal Reason tetanus/diphtheria/pertussis, acel(Tdap) 12/03/21 Given influenza virus vaccine, inactivated 12/03/21 Give n Medications acetaminophen 325 mg oral tablet 650 mg, By Mouth, Every 4 hours, PRN, (1-3), may give 325mg per patient preference and re-dose [id number] within 4 hours, if needed. Patient should [...] 01/11/22 13:25:00 EST, Route to Pharmacy Electronically, [facility]/pharmacy #[id number], Partial fill upon patient request if the prescription is for a schedule II opioid drug.,... Start Date: 01/11/22 Status: Ordered Multivitamins By Mouth, Daily, 0 Refills, Maintenance, 05/21/20 16:37:00 EDT Start Date: 05/21/20 Status: Ordered triamcinolone 0.1% topical cream 1 application, Topically, 3 times a day, # 30 Gm, 2 Refills, Acute 11/16/22 16:49:00 EST, 11/16/21 16:49:00 EST, Cream, [facility]/pharmacy #[id number], Partial fill upon patient request if [...]
--- OUTSIDE RECORDS SUMMARY | 2024-08-23 08:32 | XMS_ITS | Continuity of Care Document ---
Author Organization [facility] [employer] Address [address], [address] [place] [address]- Care Team Providers Care System Trainer Name Role Phone Joey Argueta MD, Gloria Chavez Primary Care Physician [phone] Encounter [facility] [place] Date(s): 01/11/22 - 02/10/22 [facility] [employer] [facility] [address], [address] [place] [address]- Allergies, Adverse Reactions, Alerts No Known Allergies Immunizations Given and Recorded Vaccine Date Status Refusal Reason tetanus/diphtheria/pertussis, acel(Tdap) 12/03/21 Given influenza virus vaccine, inactivated 12/03/21 Give n Medications acetaminophen 325 mg oral tablet 650 mg, By Mouth, Every 4 hours, PRN, (1-3), may give 325mg per patient preference and re-dose [id number] within 4 hours, if needed. Patient should [...] 01/11/22 13:25:00 EST, Route to Pharmacy Electronically, [facility]/pharmacy #[id number], Partial fill upon patient request if the prescription is for a schedule II opioid drug.,... Start Date: 01/11/22 Status: Ordered Multivitamins By Mouth, Daily, 0 Refills, Maintenance, 05/21/20 16:37:00 EDT Start Date: 05/21/20 Status: Ordered triamcinolone 0.1% topical cream 1 application, Topically, 3 times a day, # 30 Gm, 2 Refills, Acute 11/16/22 16:49:00 EST, 11/16/21 16:49:00 EST, Cream, [facility]/pharmacy #[id number], Partial fill upon patient [...]
--- OUTSIDE RECORDS SUMMARY | 2024-08-23 08:32 | XMS_ITS | Continuity of Care Document ---
Author Organization [facility] ter Address [address] [place] [address]- Care Team Providers Care Tax Audit Manager Name Role Phone Joey Argueta MD, Gloria Chavez Primary Care Physician [phone] [place] [facility] [place] 12/08/21 - 01/13/[address] [address] Attending Physician: Rocky HARRIS [OB], Tracy [...] give 325mg per patient preference and re-dose [id number] within 4 hours, if needed. Patient should [...]
--- OUTSIDE RECORDS SUMMARY | 2024-08-23 08:32 | XMS_ITS | Continuity of Care Document ---
Author Organization [facility] [employer] [facility] Address [address], [address] [place] [address]- Care Team Providers Care Assistant Womens Volleyball Coach Name Role Phone Joey Argueta MD, Margaret Chavez Primary Care Physician En[place] [facility] [place] Date(s): 06/12/20 - 07/12/20 [facility] [facility] [address], [address] [place] [address]- [facility] Attending Physician: Sergey Huang Admitting Physician: Admtr, Sergey Referring Physician: Admtr, Ar8 Allergies, Adverse Reactions, Alerts Substance Reaction Severity [...]
--- OUTSIDE RECORDS SUMMARY | 2024-08-23 08:32 | XMS_ITS | Continuity of Care Document ---
Author Organization [facility] n[facility] Address [address] [place] [address]- Care Team Providers Care Auger Mill Operator Name Role Phone Joey Argueta MD, Margaret Chavez Primary Care Physician [place] [facility] [place] - 06/[place]/20 [facility] [address] [address]- [facility] Allergies, Adverse Reactions, Alerts Substance Reaction Severity [...]
--- OUTSIDE RECORDS SUMMARY | 2024-08-23 08:32 | XMS_ITS | Continuity of Care Document ---
Author Organization [facility] [email or web address] Address [address], [address] [place] [address]- Care Team Providers Care Life Skills Coordinator Name Role Phone Joey Argueta MD, Gloria Chavez Primary Care Physician [phone] [id number] Date(s): 11/16/21 - 11/23/21 [facility] [email or web address] [facility] [address], [address] [place] [address]- Attending Physician: Rocky HARRIS [OB], Tracy Giraldo Referring Physician: Hermelinda HARRIS, Kaylah Sanchez Allergies, Adverse Reactions, Alerts Substance Reaction [...] 11/16/22 16:49:00 EST, 11/16/21 16:49:00 EST, Cream, [facility]/pharmacy #[id number], Partial fill upon patient request if the [...] oldest [Reference Range]: 1 Height 160 cm (11/16/21 4:55 PM) Weight 115 kg (11/16/21 4:55 PM) Body Mass Index [18.5-24.99] 44.92 *>HHI* (11/16/21 4:55 PM) Blood Pressure [90-138/55-84 mm Hg] 128/ 63mm Hg (11/16/21 4:55 PM) Blood pressure sites Arm, right (11/16/21 4:55 PM) Dry Weight 115 kg (11/16/21 4:55 PM) Weight Obtained Via Standing scale (11/16/21 4:55 PM) Dry Weight Obtained Via Standing scale (11/16/21 4:55 PM) Social History Social History Type Response Smoking Status Never (less than 100 in lifetime) entered on: 10/01/21 Sex
--- OUTSIDE RECORDS SUMMARY | 2024-08-23 08:32 | XMS_ITS | Continuity of Care Document ---
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
[2024-08-23 11:23] VITALS: BP 138/69; PULSE 84; RESP 16; TEMP 36.4; O2SAT 100; BMI 45.2
[2024-08-23 11:27] LABS: UPreg QC Valid YES; Urine Pregnancy NEGATIVE (NEGATIVE)
[2024-08-23] MEDS: Lactated Ringers 1,000 ML 80 ML IVCONT (11:42)
--- NOTE | 2024-08-23 12:17 | MHC.SHP ---
Pre-Procedural Eval Section A - 24 Hr Update-Section A only Date of Service: 08/23/24 The patient is an INPATIENT: No The patient has been examined within 24 hours of the surgical procedure. The History & Physical has been completed within 30 days and I have reviewed it.: Yes Section B - Complete if H&P > 30 days Chief Complaint: Morbid (severe) obesity due to excess calories Details of Present Illness: Anemia Relevant Family History (Specify if Yes): No Relevant Social History: None Present Medications: None Medical History: No relevant PMH History of Previous Operations: No relevant previous surgery Allergies: Allergies Allergy/AdvReac Type Severity Reaction Status Date / Time No Known Allergies Allergy Verified 08/23/24 11:28 [No Known Allergies*] Review of Systems Sugical H&P ROS: Negative: Constitution, Cardiovascular, Respiratory, Neurological, Psychiatric, Hem-Onc, Allergic/Immunologic, Gastrointestinal, Genitourinary, Musculoskeletal, Integumentary, Endocrine and Eyes/Ears/Nose/Throat Exam Surgical H&P Exam: Normal: HEENT, Normal: Heart, Normal: Lungs, Normal: Extremities, Normal: Abdomen, Normal: Skin and Normal: Neurological Plan Diagnosis/Plan: Unchanged (EGD to assess etiology of anemia. Risks of bleeding and perforation were discussed with the patient and she is in agreement with the plan.) I have reviewed the history and physical and performed a pertinent physical examination on my patient. No changes have occurred unless specified. Time Spent With Patient Time: Total time managing care of this patient today ____ minutes.
--- NOTE | 2024-08-23 12:25 | P.BOP_ITS ---
Brief Operative Note Date of Service: 08/23/24 Pre-op diagnosis: Anemia Post-op diagnosis: same Procedure: PROCEDURE DATE: 08/23/2024 PREOPERATIVE DIAGNOSIS: Anemia POSTOPERATIVE DIAGNOSIS: ?Same as above. 1) normal endoscopy PROCEDURE: Uwxdorxj-ejodby-afmyxawinaug with biopsies Surgeon: Poncho Oshea M.D.. Ph.D. [employer] Certified Network Professional: None ? Anesthesia: IV sedation Estimated blood loss: ?Minimal FINDINGS AND PROCEDURE: ? OPERATIVE INDICATIONS: ?The patient is a 34 year old female known to me who is interested in bariatric surgery. The patient has anemia. Based on this information I recommended an upper endoscopy to evaluate the patient's symptoms. Risks and complications of the surgery were discussed with the patient in advance particularly the possibility of perforation or bleeding that may require surgical intervention. The patient understood the risks and was in agreement with the plan. ? PROCEDURE: After informed consent was obtained by the patient, the patient was ?transferred to the Operating Room and was placed in the supine position.? After successful induction of IV sedation, a mouth block was inserted and the patient was placed in the left lateral decubitus position. An upper endoscopy was performed next, the oropharynx and esophagus appeared within the normal limits. There was no hiatal hernia. The z-line was smooth. Two biopsies were obtained from the distal esophagus 2-3 cm proximal to the GE junction and two additional biopsies from the GE junction. The stomach was entered and it appeared to be of normal size. There was no gastritis. There was no stricture or ulcer. A biopsy was obtained from the gastric fundus and the antrum. No significant bleeding was noted from any of the biopsy sites. Retroflexion of the scope revealed a normal GE junction. The scope was then advanced into the duodenum which appeared to be normal as well. At that point the duodenum ?and the stomach were decompressed and the scope was withdrawn from the patient's mouth. The patient extubated and was transferred in stable condition to the Recovery Room for further care. I was present and performed all steps of the procedure. There were no residents to assist with this case. Peewee Oshea M.D., Ph.D. Surgeon: Justin Oshea MD Was an [employer] Certified Network Professional used for this Procedure?: No Estimated blood loss (mL): 0 IV fluids (mL): 400 Urine output (mL): 0 (No Miner to record output) Pathology: other (1) antrum x1, 2) fundus x1, 3) GE junction x2, 4) distal esophagus x2) Condition: stable Disposition: PACU
[2024-08-23 13:36] VITALS: BP 123/71; PULSE 83; RESP 12; TEMP 36.7; O2SAT 100
[2024-08-23 13:40] VITALS: BP 137/78; PULSE 81; RESP 16; O2SAT 99
[2024-08-23 13:45] VITALS: BP 144/86; PULSE 92; RESP 16; O2SAT 98
[2024-08-23 13:50] VITALS: BP 153/98; PULSE 95; RESP 16; O2SAT 98
[2024-08-23 14:04] VITALS: BP 154/89; PULSE 83; RESP 20; TEMP 36.4; O2SAT 98
== END 2024-08-23 14:32 | disposition home or self-care (01) ==
PROVIDERS: Nurse Practitioner; PCP Internal Medicine; Visit Provider Surgery
PROC: 0DJ08ZZ Inspection of Upper Intestinal Tract, Via Natural or Artificial Opening Endoscopic (ICD-10-PCS; CPT 43235; principal; 2024-08-23 12:10)
DX: D64.9 Anemia, unspecified (principal); E66.01 Morbid (severe) obesity due to excess calories; Z68.42 Body mass index [BMI] 45.0-49.9, adult; K80.20 Calculus of gallbladder without cholecystitis without obstruction; Z79.899 Other long term (current) drug therapy; Z98.890 Other specified postprocedural states; R20.0 Anesthesia of skin; R20.2 Paresthesia of skin; Z97.3 Presence of spectacles and contact lenses
CPT/HCPCS: 43239; 81025; 88305; 88313; 88342; J1100; J1596; J2003; J2250; J2704

== ENCOUNTER → 2024-08-23 08:28 | Outpatient (BNV) | payer OTHER, SELFPAY | PROVIDERS: PCP Internal Medicine; Visit Provider Surgery | DX: D50.0 Iron deficiency anemia secondary to blood loss (chronic) (principal) | CPT/HCPCS: 43239 ==

== ENCOUNTER 2024-08-24 08:19 | Day surgery (SDC) | payer OTHER, SELFPAY ==
[2024-08-21 14:26] VITALS: BMI 45.5
--- NOTE | 2024-08-22 13:17 | P.CONAN_ITS ---
Documented by User: Azul Turpin NP 08/22/24 13:20 HPI - Anesthesia Eval Consult details Narrative: 34yo F for D&C Hysteroscopy,possible myomectomy,possible polypectomy,IUD REMOVAL BMI 45 EGD 08/23/24 PMFSH Active Problems Active Problems: All Active Problems PCOS (polycystic ovarian syndrome) (Acute) Abnormal EKG (Acute) BPPV (benign paroxysmal positional vertigo) (Acute) Morbid obesity (Acute) Abnormal uterine bleeding (AUB) (Acute) Well woman exam (Acute) Dizziness (Acute) Iron (Fe) deficiency anemia (Acute) Screening for cervical cancer (Acute) Encounter for assessment (Acute) History of gestational diabetes (Acute) History of unprotected sex (Acute) Carpal tunnel syndrome of right wrist (Acute) Sciatica of left side (Acute) Screening for diabetes mellitus (DM) (Acute) (Acute) Encounter for screening for malformation using ultrasound (Acute) History of gestational diabetes mellitus (GDM) in prior , currently (Acute) Elevated glucose tolerance test (Acute) Obesity, morbid, BMI 40.0-49.9 (Acute) Gestational diabetes mellitus (GDM) affecting , antepartum (Acute) Gestational diabetes mellitus (GDM) affecting , antepartum (Acute) Biliary colic (Acute) Physical exam (Acute) Wheezing (Acute) History of gestational diabetes mellitus (GDM) (Acute) Generalized rash (Acute) Iron deficiency anemia (Acute) Cholelithiasis (Acute) Gallstones (Acute) Numbness and tingling in right hand (Acute) Past Medical History Medical History Wears contact lenses Gallstones Numbness and tingling in right hand Gestational diabetes Scalp cyst Miscarriage History of chicken pox Obesity Family History Family History Father High cholesterol CVD (cardiovascular disease) Mother HTN (hypertension) Maternal Grandmother Chronic mental illness ETOHism Maternal Aunt Asthma Paternal Aunt Diabetes mellitus Other Mental health disorder Family history of problems with anesthesia: No Surgical History Surgical History History of cholecystectomy Hx of removal of cyst History of tonsillectomy History of Problems with Anesthesia: No Social History Social History Household Members: Children Both parents involved: Yes Housing: Apartment Are you a primary vocational childcare teacher to a significant other at home: No Do you presently have visiting nurse or other home services: No Alcohol intake: former Patient Tobacco Use Status: Never used Tobacco e-Cigarette/Vaping Use: Never Used Second Hand Smoke Exposure: No Special jony needs: No Agree to transfusion: Yes service: No Current occupational status: employed Current occupational exposures/hazards: No Sexual orientation: Straight/Heterosexual Gender identity: Female Cognitive needs: No Hearing needs: No Vision needs: Yes (contacts) Meds Allergies Allergy/AdvReac Type Severity Reaction Status Date / Time No Known Allergies Allergy Verified 08/23/24 11:28 [No Known Allergies*] Exam Height,Weight and Vital Signs: Height 5 ft 3 in Weight 116.573 kg Narrative Narrative: EKG 2023 Vent. Rate : 065 BPM Atrial Rate : 065 BPM P-R Int : 172 ms QRS Dur : 106 ms QT Int : 406 ms P-R-T Axes : 030 023 013 degrees QTc Int : 422 ms Normal sinus rhythm Incomplete right bundle branch block Borderline ECG When compared with ECG of 28-JAN-2022 18:24, No significant change was found ECHO 2023 Conclusions: - Low normal LV ejection fraction of 50-55% with otherwise normal study Assessment and Plan Assessment Anesthesia Assessment: Chart Reviewed Final Anesthetic Review Family History of Problems with Anesthesia: No History of Problems with Anesthesia: No Documented by User: Margret Freitas MD 08/23/24 11:44 PMFSH Past Medical History Medical History Wears contact lenses Gallstones Numbness and tingling in right hand Gestational diabetes Scalp cyst Miscarriage History of chicken pox Obesity Family History Family History Father High cholesterol CVD (cardiovascular disease) Mother HTN (hypertension) Maternal Grandmother Chronic mental illness ETOHism Maternal Aunt Asthma Paternal Aunt Diabetes mellitus Other Mental health disorder Surgical History Surgical History History of cholecystectomy Hx of removal of cyst History of tonsillectomy Social History Social History Household Members: Children Both parents involved: Yes Housing: Apartment Are you a primary vocational childcare teacher to a significant other at home: No Do you presently have visiting nurse or other home services: No Alcohol intake: former Patient Tobacco Use Status: Never used Tobacco e-Cigarette/Vaping Use: Never Used Second Hand Smoke Exposure: No Special jony needs: No Agree to transfusion: Yes service: No Current occupational status: employed Current occupational exposures/hazards: No Sexual orientation: Straight/Heterosexual Gender identity: Female Cognitive needs: No Hearing needs: No Vision needs: Yes (contacts) Meds Allergies Allergy/AdvReac Type Severity Reaction Status Date / Time No Known Allergies Allergy Verified 08/23/24 11:28 [No Known Allergies*] Exam Airway Mallampati Class: III TM Dist: <=3cm Neck ROM: Full Heart: rrr Lungs: cta Assessment and Plan Assessment Anesthesia Assessment: Anesthesia Plan Discussed Final Anesthetic Review NPO: Yes ASA Class: III Final Preanesthetic Review: No Changes in Pt Med Stat, Meds/Allgs Chart Reviewed, Consent Obtained/Reviewed and Anes Risks/Benef Reviewed Patient Risk: Intermediate Procedure Risk: Low Anesthetic Plan Anesthetic Plan: MAC: Disposition: Standard PACU
[2024-08-24 08:32] VITALS: BP 136/86; PULSE 89; RESP 19; TEMP 36.4; O2SAT 97; BMI 45.5
[2024-08-24] MEDS: Lactated Ringers 1,000 ML 50 ML IVCONT (08:53)
--- NOTE | 2024-08-24 09:03 | MHC.SHP ---
Pre-Procedural Eval Section A - 24 Hr Update-Section A only Date of Service: 08/24/24 The patient is an INPATIENT: No Changes since office visit: No Cold of Flu in the past 2 weeks, No New Medical Problems, No Changes in Medication and No Patient answered all questions The patient has been examined within 24 hours of the surgical procedure. The History & Physical has been completed within 30 days and I have reviewed it.: Yes Section B - Complete if H&P > 30 days Chief Complaint: Abnormal uterine and vaginal bleeding, Allergies: Allergies Allergy/AdvReac Type Severity Reaction Status Date / Time No Known Allergies Allergy Verified 08/23/24 11:28 [No Known Allergies*] Plan Diagnosis/Plan: Unchanged I have reviewed the history and physical and performed a pertinent physical examination on my patient. No changes have occurred unless specified. Time Spent With Patient Time: Total time managing care of this patient today ____ minutes.
--- NOTE | 2024-08-24 10:42 | PM.OP ---
Brief Operative Note Date of Service: 08/24/24 Pre-op diagnosis: Abnormal uterine bleeding, endometrial polyp on EMB pathology, requesting ParaGard IUD removed Post-op diagnosis: same (Endometrial polyp) Procedure: ParaGard IUD removal, Hysteroscopy D&C, Polypectomy Surgeon: Kevin Eng MD Anesthesia: GLMA Was an Edge Banding Machine Offbearer used for this Procedure?: No Estimated blood loss (mL): 0 Pathology: other (Endometrial Scrapping. Polyp. ParaGard IUD) Condition: stable Disposition: PACU
--- NOTE | 2024-08-24 10:43 | P.OP_ITS ---
Operative Note Operative Note Date of Service: 08/24/24 Narrative: Preop Diagnosis: Abnormal uterine bleeding, Endometrial polyp on EMB pathology, requesting ParaGard IUD removal Operation: ParaGard IUD removal, Diagnostic Hysteroscopy, Dilataion & Curettage and polypectomy Post Op Diagnosis: Endometrial Polyp QBL: Minimal Anesthesia: GLMA Surgeon: Kevin Eng MD [place] Shoe Examiner: None Complication: None Pathology: Endometrial Scrapings, Endometrial polyp, ParaGard IUD Procedure: The patient was put in the dorsal lithotomy position, scrubbed, and draped in the usual manner. A sterile speculum was inserted in the patient's vagina. The anterior lip of the cervix was grasped with a single tooth tenaculum. ParaGard IUD string was seen, using a long Mohini clamp the ParaGard IUD was removed without any complication. The cervix was then dilated up to 5 mm, then the scope was inserted in the patient's uterus. Inspection revealed endometrial polyp. The Myosure Reach device was used; it was introduced through the operative channel and polypectomy done with no complications. The scope was then taken out from the uterine cavity, sharp curettings was carried on with minimal to moderate amount of tissues retrieved. At the end of the procedure, all instruments were taken out of the patient uterine and vaginal cavity. The single tooth tenaculum was removed and homeostasis was assured using pressure,. The patient tolerated the procedure well and was transferred to the PACU in a s table condition.
[2024-08-24 10:45] VITALS: BP 145/81; PULSE 70; RESP 16; TEMP 36.6; O2SAT 100
[2024-08-24 10:50] VITALS: BP 131/71; PULSE 65; RESP 18; O2SAT 98
[2024-08-24 10:55] VITALS: BP 121/54; PULSE 56; RESP 18; O2SAT 98
[2024-08-24 11:00] VITALS: BP 121/59; PULSE 68; RESP 16; O2SAT 99
[2024-08-24 11:15] VITALS: BP 107/66; PULSE 68; RESP 16; TEMP 36.5; O2SAT 100
== END 2024-08-24 11:39 | disposition home or self-care (01) ==
PROVIDERS: PCP Internal Medicine; Visit Provider Obstetrics & Gynecology
PROC: 0UDB8ZZ Extraction of Endometrium, Via Natural or Artificial Opening Endoscopic (ICD-10-PCS; CPT 58558; principal; 2024-08-24 10:30)
DX: N93.9 Abnormal uterine and vaginal bleeding, unspecified (principal); N84.0 Polyp of corpus uteri; E28.2 Polycystic ovarian syndrome; Z30.432 Encounter for removal of intrauterine contraceptive device; E66.9 Obesity, unspecified; Z68.42 Body mass index [BMI] 45.0-49.9, adult; Z97.3 Presence of spectacles and contact lenses; Z79.899 Other long term (current) drug therapy; Z98.890 Other specified postprocedural states
CPT/HCPCS: 58558; 58301; 88300; 88305; 88341; 88342; 88360; J1885; J2003; J2405; J2704; J3010

== ENCOUNTER → 2024-08-24 08:19 | Outpatient (BNV) | payer OTHER, SELFPAY | PROVIDERS: PCP Internal Medicine; Visit Provider Obstetrics & Gynecology | DX: N84.0 Polyp of corpus uteri (principal); Z30.432 Encounter for removal of intrauterine contraceptive device | CPT/HCPCS: 58301; 58558 ==

== ENCOUNTER 2024-09-06 11:07 | Outpatient (AMB) | payer OTHER, SELFPAY ==
--- NOTE | 2024-09-06 11:09 | MHC.OFFVIS ---
Intake Visit Reasons: post op Allergies No Known Allergies [No Known Allergies*] Allergy (Verified 08/23/24 11:28) HPI Comments Details: The patient is presenting post hysteroscopy D&C , IUD removal , no complaints minimal vaginal bleeding no feverishness chills or abdominal pain. The pathology showed the following: A. Intrauterine device (removal): Intrauterine device identified; macroscopic description only. B. Endometrium, curettage: Benign late secretory endometrium, with focal poorly-developed glands and few fragments suggestive of placental site nodule, and focal benign endocervical glandular mucosa; no atypia or carcinoma. C. Endometrial polyp, resection: Polypoid fragments of benign late secretory endometrium, may represent benign functional polyp; no atypia or carcinoma The patient is started on control pills and since then her menstrual cycle has been regular with no complaints PFSH Medical History Wears contact lenses Gallstones Numbness and tingling in right hand Gestational diabetes Scalp cyst Miscarriage History of chicken pox Obesity Surgical History History of cholecystectomy Hx of removal of cyst History of tonsillectomy Family History Father High cholesterol CVD (cardiovascular disease) Mother HTN (hypertension) Maternal Grandmother Chronic mental illness ETOHism Maternal Aunt Asthma Paternal Aunt Diabetes mellitus Other Mental health disorder Social History Household Members: Children Both parents involved: Yes Housing: Apartment Are you a primary children's zoo caretaker to a significant other at home: No Do you presently have visiting nurse or other home services: No Alcohol intake: former Patient Tobacco Use Status: Never used Tobacco e-Cigarette/Vaping Use: Never Used Second Hand Smoke Exposure: No Special jony needs: No Agree to transfusion: Yes service: No Current occupational status: employed Current occupational exposures/hazards: No Sexual orientation: Straight/Heterosexual Gender identity: Female Cognitive needs: No Hearing needs: No Vision needs: Yes (contacts) Female Reproductive History Menstrual Age of Menarche: 15 Review of Systems Const All systems reviewed & are unremarkable except as noted in HPI and below Reports as per HPI and Reports no additional complaints GI Reports no additional complaints Reports no additional complaints Telehealth Telehealth Telehealth Platform: Telephone Location of provider rendering services: practice address Location of patient: address on file Patient Identification confirmed using: Name, : Yes Telehealth method: video Patient verbally consented to treatment: Yes Patient verbally consented to billing insurance company: Yes Patient informed of any privacy concerns related to visit: Yes Assessment & Plan Assessment & Plan (1) Abnormal uterine bleeding (AUB): Comment: With hirsutism Endometrial polyp on EMB pathology Placenta site nodule on D&C pathology Code(s): N93.9 - Abnormal uterine and vaginal bleeding, unspecified Category: Medical Plan: Iron sulfate 325 mg p.o. q.d.. Repeat CBC. Explained to the patient the results the pathology intraoperative findings. Instructions given the patient to stay on control pills and call in case of bleeding is heavy and to schedule a 3 month follow-up appointment. will check CBC and treat accordingly. All questions answered, the patient verbalized understanding. I spent a total of 20 minutes reviewing the chart, talking to the patient via video and documenting in the medical record. Orders: Orders Complete Blood Count Auto Diff Today N93.9 - Abnormal uterine and vaginal bleeding, unspecified Coding Level of Care Code Tele Est Pt Level 1 (58641) Diagnoses Abnormal uterine bleeding (AUB) N93.9
== END 2024-09-06 13:59 | disposition home or self-care (01) ==
LOC: HO.HWS 11:07
PROVIDERS: PCP Internal Medicine; Visit Provider Obstetrics & Gynecology
DX: N93.9 Abnormal uterine and vaginal bleeding, unspecified (principal)
CPT/HCPCS: 99213

== ENCOUNTER → 2024-09-06 11:07 | Outpatient (BNVA) | payer OTHER, SELFPAY | PROVIDERS: PCP Internal Medicine; Visit Provider Obstetrics & Gynecology | DX: N93.9 Abnormal uterine and vaginal bleeding, unspecified (principal); Z98.890 Other specified postprocedural states | CPT/HCPCS: 99212 ==

== ENCOUNTER 2024-11-01 10:33 | Outpatient (REF) | payer OTHER, SELFPAY ==
[2024-11-01 11:04] LABS: MANUAL DIFF FLAG NO
[2024-11-01 11:49] LABS: Basophils Absolute Auto 0.1 X10*3/uL (0.0-0.2); Basophils Percent Auto 0.6 % (0-2); Eosinophils Absolute Auto 0.1 X10*3/uL (0.0-0.4); Eosinophils Percent Auto 0.7 % (0-4); Hematocrit 34.5 % (37.0-47.0); Hemoglobin 10.5 g/dl (12.0-16.0); Imm Gran Abs Auto 0.03 X10*3/uL (0.00-0.03); Imm Gran Pct Auto 0.3 % (0.0-0.4); Lymphocytes Absolute Auto 2.8 X10*3/uL (1.2-4.9); Lymphocytes Percent Auto 32.7 % (20-40); Mean Corpuscular HGB Conc 30.4 g/dl (31.0-35.0); Mean Corpuscular Hemoglobin 21.6 pg (27.0-33.0); Mean Corpuscular Volume 71.1 fL (80.0-98.0); Mean Platelet Volume 11.4 fL (9.4-12.3); Monocytes Absolute Auto 0.6 X10*3/uL (0.1-1.2); Monocytes Percent Auto 6.6 % (2-11); Neutrophils Absolute Auto 5.1 x10*3/uL (2.0-8.3); Neutrophils Percent Auto 59.1 % (45-73); Platelet Count 308 X10*3/uL (160-400); Red Blood Count 4.85 X10*6/uL (4.20-5.50); Red Cell Distribution Width 16.9 % (11.0-16.0); White Blood Count 8.6 X10*3/uL (4.8-10.8)
== END 2024-11-01 10:34 | disposition home or self-care (01) ==
LOC: HO.LAB 10:33
PROVIDERS: PCP Internal Medicine; Visit Provider Obstetrics & Gynecology
DX: Z30.9 Encounter for contraceptive management, unspecified (principal)
CPT/HCPCS: 36415; 85025; 99212

== ENCOUNTER 2024-11-01 10:33 | Outpatient (AMB) | payer OTHER, SELFPAY ==
[2024-11-01 10:39] VITALS: BP 116/60
--- NOTE | 2024-11-01 10:39 | MHC.OFFVIS ---
Vital Signs 11/01/24 10:39 BP 116/60 Intake Visit Reasons: control follow up Scraper Hand: Scraper Hand Present ([place]) Accompanied by: Self / Same As Patient Allergies No Known Allergies [No Known Allergies*] Allergy (Verified 11/01/24 10:39) HPI Comments Details: Presenting for control pill follow-up with no complaints, regular menstrual cycles light and non crampy. CBC ordered but was not done yet [facility] Medical History Wears contact lenses Gallstones Numbness and tingling in right hand Gestational diabetes Scalp cyst Miscarriage History of chicken pox Obesity Surgical History History of cholecystectomy Hx of removal of cyst History of tonsillectomy Family History Father High cholesterol CVD (cardiovascular disease) Mother HTN (hypertension) Maternal Grandmother Chronic mental illness ETOHism Maternal Aunt Asthma Paternal Aunt Diabetes mellitus Other Mental health disorder Social History Household Members: Children Both parents involved: Yes Housing: Apartment Are you a primary home care provider to a significant other at home: No Do you presently have visiting nurse or other home services: No Alcohol intake: former Patient Tobacco Use Status: Never used Tobacco e-Cigarette/Vaping Use: Never Used Second Hand Smoke Exposure: No Special jnoy needs: No Agree to transfusion: Yes service: No Current occupational status: employed Current occupational exposures/hazards: No Sexual orientation: Straight/Heterosexual Gender identity: Female Cognitive needs: No Hearing needs: No Vision needs: Yes (contacts) Female Reproductive History Menstrual Age of Menarche: 15 Review of Systems Const All systems reviewed & are unremarkable except as noted in HPI and below Reports as per HPI and Reports no additional complaints GI Reports no additional complaints Reports no additional complaints Physical Exam Vital Signs: Last Vital Signs BP 116/60 11/01/24 10:39 Assessment & Plan Assessment & Plan (1) Contraceptive management: Code(s): Z30.9 - Encounter for contraceptive management, unspecified Category: Medical Plan: Instructions given the patient to go to the lab for a repeat CBC to determine indication for to continue iron sulfate or not and stay on control pills. All questions answered, the patient verbalized understanding and agreed with the plan Coding Level of Care Code Est Pt Level 3 (16358) Diagnoses Contraceptive management Z30.9
== END 2024-11-01 10:47 | disposition home or self-care (01) ==
LOC: HO.HWS 10:33
PROVIDERS: PCP Internal Medicine; Visit Provider Obstetrics & Gynecology
DX: Z30.9 Encounter for contraceptive management, unspecified (principal)
CPT/HCPCS: 99213

== ENCOUNTER 2025-03-05 14:22 | Outpatient (AMB) | payer OTHER, SELFPAY ==
--- NOTE | 2025-03-05 14:29 | MHC.PC.OV ---
Vital Signs 03/05/25 14:31 Height 5 ft 3 in Weight 248 lb BMI 43.9 BP 130/72 Blood Pressure Location Lt brachial Position Sitting Intake Visit Reasons: Annual Exam Intake Note: Patient here for an annual physical exam Rubber Stamp Maker Required: No Accompanied by: Self / Same As Patient Allergies No Known Allergies [No Known Allergies*] Allergy (Verified 03/05/25 14:41) Medication List - Last Reconciled 03/05/25 by Gloria Argueta MD albuterol sulfate 90 mcg/actuation 2 inhalations inhalation Q6H cetirizine 10 mg PO DAILY 90 days cholecalciferol (vitamin D3) 125 mcg PO DAILY 90 days cyanocobalamin (vitamin B-12) 500 mcg PO DAILY 90 days desogestrel-ethinyl estradiol 0.15-0.03 mg (Apri) 1 tab PO DAILY 28 days ferrous sulfate 325 mg PO DAILY 90 days vitamin A palmitate 3,000 mcg PO DAILY 90 days Tobacco use date assessed: 03/05/25 Dental Screening Dental Screen Date: 03/05/25 Did you have a dental visit in the last 12 months?: Yes Did you have a dental problem in the last 6 months where you did not have access to dental care?: No Was dental information given to patient?: Patient has dentist HPI HPI Comments History of Present Illness Details The patient is a 34-year-old female presenting for a physical examination. She manages asthma with an inhaler and allergic rhinitis with cetirizine PRN. Her vitamin D and B12 deficiencies are supplemented, alongside her intake of ferrous sulfate for anemia, as highlighted in previous labs. The patient's surgical history includes cholecystectomy, tonsillectomy, and removal of a scalp cyst, with prior gynecological biopsy conducted last year. In the background, her father has hyperlipidemia and heart disease, and her mother has hypertension. She has ceased alcohol consumption and denies experiencing common symptoms like chest pain or shortness of breath. Dissatisfaction with previous weight management communication necessitates reconsideration of her program. - Tetanus vaccine administered a few years ago. - Pap smear conducted last year. - Current supplementation of vitamin D, vitamin B12, and vitamin A. - Plan to reevaluate anemia with upcoming blood tests, focusing on hemoglobin, sugar, kidney and liver functions, and cholesterol. - Discussion on referral to a new weight management program. [facility] Medical History (Updated 03/05/25 @ 14:52 by Gloria Argueta MD) Wears contact lenses Gallstones Numbness and tingling in right hand Gestational diabetes Scalp cyst Miscarriage History of chicken pox Obesity Surgical History History of cholecystectomy Hx of removal of cyst History of tonsillectomy Family History Father High cholesterol CVD (cardiovascular disease) Mother HTN (hypertension) Maternal Grandmother Chronic mental illness ETOHism Maternal Aunt Asthma Paternal Aunt Diabetes mellitus Other Mental health disorder Social History Household Members: Children Both parents involved: Yes Housing: Apartment Are you a primary wound care specialist to a significant other at home: No Do you presently have visiting nurse or other home services: No Alcohol intake: former Patient Tobacco Use Status: Never used Tobacco e-Cigarette/Vaping Use: Never Used Second Hand Smoke Exposure: No Special jony needs: No Agree to transfusion: Yes service: No Current occupational status: employed Current occupational exposures/hazards: No Sexual orientation: Straight/Heterosexual Gender identity: Female Cognitive needs: No Hearing needs: No Vision needs: Yes (contacts) Female Reproductive History Menstrual Age of Menarche: 15 Questionnaire PHQ-9 Over the last 2 weeks, how often have you been bothered by any of the following problems? 1. Little interest or pleasure in doing things: not at all 2. Feeling down, depressed, or hopeless: not at all 3. Trouble falling or staying asleep, or sleeping too much: not at all 4. Feeling tired or having little energy: not at all 5. Poor appetite or overeating: not at all 6. Feeling bad about yourself - or that you are a failure or have let yourself or your family down: not at all 7. Trouble concentrating on things, such as reading the newspaper or watching television: not at all 8. Moving or speaking so slowly that other people could have noticed. Or the opposite - being so fidgety or restless that you have been moving around a lot more than usual: not at all 9. Thoughts that you would be better off or of hurting yourself in some way: not at all Total score: 0 Depression Screening Interpretation: Negative Depression Screening Done: Yes 31429 - PHQ-9 Billing: Yes Source: Developed by Drs. Sascha Araujo, Anjali Head, Maynor Malone and colleagues, with an educational letty from [employer]. Thrive Questionnaire Date Thrive assessed: 02/26/25 I am a: Patient What is your living situation today?: I have a steady place to live Within the past 12 months, did the food you bought not last and you didn't have the money to get more?: Never true Within the past 12 months, did you worry whether your food would run out before you got money to buy more?: Never true Do you have trouble paying for medicines?: No Do you have trouble getting transportation to medical appointments?: No Do you have trouble paying your heating and electricity bill?: No Do you have trouble taking care of your child, family member or friend?: No Do you have trouble with day-to-day activities such as bathing, preparing meals, shopping, managing finances, etc.?: No Are you currently unemployed and looking for a job?: Yes Are you interested in more education?: No Please select the resources that you would like help with: None Currently or been in a relationship where the following occur: No concerns reported THRIVE Score: 0 AUDIT C Alcohol Use Questionnaire (AUDIT-C) 1. How often do you have a drink containing alcohol?: Never Total Score: 0 Score Reviewed/Action Taken: No ROBYN-7 AMB Questionnaire ROBYN-7 Date ROBYN - 7 assessed: 03/05/25 Feeling nervous, anxious, or on edge: 0 = Not at all Not being able to stop or control worryin = Not at all Worrying too much about different things: 0 = Not at all Trouble relaxin = Not at all Being so restless that it is hard to sit still: 0 = Not at all Becoming easily annoyed or irritable: 0 = Not at all Feeling afraid as if something awful might happen: 0 = Not at all Total ROBYN-7 score (0-4 normal; 5-9 mild; 10-14 moderate; 15-21 severe): 0 Source: Developed by Anjali Jimenez Kurt Kroenke and colleagues, with an educational letty from [employer]. ROBYN-7 Assessment Billing ROBYN-7 Assessment Tool: ROBYN-7 Assessment 05219 Review of Systems Const All systems reviewed & are unremarkable except as noted in HPI and below Eyes Reports no additional complaints, Denies change in vision and Denies other visual disturbances Card Denies chest pain at rest, Denies chest pain with activity, Denies edema, Denies irregular heart rhythm, Denies claudication, Denies dyspnea, Denies dyspnea on exertion, Denies orthopnea, Denies paroxysmal nocturnal dyspnea and Denies slow heart rate Resp Denies cough, Denies dyspnea and Denies dyspnea on exertion GI Denies abdominal pain, Denies change in bowel habits, Denies excessive flatus, Denies nausea and Denies vomiting Physical exam (Primary Care) Vital Signs: Last Vital Signs BP 130/72 03/05/25 14:31 BMI result Body Mass Index 43.9 BMI Assessment/Plan discussion: High BMI High, discussed plan: lifestyle, weight reduction, dietary and physical activity Tobacco/Smoking Status: Tobacco use Status Tobacco use date assessed 03/05/25 03/05/25 14:37 Patient Tobacco Use Status Never used Tobacco 03/05/25 14:37 e-Cigarette/Vaping Use Never Used 03/05/25 14:37 PHQ-9: PHQ-9 Score PHQ-9: Total score 0 03/05/25 14:37 Depression Screening Interpretation: Negative Thrive Assessment: Date of Thrive Assessment Date Thrive assessed 02/26/25 03/05/25 14:37 Currently or been in a relationship where the following occur: No concerns reported [facility] Head: Yes normal to inspection, Yes normocephalic and Yes atraumatic Ears: external ears normal Eyes General: appearance normal, both eyes and all related structures Eyelids: Yes eyelids normal Conjunctivae: conjunctivae normal Neck Neck: Yes normal visual inspection and Yes supple Resp Effort & Inspection: normal respiratory effort Auscultation: clear to auscultation bilaterally Cardio Jugular venous distension: no JVD Rate: regular rate Rhythm: regular rhythm Heart sounds: S1 normal heart sound present and S2 normal heart sound present GI Inspection: Yes normal to inspection Palpation (GI): Soft to palpation and nontender Auscultation: normal bowel sounds Skin General skin exam: no rashes or lesions noted Neuro General: no focal motor deficits Extrem General: Yes full ROM Psych Appearance: grossly normal Coding Level of Care Code Est Pt Level 3 (76412) Est Pt Prev Care 18-39y(61187) Diagnoses Physical exam Z00.00 Obesity, morbid, BMI 40.0-49.9 E66.01 Iron deficiency anemia D50.9 Additional Codes PHQ-9 - 58484 - PHQ-9 Billing: Yes ([id number]) ROBYN-7 Assessment Billing - ROBYN-7 Assessment Tool: ROBYN-7 Assessment 93869 ([id number]) Time Spent (min) 32 Assessment & Plan Assessment & Plan (1) Physical exam: Comment: Needs eye and dental exams COVID IZ's X 1 with another schedule coming up UTD with papa with [facility]. Has IUD placed 01/2022. Code(s): Z00.00 - Encounter for general adult medical examination without abnormal findings Category: Medical (2) Obesity, morbid, BMI 40.0-49.9: Code(s): E66.01 - Morbid (severe) obesity due to excess calories Category: Medical (3) Iron deficiency anemia: Code(s): D50.9 - Iron deficiency anemia, unspecified Category: Medical Plan The patient's management includes continuation of her inhaler use for asthma and as-needed cetirizine for allergic rhinitis. Her vitamin D and deficiencies are addressed with ongoing supplementation. There is a need to monitor anemia via upcoming blood tests that will assess hemoglobin and other essential functions. Due to prior dissatisfaction, she agreed to a referral to a new weight management program. There were discussions on the management of her oral contraceptive, Apri, without any immediate adjustment. Emphasis was placed on maintenance of health through recommended laboratory testing and referrals. Patient was informed and verbally consented to the use of an ambient scribe for clinic note documentation during this visit. I engaged in a dialogue regarding the overall health and planned management encompassing asthma, allergic rhinitis, and vitamin deficiencies. We discussed the necessity of adherence to medications and supplements to manage these conditions effectively. I emphasized the need for follow-up blood tests to track anemia and evaluate vitamin levels. The patient's unsatisfactory experience with a weight management program was addressed, and a referral to a different center was decided upon. We talked about maintaining contraceptive use with Apri, highlighting its importance. The approach was to ensure understanding of the strategies and commitment to continuity of care. Orders: Orders Vitamin B12 and Folate Today E53.8 - Deficiency of other specified B group vitamins Comprehensive [place]. Panel Fast Today E66.01 - Morbid (severe) obesity due to excess calories Vitamin D 25-OH Total Today E55.9 - Vitamin D deficiency, unspecified Complete Blood Count Auto Diff Today D64.9 - Anemia, unspecified IRON PROFILE Today D64.9 - Anemia, unspecified Lipid Panel Today E66.01 - Morbid (severe) obesity due to excess calories, E78.5 - Hyperlipidemia, unspecified Vitamin A Today E50.9 - Vitamin A deficiency, unspecified Referrals Medical Weight Management Referral E66.01 - Morbid (severe) obesity due to excess calories Patient Instructions: - Continue using your inhaler as needed for asthma symptoms. - Take cetirizine as needed for allergy symptoms. - Maintain your intake of vitamins D, B12, and A. - Use ferrous sulfate daily to manage anemia. - Prepare for upcoming blood tests for anemia and vitamin levels. - Follow guidance on a new weight management referral. - Continue Apri as your chosen method of contraception. - Follow up as scheduled for re-evaluation of your blood work results.
[2025-03-05 14:31] VITALS: BP 130/72; BMI 43.9
== END 2025-03-05 14:53 | disposition home or self-care (01) ==
LOC: HO.HMCH 14:23
PROVIDERS: PCP Internal Medicine; Visit Provider Internal Medicine
DX: Z00.00 Encounter for general adult medical examination without abnormal findings (principal); D50.9 Iron deficiency anemia, unspecified; E66.01 Morbid (severe) obesity due to excess calories; Z68.41 Body mass index [BMI] 40.0-44.9, adult

== ENCOUNTER → 2025-03-05 14:22 | Outpatient (BNVA) | payer OTHER, SELFPAY | PROVIDERS: PCP Internal Medicine; Visit Provider Internal Medicine | DX: Z00.00 Encounter for general adult medical examination without abnormal findings (principal); E66.01 Morbid (severe) obesity due to excess calories; Z68.41 Body mass index [BMI] 40.0-44.9, adult; D50.9 Iron deficiency anemia, unspecified | CPT/HCPCS: 96127; 99212; 99395 ==

== ENCOUNTER 2025-08-13 09:49 | Outpatient (AMB) | payer OTHER, SELFPAY ==
--- OUTSIDE RECORDS SUMMARY | 2025-08-08 11:30 | XMS_ITS | Encounter Summary ---
Author Organization [facility] Address [address] [place] [address] Care Team Providers Care Canopy Inspector Name Role Phone Buster Ragland MD Primary Care Provider [phone] Reason for Visit * Reason Comments Consult New patient * Consultation (Routine) - Closed Specialty Diagnoses / Procedures Referred By Shari caballero Referred To Contact Bariatrics Diagnoses Morbid (severe) obesity due to excess calories (CMS/HCC V24, CMS/HCC V28) Procedures DC CONSULTATION OFFICE NEW/ESTAB PATIENT 30 MIN Gloria Agrueta MD [address] [place] [address] Phone: tel: Hazel Alcantara MD [address] [address] Phone: tel: fax: Referral ID Status Reason Start Date Expiration Date Visits Re quested Visits Authorized [id number] Closed 03/06/2025 03/06/2026 1 1 Encounter Details Date Type Department Care Team ([facility] Contact Info) Description 08/08/2025 11:30 AM EDT Consult Bariatric Surgery - [address] [phone] Hazel Alcantara MD [address] [place] [address] Class 3 severe obesity due to excess calories with body mass index (BMI) of 45.0 to 49.9 in adult, unspecified whether serious comorbidity present (CMS/HCC V24, CMS/HCC V28) (Primary Dx) Social History Tobacco Use Types Packs/Day Years Used Date Smoking Tobacco: Never Assessed Comments Unknown Sex and Gender Information Value Date Recorded Sex Assigned at Not on file Legal Sex Female 12:47 PM EST Gender Identity Not on file Sexual Orientation Not on file documented as of this encounter Last Filed Vital Signs Vital Sign Reading Time Taken Comments Blood Pressure 126/78 08/08/2025 11:20 AM EDT Pulse 79 08/08/2025 11:20 AM EDT Temperature 36.6 C (97.8 F) 08/08/2025 11:20 AM EDT Respiratory Rate - - Oxygen Saturation - - Inhaled Oxygen Concentration - - Weight 119 kg (262 lb) 08/08/2025 11:20 AM EDT Height 160 cm (5' 3 ) 08/08/2025 11:20 AM EDT Body Mass Index 46.41 08/08/2025 11:20 AM EDT documented in this encounter Progress Notes * Hazel Alcantara MD - 08/08/2025 11:30 AM EDT Subjective: Patient ID: Cynthia Mac is a 35 y.o. female. History of Present Illness The patient is a female who presents for weight loss. She has been struggling with her weight since childhood, with no family history of obesity. She attributes her overeating to boredom and anxiety. She has had four pregnancies, each contributing to her weight gain. Currently, she is unemployed and spends most of her time with her children. She reports frequent snacking throughout the day and lacks regular exercise. Previously, she was prescribed injections for weight loss, but due to insurance issues and financial constraints, she could not continue this treatment. She also underwent a 3-month course of phentermine under another doctor's supervision. Last year, she was part of a weight loss program but discontinued it due to lack of communication from the program. She was considering surgery as a weight loss option but did not lose enough weight to qualify. Her goal was to lose 30 pounds, but she only managed to shed 10 pounds. She has not had any recent blood work done and reports no symptoms of sleep apnea. She has not eaten today as she experiences stomach pain after meals, a condition that started after her gallbladder removal. She has a history of low iron, vitamin B12, A, and D3 levels. She had gestational diabetes during her last two pregnancies, which were 3 years ago, but is not currently on any medication for it. PAST SURGICAL HISTORY: Gallbladder removal SOCIAL HISTORY Occupations: Currently unemployed Exercise: No regular exercise; stays active with children who play soccer Diet: Snacks frequently throughout the day FAMILY HISTORY - Negative for weight problems in family history The following portions of the patient's chart were reviewed in this encounter and updated as appropriate: . Review of Systems Objective: BP 126/78 Pulse 79 Temp 36.6 ??C (97.8 ??F) (Temporal) Ht 1.6 m (63 ) Wt 119 kg (262 lb) BMI 46.41 kg/m?? Physical Exam Physical Exam Results Assessment & Plan No follow-ups on file. Attestation This is Hazel Alcantara MD, I have verbally consented Cynthia Mac prior to the recording. I have advised Cynthia Mac that he/she may object to the recording and require the recording to be turned off at any time. Referring physician: Buster Ragland MD Bubba is a 35 y.o. year old female who MsBearpresents for surgical consultation regarding obesity. HPI: Ms. Mac Onset: Teen age years Factors: anxiety, depression . Previous attempts: [facility] program. Had been able to lose 10 lbs. Eating habits: Snack a lot, sweets. Through day. Exercise: Not much, busy with kids. Comorbidities: Gestational diabetes. BMI: ROS: GENERAL: No malaise, significant unintentional weight loss, fever, chills or night sweats. HEENT: No changes in hearing or vision, no nose bleeds or other nasal problems. NECK: No lumps, goiter, pain or significant neck swelling RESPIRATORY: No cough, wheezing or shortness of breath CARDIOVASCULAR: No chest pain, leg swelling or palpitations. GI: No abdominal discomfort, nausea, vomiting, or change in bowel habits. : No dysuria, frequency or incontinence. SKIN: No lesions, rash or itching. HEMATOLOGY: No prolonged bleeding, easy bruisability. LYMPHOLOGY No swollen nodes. MUSCULOSKELETAL: No abnormalities. NEURO: No abnormalities. All other systems reviewed which are negative. PAST MEDICAL HISTORY: Patient Active Problem List Diagnosis Gestational diabetes mellitus (GDM) in childbirth, diet controlled Obesity in , antepartum, third trimester PAST SURGICAL HISTORY: Past Surgical History: Procedure Laterality Date OTHER SURGICAL HISTORY PROCEDURE: ---- OTHER ----; COMMENT: cyst removed from scalp TONSILLECTOMY PROCEDURE: HISTORICAL TONSILLECTOMY SOCIAL HISTORY: Social History Tobacco Use Smoking status: Not on file Smokeless tobacco: Not on file Substance Use Topics Alcohol use: Not on file FAMILY HISTORY: No family history on file. No family status information on file. MEDICATIONS: There are no discontinued medications. ACTIVE MEDICATIONS: Outpatient Medications Marked as Taking for the 08/08/25 encounter (Consult) with Hazel Alcantara MD Medication Sig Dispense Refill Apri 0.15-0.03 mg per tablet Take 1 tablet by mouth 1 (one) time each day. ferrous sulfate 325 mg (65 mg elemental iron) tablet Take 1 tablet (325 mg total) by mouth 1 (one) time each day. ALLERGIES: No Known Allergies PHYSICAL EXAM: Visit Vitals BP 126/78 Pulse 79 Temp 36.6 ??C (97.8 ??F) (Temporal) Ht 1.6 m (63 ) Wt 119 kg (262 lb) BMI 46.41 kg/m?? Smoking Status Never Assessed BSA 2.17 m?? APPEARANCE: Alert and oriented and in no acute distress EYES: Conjunctiva normal and sclera normal and anicteric. NECK: Neck supple with no adenopathy. HEART: No JVD. LUNG: No retractions. LYMPH NODES: No gross cervical or clavicular lymphadenopathy. ABDOMEN: , non-distended, EXTREMITIES: Extremities warm and well perfused without clubbing, cyanosis, or edema. SKIN: Skin color and texture normal. No rashes. NEUROLOGIC: Alert and oriented ??3. No obvious motor deficits in the extremities. LABS/IMAGING: @AORD@ ASSESSMENT: 1. Class 3 severe obesity due to excess calories with body mass index (BMI) of 45.0 to 49.9 in adult, unspecified whether serious comorbidity present (CMS/HCC V24, [facility] V28) Comprehensive metabolic panel Lipid panel with reflex to direct LDL Hemoglobin A1c Thyroid stimulating hormone PLAN: 1. I discussed with the patient the different procedures available including the sleeve gastrectomy, the gastric bypass and the single anastomosis duodenal ileal bypass with sleeve. Indications, benefits, risks and complications were discussed. I also discussed with the patient the different medical options. I explained the mechanism of action, the potential adverse effects and the expected results. These included phentermine, topiramate, naltrexone, bupropion and the different GLP-1 medications. The patient has decided that she wants to proceed with the bariatric surgery program. I discussed the sleeve gastrectomy and gastric bypass with the indications, benefits, potential risks and complications. I discussed the advantages and disadvantages of each procedure. The patient will start our program with a nutritional counseling, psychological evaluation,support groups and information meetings. I will see the patient again once the program has been completed. documented in this encounter Plan of Treatment Upcoming Encounters Date Type Department Care Team (Late st Contact Info) Description 10/15/2025 11:00 AM [facility] Nutrition Bariatric Surgery - [place] 175 [facility] [address] [place] [address] Aneglina Dumont, RD [address] [place] [address] documented as of this encounter Results * Thyroid stimulating hormone (08/08/2025 11:53 AM EDT) Pathologist [facility] TSH 1.93 0.40 - 4.00 mcIU/mL LAB CHEMISTRY METHOD 08/08/2025 4:06 PM EDT [facility] Blood Venous blood specimen / Unknown Venipuncture / Unknown 08/08/2025 11:53 AM EDT 08/08/2025 11:53 AM EDT us Hazel Alcantara MD LAB BLOOD ORDERABLES Final R esult [facility] [address] [place] [address], * Hemoglobin A1c (08/08/2025 11:53 AM EDT) Pathologist [facility] Hemoglobin A1C 5.8 <6.5 % LAB CHEMISTRY METHOD 08/08/2025 9:31 PM EDT [facility] Mean Bld Glu Estim. 120 mg/dL LAB CHEMISTRY METHOD 08/08/2025 9:31 PM EDT [facility] Blood Venous blood specimen / Unknown Venipuncture / Unknown 08/08/2025 11:53 AM EDT 08/08/2025 11:53 AM EDT us Hazel Alcantara MD LAB BLOOD ORDERABLES Final R esult [facility] [address] [place] [address], [place] [phone] * (ABNORMAL) Lipid panel with reflex to direct LDL (08/08/2025 11:53 AM EDT) Cholesterol 197 0 - 200 mg/dL LAB CHEMISTRY METHOD 08/08/2025 6:21 PM EDT [facility] Triglycerides 99 0 - 150 mg/dL LAB CHEMISTRY METHOD 08/08/2025 6:21 PM EDT [facility] HDL 50 >=40 mg/dL LAB CHEMISTRY METHOD 08/08/2025 6:21 PM EDT [facility] LDL Calculated 127(H) 0 - 100 mg/dL LAB CHEMISTRY METHOD 08/08/2025 6:21 PM EDT [facility] Comment:Estimated LDL Calcul ated using equation: Total cholesterol - HDL cholesterol - (Triglycerides/5) VLDL Cholesterol Honorio 19.8 mg/dL LAB CHEMISTRY METHOD 08/08/2025 6:21 PM EDT [facility] Non HDL Chol. (LDL+VLDL) 147(H) <145 mg/dL LAB CHEMISTRY METHOD 08/08/2025 6:21 PM EDT [facility] Chol/HDL Ratio 3.9 0.0 - 4.4 LAB CHEMISTRY METHOD 08/08/2025 6:21 PM T [facility] Blood Venous blood specimen / Unknown Venipuncture / Unknown 08/08/2025 11:53 AM EDT 08/08/2025 11:53 AM EDT us Hazel Alcantara MD LAB BLOOD ORDERABLES Final R esult [facility] [address] [place] [address], * Comprehensive metabolic panel (08/08/2025 11:53 AM EDT) Sodium 140 133 - 145 mmol/L LAB CHEMISTRY METHOD 08/08/2025 6:21 PM [facility] Potassium 4.2 3.5 - 5.5 mmol/L LAB CHEMISTRY METHOD 08/08/2025 6:21 PM [facility] Chloride 106 96 - 110 mmol/L LAB CHEMISTRY METHOD 08/08/2025 6:21 PM [facility] CO2 26 21 - 32 mmol/L LAB CHEMISTRY METHOD 08/08/2025 6:21 PM [facility] Anion Gap 8 3 - 11 LAB CHEMISTRY METHOD 08/08/2025 6:21 PM [facility] Glucose 86 70 - 100 mg/dL LAB CHEMISTRY METHOD 08/08/2025 6:21 PM [facility] BUN 10 5 - 25 mg/dL LAB CHEMISTRY METHOD 08/08/2025 6:21 PM [facility] Creatinine 0.51 0.50 - 1.10 mg/dL LAB CHEMISTRY METHOD 08/08/2025 6:21 PM [facility] eGFR 127 >=60 mL/min/1. 73m2 LAB CHEMISTRY METHOD 08/08/2025 6:21 PM [facility] Comment:Calculation based on the Chronic Kidney Disease Epidemiology Collaboration (CKD-EPI) equation refit without adjustment for race. BUN/Creatinine Ratio 19.6 LAB CHEMISTRY METHOD 08/08/2025 6:21 PM [facility] Calcium 9.7 8.5 - 10.5 mg/dL LAB CHEMISTRY METHOD 08/08/2025 6:21 PM EDT [facility] AST (SGOT) 32 10 - 42 unit/L LAB CHEMISTRY METHOD 08/08/2025 6:21 PM EDT [facility] ALT (SGPT) 52 10 - 60 unit/L LAB CHEMISTRY METHOD 08/08/2025 6:21 PM EDT [facility] Alkaline Phosphatase 89 42 - 121 unit/L LAB CHEMISTRY METHOD 08/08/2025 6:21 PM EDT [facility] Total Protein 7.4 6.0 - 8.0 g/dL LAB CHEMISTRY METHOD 08/08/2025 6:21 PM EDT [facility] Albumin 4.0 3.2 - 5.0 g/dL LAB CHEMISTRY METHOD 08/08/2025 6:21 PM [facility] Total Bilirubin 0.7 0.0 - 1.4 mg/dL LAB CHEMISTRY METHOD 08/08/2025 6:21 PM EDT [facility] Blood Venous blood specimen / Unknown Venipuncture / Unknown 08/08/2025 11:53 AM EDT 08/08/2025 11:53 AM EDT us Hazel Alcantara MD LAB BLOOD ORDERABLES Final R esult [facility] [address] [place] [address], documented in this encounter Visit Diagnoses Diagnosis Class 3 severe obesity due to excess calories with body mass index (BMI) of 45.0 to 49.9 in adult, unspecified whether serious comorbidity present (CMS/HCC V24, CMS/HCC V28)- Primary documented in this encounter Historical Medications * This list may reflect changes made after this encounter. ferrous sulfate 325 mg (65 mg elemental iron) tablet Take 1 tablet (325 mg total) by mouth 1 (one) time each day. 12/24/2024 Apri 0.15-0.03 mg per tablet Take 1 tablet by mouth 1 (one) time each day. 08/01/2025 added in this encounter Care Teams Canopy Inspector Relationship Specialty Start Date End Date Buster Ragland MD [address] [place] [address] PCP - General Internal Medicine 03/06/25 documented as of this encounter
--- NOTE | 2025-08-13 10:29 | AM.OFFVISNUR ---
Intake Visit Reasons: TB Implant Allergies No Known Allergies (No Known Allergies*) Allergy (Verified 03/05/25 14:41) Office Meds tuberculin PPD 5 tub. unit/0.1 mL intradermal injection solution Performing Provider: Gloria Argueta MD [facility] [facility] [facility] [place] [facility] Administered by: Gabrielle Kaba LPN on 08/13/25 09:52 Dose Route Admin Location Dispensed Lot Number Expiration Date [facility] Component Engineer 0.1 mL intradermal left forearm 0.1 mL [id number] 01/11/28 44210-117-19 [employer] Total Dispensed Waste 0.1 mL 0 % Assessment & Plan Assessment & Plan Orders: Orders AMB PPD Planted Today Z11.1 - Encounter for screening for respiratory tuberculosis Coding
--- OUTSIDE RECORDS SUMMARY | 2025-08-13 10:41 | XMS_ITS | Clinical Summary ---
Author Organization [address] [place] [address] [place] [phone] Phone Care Team Providers Care Heel Washer Stringing Machine Operator Name Role Phone Bsuter Ragland MD Primary Care Provider [phone] Allergies No known active allergies Medications Apri 0.15-0.03 mg per tablet Take 1 tablet by mouth 1 (one) time each day. 08/01/2025 Active ferrous sulfate 325 mg (65 mg elemental iron) tablet Take 1 tablet (325 mg total) by mouth 1 (one) time each day. 12/24/2024 Active Active Problems Problem Noted Date Diagnosed Date Gestational diabetes mellitu s (GDM) in childbirth, diet controlled 07/10/2020 Obesity in , antepartum, third trimeste r 07/10/2020 Encounters Date Type Department Care Team Description 08/08/2025 11:30 AM EDT Consult Bariatric Surgery - [address] [place] [address] Hazel Alcantara MD Class 3 severe obesity due to excess calories with body mass index (BMI) of 45.0 to 49.9 in adult, unspecified whether serious comorbidity present (CMS/HCC V24, CMS/HCC V28) (Primary Dx) from Last 3 Months Surgical History Surgery Date Site/Laterality Comments TONSILLECTOMY PROCEDURE: HISTORICAL TONSILLECTOMY OTHER SURGICAL HISTORY PROCEDURE: ---- OTHER ----; COMMENT: cyst removed from scalp Medical History Medical History Date Comments Obesity DX:Obesity Social History Tobacco Use Types Packs/Day Years Used Date Smoking Tobacco: Never Assessed Comments Unknown Sex and Gender Information Value Date Recorded Sex Assigned at Not on file Legal Sex Female 12:47 PM EST Gender Identity Not on file Sexual Orientation Not on file Obstetrics History Last Filed Vital Signs Vital Sign Reading [...] Mass Index 46.41 08/08/2025 11:20 AM EDT Plan of Treatment Upcoming Encounters Date Type Department Care Team (Late st Contact Info) Description 10/15/2025 11:00 AM EST Nutrition Bariatric Surgery - [address] [place] [address] Angelina Dumont, RD [address] [place] [address] Health Maintenance Due Date Last Done Comments Hepatitis B Vaccines (1 of 3 - 19+ 3-dose series) 2011 Cervical Cancer Screening: P ap Smear 2013 HPV Vaccines (1 - 3-dose SCD M series) 2019 Depression Screening 11/14/2024 HIV Screening 03/07/2025 Hepatitis C Screening 03/07/2025 Social Influencers of Health Screening 03/07/2025 COVID-19 Vaccine ( - 2023-2 5 season) 2025 Influenza Vaccine (#1) 2025 12/03/2021 Cholesterol Screening (Lipid Panel) 08/08/2030 08/08/2025 DTaP,Tdap,and Td Vaccines (2 - Td or Tdap) 12/03/2031 12/03/2021 RSV Immunization Adult Patie nts (1 - 1-dose 75+ series) 2067 HIB Vaccines Aged Out No longer eligi ble based on patient's age to complete this topic Hepatitis A Vaccines Aged Out No long er eligible based on patient's age to complete this topic IPV Vaccines Aged Out No longer eligi ble based on patient's age to complete this topic MMR Vaccines Aged Out No longer eligi ble based on patient's age to complete this topic Meningococcal ACWY Vaccine Aged Out N o longer eligible based on patient's age to complete this topic Meningococcal B Vaccine Aged Out No l onger eligible based on patient's age to complete this topic Pneumococcal Vaccine: Pediat rics (0 to 5 Years) and At-Risk Patients (6 to 49 Years) Aged Out No longer eligi ble based on patient's age to complete this topic RSV Immunization Patients Un mckay 20 months Aged Out No longer eligible b ased on patient's age to complete this topic Varicella Vaccines Aged Out No longer eligible based on patient's age to complete this topic Procedures Procedure Name Priority Date/Time Associated Diagnosis Comments COMPREHENSIVE METABOLIC PANEL Routine 08/08/2025 11:53 AM EDT Class 3 severe obesity due to excess calories with body mass index (BMI) of 45.0 to 49.9 in adult, unspecified whether serious comorbidity present (CMS/[facility] V24, CMS/[facility] V28) LIPID PANEL WITH REFLEX TO DIRECT LDL Routine 08/08/2025 11:53 AM EDT Class 3 severe obesity due to excess calories with body mass index (BMI) of 45.0 to 49.9 in adult, unspecified whether serious comorbidity present (CMS/HCC V24, CMS/[facility] V28) HEMOGLOBIN A1C Routine 08/08/2025 11:53 AM EDT Class 3 severe obesity due to excess calories with body mass index (BMI) of 45.0 to 49.9 in adult, unspecified whether serious comorbidity present (CMS/HCC V24, CMS/[facility] V28) THYROID STIMULATING HORMONE Routine 08/08/2025 11:53 AM EDT Class 3 severe obesity due to excess calories with body mass index (BMI) of 45.0 to 49.9 in adult, unspecified whether serious comorbidity present (CMS/HCC V24, CMS/[facility] V28) from Last 3 Months Results * (ABNORMAL) Lipid panel with reflex to direct LDL (08/08/2025 11:53 AM EDT) [facility] Cholesterol 197 0 - 200 mg/dL LAB CHEMISTRY METHOD 08/08/2025 6:21 PM EDT [facility] Triglycerides 99 0 - 150 mg/dL LAB CHEMISTRY METHOD 08/08/2025 6:21 PM EDT [facility] HDL 50 >=40 mg/dL LAB CHEMISTRY METHOD 08/08/2025 6:21 PM EDT [facility] LDL Calculated 127(H) 0 - 100 mg/dL LAB CHEMISTRY METHOD 08/08/2025 6:21 PM EDT [facility] Comment:Estimated LDL Calcul ated using equation: Total cholesterol - HDL cholesterol - (Triglycerides/5) VLDL Cholesterol Honorio 19.8 mg/dL LAB CHEMISTRY METHOD 08/08/2025 6:21 PM EDT [facility] Non HDL Chol. (LDL+VLDL) 147(H) <145 mg/dL LAB CHEMISTRY METHOD 08/08/2025 6:21 PM EDT [facility] Chol/HDL Ratio 3.9 0.0 - 4.4 LAB CHEMISTRY METHOD 08/08/2025 6:21 PM EDT [facility] Blood Venous blood specimen / Unknown Venipuncture / Unknown 08/08/2025 11:53 AM EDT 08/08/2025 11:53 AM EDT us Hazel Alcantara MD LAB BLOOD ORDERABLES Final R esult [facility] [address] [place] [address], * Thyroid stimulating hormone (08/08/2025 11:53 AM EDT) TSH 1.93 0.40 - 4.00 mcIU/mL LAB CHEMISTRY METHOD 08/08/2025 4:06 PM EDT [facility] Blood Venous blood specimen / Unknown Venipuncture / Unknown 08/08/2025 11:53 AM EDT 08/08/2025 11:53 AM EDT Hazel Alcantara MD LAB BLOOD ORDERABLES Final R esult [facility] [address] [place] [address], [place] [phone] * Hemoglobin A1c (08/08/2025 11:53 AM EDT) Pathologist [facility] Hemoglobin A1C 5.8 <6.5 % LAB CHEMISTRY METHOD 08/08/2025 9:31 PM EDT [facility] Mean Bld Glu Estim. 120 mg/dL LAB CHEMISTRY METHOD 08/08/2025 9:31 PM EDT [facility] Blood Venous blood specimen / Unknown Venipuncture / Unknown 08/08/2025 11:53 AM EDT 08/08/2025 11:53 AM EDT Hazel Alcantara MD LAB BLOOD ORDERABLES Final R esult [facility] [address] [place] [address], [place] [phone] * Comprehensive metabolic panel (08/08/2025 11:53 AM EDT) [facility] Sodium 140 133 - 145 mmol/L LAB CHEMISTRY METHOD 08/08/2025 6:21 PM EDT [facility] Potassium 4.2 3.5 - 5.5 mmol/L LAB CHEMISTRY METHOD 08/08/2025 6:21 PM EDT [facility] Chloride 106 96 - 110 mmol/L LAB CHEMISTRY METHOD 08/08/2025 6:21 PM EDT [facility] CO2 26 21 - 32 mmol/L LAB CHEMISTRY METHOD 08/08/2025 6:21 PM EDT [facility] Anion Gap 8 3 - 11 LAB CHEMISTRY METHOD 08/08/2025 6:21 PM EDT [facility] Glucose 86 70 - 100 mg/dL LAB CHEMISTRY METHOD 08/08/2025 6:21 PM [facility] BUN 10 5 - 25 mg/dL LAB CHEMISTRY METHOD 08/08/2025 6:21 PM [facility] Creatinine 0.51 0.50 - 1.10 mg/dL LAB CHEMISTRY METHOD 08/08/2025 6:21 PM [facility] eGFR 127 >=60 mL/min/1. 73m2 LAB CHEMISTRY METHOD 08/08/2025 6:21 PM [facility] Comment:Calculation based on the Chronic Kidney Disease Epidemiology Collaboration (CKD-EPI) equation refit without adjustment for race. BUN/Creatinine Ratio 19.6 LAB CHEMISTRY METHOD 08/08/2025 6:21 PM [facility] Calcium 9.7 8.5 - 10.5 mg/dL LAB CHEMISTRY METHOD 08/08/2025 6:21 PM [facility] AST (SGOT) 32 10 - 42 unit/L LAB CHEMISTRY METHOD 08/08/2025 6:21 PM [facility] ALT (SGPT) 52 10 - 60 unit/L LAB CHEMISTRY METHOD 08/08/2025 6:21 PM [facility] Alkaline Phosphatase 89 42 - 121 unit/L LAB CHEMISTRY METHOD 08/08/2025 6:21 PM [facility] Total Protein 7.4 6.0 - 8.0 g/dL LAB CHEMISTRY METHOD 08/08/2025 6:21 PM [facility] Albumin 4.0 3.2 - 5.0 g/dL LAB CHEMISTRY METHOD 08/08/2025 6:21 PM [facility] Total Bilirubin 0.7 0.0 - 1.4 mg/dL LAB CHEMISTRY METHOD 08/08/2025 6:21 PM [facility] Blood Venous blood specimen / Unknown Venipuncture / Unknown 08/08/2025 11:53 AM EDT 08/08/2025 11:53 AM EDT us Hazel Alcantara MD LAB BLOOD ORDERABLES Final R esult [facility] [address] [place] [address], [place] [phone] from Last 3 Months Insurance [facility] [employer] Care Teams Heel Washer Stringing Machine Operator Relationship Specialty Start Date End Date Buster Ragland MD [address] [place] [address] PCP - General Internal Medicine 03/06/25
== END 2025-08-13 10:31 | disposition home or self-care (01) ==
LOC: HO.HMCH 09:50
PROVIDERS: PCP Internal Medicine; Visit Provider Internal Medicine
DX: Z11.1 Encounter for screening for respiratory tuberculosis (principal)

== ENCOUNTER → 2025-08-13 09:49 | Outpatient (BNVA) | payer OTHER, SELFPAY | PROVIDERS: PCP Internal Medicine; Visit Provider Internal Medicine | DX: Z11.1 Encounter for screening for respiratory tuberculosis (principal) | CPT/HCPCS: 86580 ==